=== PATIENT | female | born 1965 | race Caucasian/White ===

== ENCOUNTER 2017-01-01 15:46 | Emergency (ER) | payer BC ==
[~2017-01-01] VITALS: Ht 162.6 cm; Wt 122.9 kg
[2017-01-01] MEDS ORDERED: PREV30CA11 PO (16:03)
[2017-01-01] MEDS ORDERED: NAPR500T PO (17:50)
[2017-01-01 17:58] VITALS: BP 136/75
--- NOTE | 2017-01-01 18:02 | REP ---
RIGHT LOWER EXTREMITY ULTRASOUND: HISTORY: Pain and swelling. COMPARISON: None. TECHNIQUE: Multiple ultrasonographic images of the deep venous structures of the right thigh were obtained from the common femoral vein to the popliteal vein along with Doppler interrogation and color flow Doppler images. FINDINGS: There is no abnormal echogenic material seen within any of the visualized deep venous structures that would suggest acute thrombosis. Coaptation is unremarkable throughout. Doppler interrogation shows an expected response to respiratory variability and augmentation. The color flow images show what appears to be a normal vascular pattern throughout. IMPRESSION: There is no ultrasonographic evidence of deep venous thrombosis involving any of the visualized deep venous structures of the right thigh, as described above. Signed by Gee Redd DO 01/03/2017 03:43 P
== END 2017-01-01 18:02 | disposition home or self-care (01) ==
LOC: M ED 17:19
DX: M25.561 Pain in right knee (principal); E11.9 Type 2 diabetes mellitus without complications; I51.7 Cardiomegaly; E66.01 Morbid (severe) obesity due to excess calories; Z88.5 Allergy status to narcotic agent; Z87.891 Personal history of nicotine dependence; Z79.899 Other long term (current) drug therapy

== ENCOUNTER → 2017-01-16 | Outpatient (CLI) | payer BC ==
[~2017-01-16] MED LIST: NAPR500T PO; PREV30CA11 PO
[2017-01-16 10:59] LABS: ALBUMIN 3.4 GM/DL (3.2-5.2); ALKALINE PHOSPHATASE 88 U/L (45-117); ALT/SGPT 30 U/L (12-78); ANION GAP 10 MEQ/L (8-16); AST/SGOT 8 U/L (15-37); BILIRUBIN,TOTAL 0.5 MG/DL (0.2-1.0); BLOOD UREA NITROGEN 13 MG/DL (7-18); CALCIUM LEVEL 8.3 MG/DL (8.5-10.1); CARBON DIOXIDE LEVEL 27 MEQ/L (21-32); CHLORIDE LEVEL 101 MEQ/L (98-107); CHOLESTEROL LEVEL 187 MG/DL (<200); CREATININE FOR GFR 0.58 MG/DL (0.55-1.02); FERRITIN 13 NG/ML (8-252); GLOMERULAR FILTRATION RATE > 60.0 (>51); GLUCOSE, FASTING 95 MG/DL (70-105); MEAN CORPUSCULAR HGB CONC 32.5 g/dl (32.0-36.5); PERCENT SATURATION 13.9 % (13.2-37.4); POTASSIUM SERUM 4.2 MEQ/L (3.5-5.1); RED CELL DISTRIBUTION WIDTH 14.4 % (11.5-14.5); SODIUM LEVEL 138 MEQ/L (136-145); TOTAL IRON BINDING CAPACITY 380 UG/DL (250-450); TOTAL PROTEIN 6.8 GM/DL (6.4-8.2); TRIGLYCERIDES LEVEL 71 MG/DL (<150); WHITE BLOOD COUNT 8.8 K/mm3 (4.0-10.0)
[2017-01-16 11:05] LABS: VITAMIN B12 LEVEL 207 PG/ML (247-911)
== END ==
LOC: M LAB 09:35
PROVIDERS: ATTEND Physician Assistant
DX: D64.9 Anemia, unspecified (principal); E78.2 Mixed hyperlipidemia; E11.9 Type 2 diabetes mellitus without complications; K21.9 Gastro-esophageal reflux disease without esophagitis; E55.9 Vitamin D deficiency, unspecified; E53.8 Deficiency of other specified B group vitamins

== ENCOUNTER → 2017-02-11 | Outpatient (CLI) | payer BC ==
[~2017-02-11] MED LIST changes: +B-121KIT IJ; +IBUP-1114 PO; +LIPI10TA PO; +METF1000 PO
[2017-02-11 17:32] LABS: VITAMIN B12 LEVEL 289 PG/ML (247-911)
--- NOTE | 2017-02-11 22:51 | REP ---
Clinical: Pain. Technique: AP, lateral, bilateral oblique and sunrise views of the right knee. Impression: Medial tibiofemoral and lateral patellofemoral joint space narrowing is appreciated with associated areas of subchondral sclerosis. Very subtle early spurring along the lateral femoral condyle and lateral tibial margin is also suggested. No acute fracture dislocation. No effusion. Impression: Mild/early moderate tricompartmental degenerative changes. Signed by Nii Garrido MD 02/11/2017 10:43 P
== END ==
LOC: M LAB 15:40
PROVIDERS: ATTEND Physician Assistant
DX: E55.9 Vitamin D deficiency, unspecified (principal); E53.8 Deficiency of other specified B group vitamins; M25.561 Pain in right knee; M17.11 Unilateral primary osteoarthritis, right knee

== ENCOUNTER 2017-02-16 11:33 | Emergency (ER) | payer BC ==
[~2017-02-16] VITALS: Ht 165.1 cm; Wt 129.3 kg
[~2017-02-16 11:33] MED LIST changes: -B-121KIT IJ; -IBUP-1114 PO; -LIPI10TA PO; -METF1000 PO
[2017-02-16 11:34] VITALS: BP 131/70
[2017-02-16] MEDS ORDERED: B-121KIT IJ (11:48)
[2017-02-16] MEDS ORDERED: METF1000 PO (11:48)
[2017-02-16] MEDS ORDERED: LIPI10TA PO (11:48)
[2017-02-16] MEDS ORDERED: IBUP-1114 PO (11:48)
== END 2017-02-16 12:43 | disposition home or self-care (01) ==
LOC: M ED 12:19
DX: M25.561 Pain in right knee (principal); M25.461 Effusion, right knee; M17.11 Unilateral primary osteoarthritis, right knee; I51.7 Cardiomegaly; E11.9 Type 2 diabetes mellitus without complications; Z79.899 Other long term (current) drug therapy; Z79.84 Long term (current) use of oral hypoglycemic drugs; Z79.1 Long term (current) use of non-steroidal anti-inflammatories (NSAID); Z88.5 Allergy status to narcotic agent

== ENCOUNTER 2017-03-20 12:06 | Outpatient (RCR) | payer BC ==
[~2017-03-20 12:06] MED LIST changes: +B-121KIT IJ; +IBUP-1114 PO; +LIPI10TA PO; +METF10004 PO; +PREV1CAP PO; -PREV30CA11 PO
[2017-05-30] MEDS ORDERED: OXYC1TAB23 PO (08:30)
[2017-05-30] MEDS ORDERED: DRIS50002 PO (08:30)
[2017-05-30] MEDS ORDERED: ASPI325T PO (08:30)
== END 2017-04-14 | disposition home or self-care (01) ==
LOC: M PT 12:06
PROVIDERS: ATTEND Orthopaedic Surgery
DX: Z51.89 Encounter for other specified aftercare (principal); S83.281D Other tear of lateral meniscus, current injury, right knee, subsequent encounter; X58.XXXD Exposure to other specified factors, subsequent encounter; Y92.9 Unspecified place or not applicable; Y93.9 Activity, unspecified; Y99.9 Unspecified external cause status

== ENCOUNTER → 2017-04-18 | Outpatient (CLI) | payer BC ==
[~2017-04-18] MED LIST changes: +ASPI325T PO; +DRIS50002 PO; +OXYC1TAB23 PO
[2017-04-18 09:53] LABS: BASO % 0.1 % (0.0-1.0); EOS # 0.1 K/mm3 (0.0-0.50); EOS % 1.4 % (0.0-3.0); LARGE UNSTAINED CELL # 0.1 K/mm3 (0.0-0.4); LARGE UNSTAINED CELL % 1.1 % (0.0-4.0); LYMPH # 2.2 K/mm3 (1.5-4.5); LYMPH % 21.6 % (24.0-44.0); MEAN CORPUSCULAR HEMOGLOBIN 27.6 pg (27.0-33.0); MEAN CORPUSCULAR HGB CONC 33.5 g/dl (32.0-36.5); MEAN CORPUSCULAR VOLUME 82.5 fl (80.0-96.0); MONO # 0.6 K/mm3 (0.0-0.8); MONO % 6.5 % (0.0-5.0); NEUTROPHILS # 6.7 K/mm3 (1.8-7.7); NEUTROPHILS % 69.3 % (36.0-66.0); PLATELET COUNT, AUTOMATED 342 k/mm3 (150-450); RED CELL DISTRIBUTION WIDTH 15.1 % (11.5-14.5); WHITE BLOOD COUNT 9.7 K/mm3 (4.0-10.0)
[2017-04-18 10:05] LABS: ALBUMIN 3.5 GM/DL (3.2-5.2); ALBUMIN/GLOBULIN RATIO 0.97 (1.00-1.93); ALKALINE PHOSPHATASE 97 U/L (45-117); ALT/SGPT 33 U/L (12-78); ANION GAP 7 MEQ/L (8-16); AST/SGOT 8 U/L (15-37); BILIRUBIN,TOTAL 0.4 MG/DL (0.2-1.0); BLOOD UREA NITROGEN 10 MG/DL (7-18); CALCIUM LEVEL 8.7 MG/DL (8.5-10.1); CARBON DIOXIDE LEVEL 30 MEQ/L (21-32); CHLORIDE LEVEL 102 MEQ/L (98-107); CHOLESTEROL LEVEL 144 MG/DL (<200); CREATININE FOR GFR 0.65 MG/DL (0.55-1.02); GLOMERULAR FILTRATION RATE > 60.0 (>51); GLUCOSE, FASTING 107 MG/DL (70-105); POTASSIUM SERUM 4.3 MEQ/L (3.5-5.1); SODIUM LEVEL 139 MEQ/L (136-145); TOTAL PROTEIN 7.1 GM/DL (6.4-8.2); TRIGLYCERIDES LEVEL 109 MG/DL (<150)
== END ==
LOC: M LAB 08:37
PROVIDERS: ATTEND Physician Assistant
DX: E13.65 Other specified diabetes mellitus with hyperglycemia (principal)

== ENCOUNTER → 2017-06-10 | Outpatient (CLI) | payer BC ==
--- NOTE | 2017-06-10 21:18 | ECGEPIP ---
Stationary ECG Study [facility] Test Date: 2017-06-10 Pat Name: HENRRY ALARCON Department: Room: - Gender: F Padder Cushion: GINNY : 1965 Requested By: Jose Eduardo Rene Order Number: [id number] Reading MD: Tony Duckworth Measurements Intervals J[place]re Rate: 82 P: 65 AR: 174 QRS: 44 QRSD: 100 T: 21 QT: 370 QTc: 432 Interpretive Statements SINUS RHYTHM POSSIBLE INFERIOR MYOCARDIAL INFARCTION, PROBABLY OLD MODERATE T-WAVE ABNORMALITY, CONSIDER ISCHEMIA NO PRIOR TRACING IN THE SYSTEM Electronically Signed On 06-10-2017 21:18:07 EDT by Tony Duckworth
== END ==
LOC: M EKG 16:15
PROVIDERS: ATTEND Anesthesiology
DX: Z01.810 Encounter for preprocedural cardiovascular examination (principal); E11.9 Type 2 diabetes mellitus without complications; R94.31 Abnormal electrocardiogram [ECG] [EKG]

== ENCOUNTER 2017-06-13 10:40 | Day surgery (SDC) | payer BC ==
[~2017-06-13] VITALS: Ht 165.1 cm; Wt 131.5 kg
[2017-06-13] MEDS ORDERED: LR 1,000 ML IV ONE (10:45)
[2017-06-13] MEDS ORDERED: EPINEPHrine INJ 1 MG/ML 1ML AMP As Ordered ONE (12:24)
[2017-06-13] MEDS ORDERED: ROPIvacaine 0.5% 30 ML INJECTION (J2795) As Ordered ONE (12:24)
[2017-06-13] MEDS ORDERED: ONDANSETRON 4MG/2ML VIAL (J2405) As Ordered ONE (13:49)
[2017-06-13] MEDS ORDERED: MIDAZOLAM INJ 5 MG/ML VIAL (J2250) As Ordered ONE (13:49)
[2017-06-13] MEDS ORDERED: fentaNYL 100 MCG/2 ML INJECTION (J3010) As Ordered ONE (13:49)
[2017-06-13] MEDS ORDERED: TRIAMCINOLONE ACETONIDE SUSP 40 MG/ML VIAL (J3301) As Ordered ONE (13:54)
[2017-06-13] MEDS ORDERED: ONDANSETRON 4MG/2ML VIAL (J2405) IV PRN (14:30)
[2017-06-13] MEDS ORDERED: METOCLOPRAMIDE INJ 10MG/2ML VIAL (J2765) IV PRN (14:30)
[2017-06-13] MEDS ORDERED: fentaNYL 100 MCG/2 ML INJECTION (J3010) IV PRN (14:30)
[2017-06-13] MEDS ORDERED: LR 1,000 ML IV SCH (14:30)
[2017-06-13] MEDS ORDERED: NORCO, ANEXSIA 5/325MG TABLET (HYDROcodone/ACETAMINOPHEN) PO PRN ×2 (14:45)
[2017-06-13] MEDS ORDERED: MORPHINE 4 MG/ML 1ML SYRINGE IV PRN (14:45)
[2017-06-13 20:00] VITALS: BP 143/87
--- NOTE | 2017-06-14 07:35 | RO ---
DATE OF PROCEDURE: 06/13/2017 PREPROCEDURE DIAGNOSIS: Right knee medial meniscus tear with degenerative arthritis. POSTPROCEDURE DIAGNOSIS: Right knee medial meniscus tear with degenerative arthritis. PROCEDURE: 1. Right knee partial medial meniscectomy. 2. Right knee chondroplasty of the medial femoral condyle and the trochlea. SURGEON: Dr. Dana Short. SHANK BURNISHER: ANESTHESIA: Spinal. COMPLICATIONS: None. SPECIMENS: The medial meniscus. ESTIMATED BLOOD LOSS: None. PROCEDURE: Antibiotics were given intravenously preoperatively, then a successful spinal anesthetic was established and a tourniquet was placed on the right upper thigh and not inflated and then right lower extremity was carefully prepped and then draped in the usual sterile fashion. Then after appropriate time out, the leg was elevated and the tourniquet was inflated. Insufflation portal was established superiorly and medially. Scope was introduced anterolaterally, working portal anteromedially and introduced the arthroscope and supported the joint. She had some grade 3 chondromalacia of the trochlea and a little bit on the patella as well. The ACL was intact. The lateral meniscus was intact. Lateral compartment had some grade 2 chondromalacia of the lateral tibial condyle. In the medial compartment, there was quite a bit of extensive grade 3 chondromalacia of the medial femoral condyle. In addition to this, there was an underlying posterior horn medial meniscus degenerative type tear. This was all photographed. I first addressed the plica in front of the ACL with the shaver from the anterior medial working portal. Insufflation portal was established superiorly and medially. Scope was introduced anterolaterally. I then inspected the medial femoral condyle and lightly debrided the loose fragments of articular cartilage surface and then explored the underlying degenerative medial meniscus tear. There was a combination of a horizontal cleavage and some parrot beak type tears. This was debrided back with a #4-0 shaver as well as the basket punches and I actually at one point established the visualization portal through the anterior medial portal and worked through the anterior lateral portal to get more of the mid portion of the medial meniscus from a better angle. Photographs were taken before and after the debridement. I felt that the debridement balanced the meniscus and took care of most of the tears nicely. I then also addressed the trochlear chondromalacia with a shaver and smoothed that off as best as possible and documented photographs along the way. Finally no other pathology was arthroscopically treatable at this point. We concluded the procedure then by copiously irrigating out the knee joint and instilling ropivacaine and I did add some Kenalog 40 as well to help with postoperative analgesia. Dry sterile bulky dressing was then applied. Tourniquet was released and then she was transferred to the recovery room in stable condition. There were no intraoperative complications.
== END 2017-06-13 20:15 | disposition home or self-care (01) ==
LOC: M SDC 10:40
PROVIDERS: ATTEND Orthopaedic Surgery
DX: S83.231D Complex tear of medial meniscus, current injury, right knee, subsequent encounter (principal); M94.261 Chondromalacia, right knee; M17.11 Unilateral primary osteoarthritis, right knee; X50.0XXA Overexertion from strenuous movement or load, initial encounter; Y92.512 Supermarket, store or market as the place of occurrence of the external cause; Y93.89 Activity, other specified; Y99.0 Civilian activity done for income or pay; K58.9 Irritable bowel syndrome, unspecified; D64.9 Anemia, unspecified; G43.909 Migraine, unspecified, not intractable, without status migrainosus; K21.9 Gastro-esophageal reflux disease without esophagitis; E11.9 Type 2 diabetes mellitus without complications; E78.00 Pure hypercholesterolemia, unspecified; Z88.5 Allergy status to narcotic agent; Z79.899 Other long term (current) drug therapy; Z79.84 Long term (current) use of oral hypoglycemic drugs; Z79.82 Long term (current) use of aspirin; Z98.51 Tubal ligation status
CPT/HCPCS: 29881; J0690; J2250; J2405; J2795; J3010; J3301

== ENCOUNTER 2017-07-10 14:04 | Outpatient (RCR) | payer BC | END 2017-07-15 | LOC: M PT 14:04 | PROVIDERS: ATTEND Orthopaedic Surgery | DX: Z51.89 Encounter for other specified aftercare (principal); M25.561 Pain in right knee ==

== ENCOUNTER 2017-07-29 14:05 | Outpatient (RCR) | payer BC | END 2017-08-14 | LOC: M PT 14:05 | PROVIDERS: ATTEND Orthopaedic Surgery | DX: Z47.89 Encounter for other orthopedic aftercare (principal) ==

== ENCOUNTER 2017-08-27 14:46 | Outpatient (RCR) | payer BC | END 2017-09-14 | LOC: M PT 14:46 | DX: Z51.89 Encounter for other specified aftercare (principal); M25.561 Pain in right knee | CPT/HCPCS: G0283 ==

== ENCOUNTER → 2017-08-28 | Outpatient (CLI) | payer BC ==
[2017-08-28 10:07] LABS: BASO # 0.1 10^3/uL (0.0-0.2); BASO % 0.8 % (0.0-1.0); EOS % 0.2 % (0.0-3.0); IMMATURE GRANULOCYTE % 0.2 % (0-0); LYMPH # 2.9 10^3/uL (1.5-4.5); MEAN CORPUSCULAR HEMOGLOBIN 27.6 pg (27.0-33.0); MEAN CORPUSCULAR HGB CONC 32.7 g/dl (32.0-36.5); MEAN CORPUSCULAR VOLUME 84.5 fl (80.0-96.0); MONO # 0.6 10^3/uL (0.0-0.8); MONO % 7.2 % (0.0-5.0); NEUTROPHILS # 5.2 10^3/uL (1.8-7.7); NEUTROPHILS % 58.6 % (36.0-66.0); PLATELET COUNT, AUTOMATED 422 10^3/uL (150-450); RED CELL DISTRIBUTION WIDTH 14.3 % (11.5-14.5); WHITE BLOOD COUNT 8.9 10^3/uL (4.0-10.0)
[2017-08-28 10:40] LABS: ALBUMIN/GLOBULIN RATIO 1.14 (1.00-1.93); ALKALINE PHOSPHATASE 108 U/L (45-117); ALT/SGPT 46 U/L (12-78); ANION GAP 8 MEQ/L (8-16); AST/SGOT 14 U/L (7-37); BILIRUBIN,TOTAL 0.5 MG/DL (0.2-1.0); BLOOD UREA NITROGEN 12 MG/DL (7-18); CALCIUM LEVEL 8.9 MG/DL (8.5-10.1); CARBON DIOXIDE LEVEL 27 MEQ/L (21-32); CHLORIDE LEVEL 104 MEQ/L (98-107); CREATININE FOR GFR 0.73 MG/DL (0.55-1.02); FERRITIN 20 NG/ML (8-252); FREE T4 1.02 NG/DL (0.76-1.46); GLOMERULAR FILTRATION RATE > 60.0 (>51); GLUCOSE, FASTING 93 MG/DL (70-105); PERCENT SATURATION 13.5 % (13.2-45.0); POTASSIUM SERUM 4.6 MEQ/L (3.5-5.1); SODIUM LEVEL 139 MEQ/L (136-145); TOTAL IRON BINDING CAPACITY 392 UG/DL (250-450); TOTAL PROTEIN 7.5 GM/DL (6.4-8.2)
== END ==
LOC: M LAB 09:02
PROVIDERS: ATTEND Physician Assistant
DX: E11.9 Type 2 diabetes mellitus without complications (principal)

== ENCOUNTER 2017-09-16 15:31 | Outpatient (RCR) | payer BC | END 2017-10-15 | LOC: M PT 15:31 | DX: Z51.89 Encounter for other specified aftercare (principal); M25.569 Pain in unspecified knee ==

== ENCOUNTER 2017-10-16 14:41 | Outpatient (RCR) | payer BC | END 2017-11-12 | LOC: M PT 14:41 | DX: Z51.89 Encounter for other specified aftercare (principal); M23.91 Unspecified internal derangement of right knee ==

== ENCOUNTER → 2018-06-10 | Outpatient (CLI) | payer BC ==
[2018-06-10 10:30] LABS: BASO % 0.5 % (0.0-1.0); HEMATOCRIT 42.7 % (36.0-47.0); HEMOGLOBIN 13.8 g/dl (12.0-15.5); IMMATURE GRANULOCYTE % 0.2 % (0-3.0); LYMPH # 2.7 10^3/uL (1.5-4.5); LYMPH % 30.5 % (24.0-44.0); MEAN CORPUSCULAR HEMOGLOBIN 26.8 pg (27.0-33.0); MEAN CORPUSCULAR HGB CONC 32.3 g/dl (32.0-36.5); MEAN CORPUSCULAR VOLUME 83.1 fl (80.0-96.0); MONO # 0.6 10^3/uL (0.0-0.8); MONO % 6.7 % (0.0-5.0); NEUTROPHILS # 5.4 10^3/uL (1.8-7.7); NEUTROPHILS % 62.1 % (36.0-66.0); PLATELET COUNT, AUTOMATED 435 10^3/uL (150-450); RED BLOOD COUNT 5.14 10^6/uL (4.00-5.40); RED CELL DISTRIBUTION WIDTH 14.2 % (11.5-14.5); WHITE BLOOD COUNT 8.7 10^3/uL (4.0-10.0)
[2018-06-10 10:54] LABS: ESTIMATED AVERAGE GLUCOSE 143 MG/DL (60-110); HEMOGLOBIN A1c 6.6 %
[2018-06-10 11:10] LABS: ALBUMIN 4.1 GM/DL (3.2-5.2); ALBUMIN/GLOBULIN RATIO 1.03 (1.00-1.93); ALKALINE PHOSPHATASE 120 U/L (45-117); ALT/SGPT 36 U/L (12-78); ANION GAP 9 MEQ/L (8-16); AST/SGOT 7 U/L (7-37); BILIRUBIN,TOTAL 0.5 MG/DL (0.2-1.0); BLOOD UREA NITROGEN 15 MG/DL (7-18); CALCIUM LEVEL 9.4 MG/DL (8.5-10.1); CARBON DIOXIDE LEVEL 28 MEQ/L (21-32); CHLORIDE LEVEL 103 MEQ/L (98-107); CHOLESTEROL LEVEL 208 MG/DL (<200); CHOLESTEROL RISK RATIO 3.586 (<5); GLOMERULAR FILTRATION RATE > 60.0 (>51); GLUCOSE, FASTING 93 MG/DL (70-100); HDL CHOLESTEROL 58 MG/DL (>40); LDL CHOLESTEROL 128 MG/DL (<100); MALB URINE SIEMENS 15.4 MG/L; NON-HDL-C 150 MG/DL; POTASSIUM SERUM 4.4 MEQ/L (3.5-5.1); SODIUM LEVEL 140 MEQ/L (136-145); TOTAL PROTEIN 8.1 GM/DL (6.4-8.2); TRIGLYCERIDES LEVEL 111 MG/DL (<150)
[2018-06-10 11:14] LABS: TOTAL 25(OH) VITAMIN D 16.7 NG/ML (30.0-100.0)
[2018-06-10 11:15] LABS: MAU/CREAT RATIO 12.3 MCG/MG (0.0-30.0)
== END ==
LOC: M LAB 09:36
DX: D64.9 Anemia, unspecified (principal); E78.2 Mixed hyperlipidemia; E11.9 Type 2 diabetes mellitus without complications; R80.9 Proteinuria, unspecified; E55.9 Vitamin D deficiency, unspecified; E53.8 Deficiency of other specified B group vitamins
CPT/HCPCS: 82607

== ENCOUNTER → 2018-10-06 | Outpatient (CLI) | payer BC ==
[~2018-10-06] MED LIST changes: -DRIS50002 PO; +DRIS50003 PO; +NAPR-50 PO; -NAPR500T PO
[2018-10-06 14:17] LABS: BASO % 0.3 % (0.0-1.0); HEMATOCRIT 37.5 % (36.0-47.0); HEMOGLOBIN 12.4 g/dl (12.0-15.5); LYMPH # 3.1 10^3/uL (1.5-4.5); LYMPH % 25.9 % (24.0-44.0); MEAN CORPUSCULAR HEMOGLOBIN 27.2 pg (27.0-33.0); MEAN CORPUSCULAR HGB CONC 33.1 g/dl (32.0-36.5); MEAN CORPUSCULAR VOLUME 82.2 fl (80.0-96.0); MONO # 0.8 10^3/uL (0.0-0.8); NEUTROPHILS # 7.9 10^3/uL (1.8-7.7); NEUTROPHILS % 66.5 % (36.0-66.0); PLATELET COUNT, AUTOMATED 377 10^3/uL (150-450); RED BLOOD COUNT 4.56 10^6/uL (4.00-5.40); WHITE BLOOD COUNT 11.9 10^3/uL (4.0-10.0)
[2018-10-06 14:45] LABS: ALBUMIN 3.3 GM/DL (3.2-5.2); ALT/SGPT 26 U/L (12-78); BILIRUBIN,TOTAL 0.3 MG/DL (0.2-1.0); BLOOD UREA NITROGEN 13 MG/DL (7-18); CALCIUM LEVEL 8.3 MG/DL (8.5-10.1); CARBON DIOXIDE LEVEL 25 MEQ/L (21-32); CHLORIDE LEVEL 105 MEQ/L (98-107); CHOLESTEROL LEVEL 171 MG/DL (<200); CHOLESTEROL RISK RATIO 2.803 (<5); CREATININE FOR GFR 0.72 MG/DL (0.55-1.30); FREE T4 0.84 NG/DL (0.76-1.46); GLOMERULAR FILTRATION RATE > 60.0 (>51); GLUCOSE, FASTING 99 MG/DL (70-100); HDL CHOLESTEROL 61 MG/DL (>40); LDL CHOLESTEROL 90 MG/DL (<100); NON-HDL-C 110 MG/DL; POTASSIUM SERUM 3.9 MEQ/L (3.5-5.1); SODIUM LEVEL 139 MEQ/L (136-145); TOTAL PROTEIN 6.9 GM/DL (6.4-8.2); TRIGLYCERIDES LEVEL 100 MG/DL (<150)
[2018-10-06 14:57] LABS: TOTAL 25(OH) VITAMIN D 17.5 NG/ML (30.0-100.0)
[2018-10-07 09:53] LABS: VITAMIN B12 LEVEL 261 PG/ML (232-1245)
== END ==
LOC: M LAB 13:47
PROVIDERS: ATTEND Physician Assistant
DX: D64.9 Anemia, unspecified (principal); E78.2 Mixed hyperlipidemia; E55.9 Vitamin D deficiency, unspecified; E53.8 Deficiency of other specified B group vitamins; Z13.29 Encounter for screening for other suspected endocrine disorder

== ENCOUNTER → 2018-10-24 | Outpatient (CLI) | payer BC ==
[2018-10-24 14:54] LABS: C REACTIVE PROTEIN QUANTITATIV 1.69 MG/DL (0.00-0.30); RHEUMATOID FACTOR QUANT < 10.0 IU/ML (<15.0); URIC ACID 3.9 MG/DL (2.6-6.0)
--- NOTE | 2018-10-25 09:57 | REP ---
BILATERAL HAND SERIES: Four views of bilateral hands performed. There is no fracture or dislocation. There is minimal diffuse narrowing of the distal interphalangeal joints bilaterally. Tiny calcific density is seen at the medial margin of the left second distal interphalangeal joint possibly from prior trauma. There is a tiny spur at the medial base of the second middle phalanx. There is a tiny nonspecific soft tissue calcification in the lateral base of the left second digit. No other significant findings are seen. IMPRESSION: Minor diffuse joint space narrowing of the distal interphalangeal joints bilaterally. Electronically Signed by Douglas Rodriguez MD 10/25/2018 06:58 P
--- NOTE | 2018-10-25 09:59 | REP ---
LEFT SHOULDER, THREE VIEWS: Three views of the left shoulder are performed. There is no fracture, dislocation, or intrinsic bone disease. Joint spaces are unremarkable. IMPRESSION: Negative left shoulder. Electronically Signed by Douglas Rodriguez MD 10/25/2018 06:58 P
--- NOTE | 2018-10-25 09:59 | REP ---
STANDING AP BILATERAL KNEES: Standing AP view of bilateral knees performed. There is no fracture or dislocation. There is moderate medial joint space narrowing bilaterally in a fairly symmetrical fashion with subchondral sclerosis on both sides of the medial joint space bilaterally. There is mild spurring of the femoral condyles. IMPRESSION: Moderate medial degenerative joint disease bilaterally symmetrically. Electronically Signed by Douglas Rodriguez MD 10/25/2018 06:58 P
--- NOTE | 2018-10-25 10:02 | REP ---
LEFT FOOT SERIES: Four views of the left foot performed. There is no acute fracture or dislocation. Moderate posterior calcaneal spurring is present and there is mild inferior calcaneal spurring as well. There is mild joint space narrowing and subchondral sclerosis at the first metatarsal phalangeal joint. There is mild diffuse narrowing of the interphalangeal joints. IMPRESSION: Degenerative changes as above. Electronically Signed by Douglas Rodriguez MD 10/25/2018 06:58 P
== END ==
LOC: M LAB 13:38
PROVIDERS: ATTEND Internal Medicine Rheumatology
DX: M79.643 Pain in unspecified hand (principal); M79.672 Pain in left foot; M17.0 Bilateral primary osteoarthritis of knee; M25.512 Pain in left shoulder

== ENCOUNTER → 2018-12-04 | Outpatient (REF) | payer BC ==
[2018-12-04 17:38] LABS: INFLUENZA A AMPLIFICATION POSITIVE (NEGATIVE); INFLUENZA B AMPLIFICATION NEGATIVE (NEGATIVE)
== END ==
LOC: M LAB REF 16:54
PROVIDERS: ATTEND Physician Assistant
DX: J11.1 Influenza due to unidentified influenza virus with other respiratory manifestations (principal)

== ENCOUNTER → 2018-12-25 | Outpatient (REF) | payer BC ==
[~2018-12-25] MED LIST changes: +ASPI-1 PO; -ASPI325T PO; -NAPR-50 PO; +NAPR-837 PO
== END ==
LOC: M SFHCSACK 16:57
PROVIDERS: ATTEND Physician Assistant
DX: R30.0 Dysuria (principal)

== ENCOUNTER → 2019-02-26 | Outpatient (CLI) | payer BC ==
[2019-02-26 15:22] LABS: BASO % 0.2 % (0.0-1.0); EOS % 0.2 % (0.0-3.0); HEMATOCRIT 39.4 % (36.0-47.0); HEMOGLOBIN 12.8 g/dl (12.0-15.5); LYMPH % 32.6 % (24.0-44.0); MEAN CORPUSCULAR HGB CONC 32.5 g/dl (32.0-36.5); MEAN CORPUSCULAR VOLUME 83.1 fl (80.0-96.0); MONO # 0.7 10^3/uL (0.0-0.8); MONO % 7.1 % (0.0-5.0); NEUTROPHILS # 5.5 10^3/uL (1.8-7.7); NEUTROPHILS % 59.6 % (36.0-66.0); PLATELET COUNT, AUTOMATED 358 10^3/uL (150-450); RED BLOOD COUNT 4.74 10^6/uL (4.00-5.40); WHITE BLOOD COUNT 9.2 10^3/uL (4.0-10.0)
[2019-02-26 15:58] LABS: CREATININE, URINE 82.2 MG/DL; MAU/CREAT RATIO 12.1 MCG/MG (0.0-30.0)
[2019-02-26 16:00] LABS: ALBUMIN 3.8 GM/DL (3.2-5.2); ALT/SGPT 35 U/L (12-78); BILIRUBIN,TOTAL 0.4 MG/DL (0.2-1.0); BLOOD UREA NITROGEN 14 MG/DL (7-18); CALCIUM LEVEL 9.5 MG/DL (8.5-10.1); CARBON DIOXIDE LEVEL 29 MEQ/L (21-32); CHLORIDE LEVEL 104 MEQ/L (98-107); CHOLESTEROL LEVEL 190 MG/DL (<200); CHOLESTEROL RISK RATIO 3.454 (<5); CREATININE FOR GFR 0.87 MG/DL (0.55-1.30); FERRITIN 24 NG/ML (8-252); FREE T4 1.07 NG/DL (0.76-1.46); GLOMERULAR FILTRATION RATE > 60.0 (>51); GLUCOSE, FASTING 106 MG/DL (70-100); HDL CHOLESTEROL 55 MG/DL (>40); IRON (FE) 38 UG/DL (50-170); LDL CHOLESTEROL 114 MG/DL (<100); NON-HDL-C 135 MG/DL; PERCENT SATURATION 11.1 % (13.2-45.0); POTASSIUM SERUM 3.9 MEQ/L (3.5-5.1); SODIUM LEVEL 139 MEQ/L (136-145); TOTAL 25(OH) VITAMIN D 25.7 NG/ML (30.0-100.0); TOTAL IRON BINDING CAPACITY 343 UG/DL (250-450); TOTAL PROTEIN 7.7 GM/DL (6.4-8.2); TRIGLYCERIDES LEVEL 106 MG/DL (<150); VITAMIN B12 LEVEL 228 PG/ML (247-911)
[2019-02-26 16:04] LABS: HEMOGLOBIN A1c 6.6 %
== END ==
LOC: M LAB 14:13
PROVIDERS: ATTEND Physician Assistant
DX: D64.9 Anemia, unspecified (principal); E78.2 Mixed hyperlipidemia; Z13.29 Encounter for screening for other suspected endocrine disorder; E55.9 Vitamin D deficiency, unspecified; E53.8 Deficiency of other specified B group vitamins; E11.9 Type 2 diabetes mellitus without complications

== ENCOUNTER → 2019-03-15 | Outpatient (CLI) | payer BC ==
[2019-03-15 14:58] LABS: BLOOD UREA NITROGEN 19 MG/DL (7-18); CALCIUM LEVEL 9.4 MG/DL (8.5-10.1); CARBON DIOXIDE LEVEL 31 MEQ/L (21-32); CHLORIDE LEVEL 102 MEQ/L (98-107); CREATININE FOR GFR 0.85 MG/DL (0.55-1.30); GLOMERULAR FILTRATION RATE > 60.0 (>51); GLUCOSE, FASTING 96 MG/DL (70-100); POTASSIUM SERUM 4.2 MEQ/L (3.5-5.1); SODIUM LEVEL 138 MEQ/L (136-145)
--- NOTE | 2019-03-16 07:51 | ECGEPIP ---
[facility] Test Date: 2019-03-15 Pat Name: HENRRY ALARCON Department: Room: - Gender: Female Flight Mechanic: GINNY : 1965 Requested By: Yaz Padilla PA-C Order Number: [id number] Reading MD: Chayito Steiner Measurements Intervals [place] Rate: 74 P: 66 VA: 178 QRS: 40 QRSD: 99 T: 12 QT: 394 QTc: 438 Interpretive Statements SINUS RHYTHM T WAVE ABNORMALITY V3 NO CHANGE COMPARED TO 06/10/17 Electronically Signed on 03-16-2019 7:51:15 EDT by Chayito Steiner
== END ==
LOC: M LAB 13:47
PROVIDERS: ATTEND Physician Assistant Surgical
DX: Z01.812 Encounter for preprocedural laboratory examination (principal); R22.31 Localized swelling, mass and lump, right upper limb

== ENCOUNTER → 2019-04-08 | Outpatient (REF) | payer BC | LOC: M LAB REF 11:08 | PROVIDERS: ATTEND Orthopaedic Surgery | DX: M71.341 Other bursal cyst, right hand (principal) ==

== ENCOUNTER → 2019-09-03 | Outpatient (CLI) | payer BC ==
[2019-09-03 15:20] LABS: BASO % 0.3 % (0.0-1.0); EOS % 0.2 % (0.0-3.0); HEMATOCRIT 38.8 % (36.0-47.0); HEMOGLOBIN 12.5 g/dl (12.0-15.5); LYMPH # 3.5 10^3/uL (1.5-5.0); LYMPH % 29.8 % (24.0-44.0); MEAN CORPUSCULAR HEMOGLOBIN 27.4 pg (27.0-33.0); MEAN CORPUSCULAR HGB CONC 32.2 g/dl (32.0-36.5); MEAN CORPUSCULAR VOLUME 85.1 fl (80.0-96.0); MONO # 0.8 10^3/uL (0.0-0.8); MONO % 6.7 % (0.0-5.0); NEUTROPHILS # 7.3 10^3/uL (1.5-8.5); NEUTROPHILS % 62.8 % (36.0-66.0); PLATELET COUNT, AUTOMATED 372 10^3/uL (150-450); RED BLOOD COUNT 4.56 10^6/uL (4.00-5.40); WHITE BLOOD COUNT 11.6 10^3/uL (4.0-10.0)
[2019-09-03 15:54] LABS: ALBUMIN 3.7 GM/DL (3.2-5.2); ALT/SGPT 29 U/L (12-78); BILIRUBIN,TOTAL 0.4 MG/DL (0.2-1.0); BLOOD UREA NITROGEN 18 MG/DL (7-18); CALCIUM LEVEL 8.4 MG/DL (8.5-10.1); CARBON DIOXIDE LEVEL 29 MEQ/L (21-32); CHLORIDE LEVEL 105 MEQ/L (98-107); CHOLESTEROL LEVEL 188 MG/DL (<200); CHOLESTEROL RISK RATIO 3.186 (<5); CREATININE FOR GFR 0.81 MG/DL (0.55-1.30); FREE T4 1.07 NG/DL (0.76-1.46); GLOMERULAR FILTRATION RATE > 60.0 (>51); GLUCOSE, FASTING 95 MG/DL (70-100); HDL CHOLESTEROL 59 MG/DL (>40); LDL CHOLESTEROL 105 MG/DL (<100); NON-HDL-C 129 MG/DL; POTASSIUM SERUM 4.2 MEQ/L (3.5-5.1); SODIUM LEVEL 139 MEQ/L (136-145); TOTAL PROTEIN 7.3 GM/DL (6.4-8.2); TRIGLYCERIDES LEVEL 119 MG/DL (<150)
[2019-09-03 15:56] LABS: HEMOGLOBIN A1c 6.4 %
[2019-09-03 15:56] LABS: TOTAL 25(OH) VITAMIN D 23.1 NG/ML (30.0-100.0)
[2019-09-03 15:57] LABS: VITAMIN B12 LEVEL 259 PG/ML (247-911)
== END ==
LOC: M LAB 14:42
PROVIDERS: ATTEND Physician Assistant
DX: E78.2 Mixed hyperlipidemia (principal); D64.9 Anemia, unspecified; E03.9 Hypothyroidism, unspecified; E11.9 Type 2 diabetes mellitus without complications; E55.9 Vitamin D deficiency, unspecified

== ENCOUNTER → 2020-05-29 | Outpatient (CLI) | payer BC, OTHER ==
[2020-05-29 18:05] LABS: C REACTIVE PROTEIN QUANTITATIV 1.75 MG/DL (0.00-0.30); FREE T4 1.24 NG/DL (0.76-1.46); THYROID STIMULATING HORMONE 2.65 uIU/ML (0.358-3.740)
== END ==
LOC: M PLALAB 15:13
PROVIDERS: ATTEND Physician Assistant
DX: E03.9 Hypothyroidism, unspecified (principal); R51 Headache; H57.12 Ocular pain, left eye

== ENCOUNTER → 2020-08-21 | Outpatient (REF) | payer OTHER ==
[2020-08-21 18:44] LABS: CALCIUM LEVEL 8.5 MG/DL (8.5-10.1); CREATININE FOR GFR 1.04 MG/DL (0.55-1.30); GLOMERULAR FILTRATION RATE 58.8 (>51); POTASSIUM SERUM 4.8 MEQ/L (3.5-5.1)
== END ==
LOC: M SFHCPLAZ 15:13
PROVIDERS: ATTEND Physician Assistant
DX: R00.2 Palpitations (principal); E11.9 Type 2 diabetes mellitus without complications

== ENCOUNTER → 2020-09-04 | Outpatient (CLI) | payer OTHER ==
--- NOTE | 2020-09-04 10:20 | REPPI ---
INDICATION: J34.56 SINUS PAIN. COMPARISON: None. TECHNIQUE: Water's, PA, and lateral views FINDINGS: The sinuses are well aerated and essentially clear. No mucosal thickening, fluid level, or foreign body is appreciated. The osseous structures are intact and normal. The nasopharyngeal, or pharyngeal and upper tracheal airway appear patent. IMPRESSION: Normal examination. <Electronically signed by Nii Garrido > 09/04/20 1016
[2020-09-04 14:04] LABS: BASO # 0.1 10^3/uL (0.0-0.2); BASO % 0.4 % (0.0-1.0); HEMATOCRIT 48.5 % (36.0-47.0); HEMOGLOBIN 14.9 g/dl (12.0-15.5); LYMPH # 3.9 10^3/uL (1.5-5.0); LYMPH % 28.4 % (24.0-44.0); MEAN CORPUSCULAR HEMOGLOBIN 26.6 pg (27.0-33.0); MEAN CORPUSCULAR HGB CONC 30.7 g/dl (32.0-36.5); MEAN CORPUSCULAR VOLUME 86.5 fl (80.0-96.0); MONO % 7.3 % (0.0-5.0); NEUTROPHILS # 8.5 10^3/uL (1.5-8.5); NEUTROPHILS % 62.5 % (36.0-66.0); PLATELET COUNT, AUTOMATED 349 10^3/uL (150-450); RED BLOOD COUNT 5.61 10^6/uL (4.00-5.40); WHITE BLOOD COUNT 13.6 10^3/uL (4.0-10.0)
[2020-09-04 14:29] LABS: ERYTHROCYTE SEDIMENTATION RATE 9 mm/hr (0-30)
== END ==
LOC: M PLAIMG 09:40
PROVIDERS: ATTEND Internal Medicine
DX: R70.0 Elevated erythrocyte sedimentation rate (principal); R79.82 Elevated C-reactive protein (CRP); J34.89 Other specified disorders of nose and nasal sinuses

== ENCOUNTER → 2020-09-18 | Outpatient (CLI) | payer OTHER ==
--- NOTE | 2020-09-18 11:28 | REP ---
INDICATION: SINUS PAIN. COMPARISON: NONE. TECHNIQUE: Helical scanning is acquired and 2 mm axial images re-formatted. Coronal MPR images are generated and reviewed. FINDINGS: Digital preliminary scientific linguist radiographs are unremarkable. There is mucosal thickening and a small quantity of fluid in the right maxillary sinus. The maxillary sinuses are otherwise clear. Ethmoid, frontal, and sphenoid air cells are clear. Mastoid aeration is normal and symmetric. The mid bony nasal septum deviates to the left with a moderate size septal beak. Nasal turbinates soft tissues are symmetric. Ostiomeatal complexes are patent. There is an aerated small oren bullosa on the right. No intraorbital abnormality is seen. The facial soft tissues are unremarkable. There is mild vascular calcification in the distal internal carotid arteries. The visualized intracranial structures are otherwise unremarkable. IMPRESSION: Mucosal thickening right maxillary sinus. Leftward septal deviation. Otherwise negative. <Electronically signed by Tenzin Mckenzie > 09/18/20 1122
== END ==
LOC: M RAD 10:54
PROVIDERS: ATTEND Internal Medicine
DX: J34.89 Other specified disorders of nose and nasal sinuses (principal)

== ENCOUNTER → 2020-09-30 | Outpatient (CLI) | payer OTHER ==
[~2020-09-30] MED LIST changes: +ECOT81TA5 PO; +HYDR-3363; +LEVO50TA5 PO; +METF-838; +PRED5TA
== END ==
LOC: M LABSMTC 09:22
PROVIDERS: ATTEND Anesthesiology
DX: Z01.812 Encounter for preprocedural laboratory examination (principal); Z20.822 Contact with and (suspected) exposure to COVID-19

== ENCOUNTER 2020-10-05 11:10 | Day surgery (SDC) | payer OTHER ==
[~2020-10-05] VITALS: Ht 165.1 cm; Wt 136.5 kg
--- OUTSIDE RECORDS SUMMARY | 2020-10-05 06:13 | CCD ---
Author Author [facility] Organization [facility] Address Unknown Phone Unavailable Care Team Providers Care Air Conditioning Mechanic Industrial Name Role Phone Crystal Singh Unavailable PROBLEMS Type Condition ICD9-CM Code NEP79-VE Code Onset Dates Condition S tatus SNOMED Code Notes Problem Vaginal candidiasis B37.3 Active 37064329 Problem Controlled type 2 diabetes m ellitus without complication, without long- term current use of insulin E11.9 Active 39385257 4 Problem Anemia, unspecified D64.9 Active 761721598 Problem Mixed hyperlipidemia E78.2 Active 754140863 Problem Vitamin D deficiency E55.9 Active 05026561 Problem Vitamin B12 deficiency E53.8 Active 333656810 Problem Primary osteoarthritis, right hand M19.041 Activ e 2901458878050906 Problem Hemorrhoid 455.6 Active 22833527 Problem Body mass index (BMI) 45.0-49.9, adult Z68.42 A ctive 545921784 Problem Obesity, morbid, BMI 40.0-49.9 E66.01 Active 2 04878005 Problem Osteoarthritis of multiple joints, unspecified o steoarthritis type M15.9 Active 344963223 Problem Chronic gout of multiple sites, unspecified cause M1A.09X0 Active 73141903 Problem Primary osteoarthritis of both knees M17.0 Act yair 904936022 Problem Internal derangement of right knee M23.91 Activ e 928517797846829 Problem Gastroesophageal reflux disease without esophagitis K21.9 Active 310326215 Problem Anxiety F41.9 Active 57049740 Problem Primary osteoarthritis of left hand M19.042 Acti ve 94405790 Problem Candidiasis of vulva and vagina 112.1 Active 03032617 Problem Irritable bowel syndrome with constipation K58.1 Active 065865517 Problem Hypothyroidism, unspecified type E03.9 Active 19882681 Problem Pain of hand, unspecified laterality M79.643 Act yair 27271434 Problem Digital mucous cyst of finger of right hand M67.44 1 Active 330479330 Problem Primary osteoarthritis involving multiple joints M 15.0 Active 045764738 ALLERGIES Allergen (clinical drug ingredient) Drug/Non Drug Allergy do cumented on EMR Reaction Allergy Type Onset Date Status codeine Codeine Sulfate([facility] Code:[address]-04) RASH/HIVES Drug Al lergy Active ENCOUNTERS from 1965 to 2020-08-22 Encounter Location Date Provider Diagnosis [facility] [place] [address] 17 Jul, 2020 Crystal Francisco Left eye pain H57.12 IMMUNIZATIONS Vaccine Route Administration Date Status Influenza (18 yrs & older) Flublok IM Intramuscular Sep 17, 2019 Administered Influenza (18 yrs & older) Flublok IM Intramuscular Oct 07, 2018 Administered TDAP 0.5mL (Boostrix) IM Intramuscular February 21, 2017 Administe red Influenza (6mo & up) Fluzone IM Intramuscular Jul 23, 2017 Ad ministered SOCIAL HISTORY Tobacco Use: Social History Observation Description Date Details (start date - stop date) Former Smoker Sex Assigned At : Social History Observation Description Sex Assigned At Unknown Education: Question Answer Notes Level of Education: Finished High School Audit Question Answer Notes Total Score: 0 Interpretation: Alcohol Education Language: Question Answer Notes Languages spoken: Frisian Jainism: Question Answer Notes Jainism 13 Anglican Domestic Violence: Question Answer Notes Status: denies 06/2018 Sexual Hx: Question Answer Notes Had sex in the last 12 months (vaginal, oral, or anal)? No LMP: spots Have you ever had an STD? No Drug and Alcohol Question Answer Notes Total Score: 0 Interpretation: No problems reported Alcohol Screening: Question Answer Notes Did you have a drink containing alcohol in the past year? No Points 0 Interpretation Negative BMI Care Goal Follow-Up Question Answer Notes Above Normal BMI Follow-Up Dietary management educatio n, guidance, and counseling Tobacco Use: Question Answer Notes Are you a: former smoker How long has it been since you last smoked? > 10 years REASON FOR REFERRAL No Information VITAL SIGNS No information MEDICATIONS Medication SIG (Take, Route, Frequency, Duration) Notes Start Da te End Date Status Famotidine 40 MG 1 tablet at bedtime Orally Once a day for 30 da y(s) Aug, Active MetFORMIN HCl ER 500 MG 2 tablets with evening meal Orally Once a day for 30 day(s) Aug, Active Synthroid 50 MCG 1 tablet on an empty stomach in the morning Orally Once a day for 90 day(s) Sep, Active Vitamin B-12 1000 MCG as directed IM as needed monthly for 30 days Active PredniSONE 20 MG 2 tablet Orally Once a day for 30 Days Jun, Active HydrOXYzine HCl Not-Takin g Levothyroxine Sodium Not- Taking Blood Glucose Test - as directed In Vitro twice daily for 30 day (s) Feb, Active Januvia 100 MG 1 tablet Orally Once a day for 90 day(s) Dec, Not-Taking HydrOXYzine HCl 25 MG 1-2 tablets as needed Orally before bed fo r 30 day(s) Jul, Active Aspirin EC 81 MG 1 tablet Orally Once a day Active Drisdol 46159 UNIT 1 capsule Orally Once a week for 90 day(s) Nov, Active ProAir HFA 108 (90 Base) MCG/ACT 2 puffs as needed Inh alation every 6 hrs for 10 day(s) Dec, Active Cyclobenzaprine HCl Not-T aking Lidocaine 5 % 1 application to affected ar ea as needed Externally Three times a day as needed for 30 day(s) Feb, Acti ve Prevacid 30 MG 1 capsule Orally Twice a day for 90 day(s) Active Ibuprofen 800 MG 1 tablet with food or milk a s needed Orally Three times a day for 30 day(s) Jun, Active Blood Glucose System Edis - as directed intradermally twice d aily for 30 day(s) Feb, Active Lansoprazole Not-Taking Flexeril 10 mg 30 10 mg one tablet orally before bedtime for 30 days Dec, Active PROCEDURES No Information RESULTS No Results REASON FOR VISIT No Information MEDICAL (GENERAL) HISTORY Type Description Date Medical History type II diabetes, new 2013. Medical History hyperlipidemia Medical History sciatica/RIGHT LEG Medical History Esophageal reflux Medical History constipation/IBS Medical History abnormal pap smear/2000 Medical History anemia Medical History vitamin B12 deficiency Medical History thyroid issues- hypothyroid Medical History Candidal intertrigo Medical History Vitamin D Deficiency Surgical History carpal tunnel release/KATHY. 2003 Surgical History D&C, X 2 Surgical History laparoscopy 1987 Surgical History tubal ligation 1993 Surgical History COLPOSCOPY 2000 Surgical History Miscal tear repear right knee 2017 Goals Section No Information Health Concerns No Information MEDICAL EQUIPMENT No Information MENTAL STATUS No Information FUNCTIONAL STATUS No Information ASSESSMENTS Encounter Date Diagnosis Assessment Notes Treatment Notes Treatm ent Clinical Notes Jul, Left eye pain (ICD-10 - H57.12) PLAN OF TREATMENT Medication Medication Name Sig Start Date Stop Date Famotidine 40 MG 1 tablet at bedtime Orally Once a day fo r 30 day(s) Aug, MetFORMIN HCl ER 500 MG 2 tablets with evening meal Orally Once a day for 30 day(s) Aug, PredniSONE 20 MG 2 tablet Orally Once a day for 30 Days Jun, Next Appt Details Provider Name:Mona Brooks, 2020-08-31 08:15:00 AM, [address] [place], [address], Provider Name:Bibi Singh, 2020-09-28 10:00:00 AM, [address] [place] [address], [phone], Insurance Providers Payer Name Payer Address Payer Phone Insured Name Patient Relati onship to Insured Coverage Start Date Coverage End Date [facility] COMM[facility] [address] [facility] [phone] HENRRY ALARCON self 2015
--- OUTSIDE RECORDS SUMMARY | 2020-10-05 06:13 | CCD ---
Author Author [facility] Organization [facility] Address Unknown Phone Unavailable Care Team Providers Care Customer Service Agent Name Role Phone Crystal Singh Unavailable PROBLEMS Type Condition ICD9-CM Code [id number] Code Onset Dates Condition S tatus SNOMED Code Notes Problem Vaginal candidiasis B37.3 Active 05746743 Problem Controlled type 2 diabetes m ellitus without complication, without long- term current use of insulin E11.9 Active 27432866 4 Problem Anemia, unspecified D64.9 Active 476135584 Problem Mixed hyperlipidemia E78.2 Active 503996966 Problem Vitamin D deficiency E55.9 Active 66660518 Problem Vitamin B12 deficiency E53.8 Active 590765099 Problem Primary osteoarthritis, right hand M19.041 Activ e 0207142849870913 Problem Hemorrhoid 455.6 Active 60284383 Problem Body mass index (BMI) 45.0-49.9, adult Z68.42 A ctive 893241594 Problem Obesity, morbid, BMI 40.0-49.9 E66.01 Active 2 49292053 Problem Osteoarthritis of multiple joints, unspecified o steoarthritis type M15.9 Active 504762422 Problem Chronic gout of multiple sites, unspecified cause M1A.09X0 Active 62563353 Problem Primary osteoarthritis of both knees M17.0 Act yair 653365247 Problem Internal derangement of right knee M23.91 Activ e 875375172625058 Problem Gastroesophageal reflux disease without esophagitis K21.9 Active 004464386 Problem Anxiety F41.9 Active 30186741 Problem Primary osteoarthritis of left hand M19.042 Acti ve 88650617 Problem Candidiasis of vulva and vagina 112.1 Active 75607815 Problem Irritable bowel syndrome with constipation K58.1 Active 359943205 Problem Hypothyroidism, unspecified type E03.9 Active 77203173 Problem Pain of hand, unspecified laterality M79.643 Act yair 79136872 Problem Digital mucous cyst of finger of right hand M67.44 1 Active 226407760 Problem Primary osteoarthritis involving multiple joints M 15.0 Active 679533265 ALLERGIES Allergen (clinical drug ingredient) Drug/Non Drug Allergy do cumented on EMR Reaction Allergy Type Onset Date Status codeine Codeine Sulfate([facility] Code:[address]-23) RASH/HIVES Drug Al lergy Active ENCOUNTERS from 1965 to 2020-08-24 Encounter Location Date Provider Diagnosis [address] [address] Jul, Crystal Francisco Left eye pain H57.12 and Anxiety F41.9 IMMUNIZATIONS Vaccine Route Administration Date Status Influenza [...] Education Language: Question Answer Notes Languages spoken: Romansh Hindu: Question Answer Notes Hindu 13 [employer] Domestic Violence: Question Answer Notes Status: denies [...] REASON FOR REFERRAL No Information VITAL SIGNS Weight 297 lbs Jul, Height 64 3/4 in Jul, BMI 49.80 kg/m2 Jul, Heart Rate 98 /min Jul, Respiratory Rate 18 /min Jul, Temperature 96.8 degrees Fahrenheit Jul, Oximetry 97 05 Jul, 2020 Blood pressure systolic 138 mm Hg Jul, Blood pressure diastolic 78 mm Hg Jul, MEDICATIONS Medication SIG (Take, Route, Frequency, Duration) [...] tablet Orally Once a day Active Drisdol 25993 UNIT 1 capsule Orally Once a week [...] Information RESULTS No Results REASON FOR VISIT blood work?/follow up MEDICAL (GENERAL) HISTORY Type Description Date Medical [...] Jul, Left eye pain (ICD-10 - H57.12) I discussed the case with Dr. Becerra. We called vascular surgery to see if they could get her in sooner than 08/23. Per [facility] policy they do not do transcranial ultrasound which is what the patient would like to do so will refer her to rheumatology- also at this point she has been on steroids for >1 month so the temporal biopsy will likely be inconclusive, patient is aware of this. She has agreed to go to rheumatology for a follow up. She is going to continue the steroids until she is able to see rheumatology. We discussed the risks of stopping the steroids before seeing rheumatology including vision loss, etc. Jul, Anxiety (ICD-10 - F41.9) PLAN OF TREATMENT Medication Medication Name Sig Start Date Stop Date Famotidine 40 MG 1 tablet at bedtime Orally Once a day fo r 30 day(s) Aug, MetFORMIN HCl ER 500 MG 2 tablets with evening meal Orally Once a day for 30 day(s) Aug, PredniSONE 20 MG 2 tablet Orally Once a day for 30 Days Jun, Treatment Notes Assessment Notes Clinical Notes Left eye pain I discussed the case with Dr. Becerra. We called vascular surgery to see if they could get her in sooner than 08/23. Per [facility] policy they do not do transcranial ultrasound which is what the patient would like to do so will refer her to rheumatology- also at this point she has been on steroids for >1 month so the temporal biopsy will likely be inconclusive, patient is aware of this. She has agreed to go to rheumatology for a follow up. She is going to continue the steroids until she is able to see rheumatology. We discussed the risks of stopping the steroids before seeing rheumatology including vision loss, etc. Next Appt Details 4 Weeks Reason: Provider Name:Monasamantha Brooks, 2020-08-31 08:15:00 AM, [address] [place], [address], Provider Name:Bibi Benavides Francisco, 2020-09-28 10:00:00 AM, [address] [place] [address], [phone], Insurance Providers Payer Name Payer Address Payer Phone Insured Name Patient Relati onship to Insured Coverage Start Date Coverage End Date [facility] COMM[facility] [facility]AN [facility] [address] [facility] [phone] HENRRY ALARCON self 2015
--- OUTSIDE RECORDS SUMMARY | 2020-10-05 06:13 | CCD ---
Author Author [facility] Organization [facility] Address Unknown Phone Unavailable Care Team Providers Care Contract Officer Name Role Phone Crystal Singh Unavailable PROBLEMS Type Condition ICD9-CM Code IYP19-TS Code Onset Dates Condition S tatus SNOMED Code Notes Problem Vaginal candidiasis B37.3 Active 52649500 Problem Controlled type 2 diabetes m ellitus without complication, without long- term current use of insulin E11.9 Active 88255580 4 Problem Anemia, unspecified D64.9 Active 335605010 Problem Mixed hyperlipidemia E78.2 Active 483608042 Problem Vitamin D deficiency E55.9 Active 02802984 Problem Vitamin B12 deficiency E53.8 Active 118410718 Problem Primary osteoarthritis, right hand M19.041 Activ e 3805952234478597 Problem Hemorrhoid 455.6 Active 98431599 Problem Body mass index (BMI) 45.0-49.9, adult Z68.42 A ctive 998438213 Problem Obesity, morbid, BMI 40.0-49.9 E66.01 Active 2 90358998 Problem Osteoarthritis of multiple joints, unspecified o steoarthritis type M15.9 Active 767155750 Problem Chronic gout of multiple sites, unspecified cause M1A.09X0 Active 14449282 Problem Primary osteoarthritis of both knees M17.0 Act yair 227935455 Problem Internal derangement of right knee M23.91 Activ e 963307608128293 Problem Gastroesophageal reflux disease without esophagitis K21.9 Active 744151018 Problem Anxiety F41.9 Active 54819829 Problem Primary osteoarthritis of left hand M19.042 Acti ve 17654344 Problem Candidiasis of vulva and vagina 112.1 Active 61853293 Problem Irritable bowel syndrome with constipation K58.1 Active 959418191 Problem Hypothyroidism, unspecified type E03.9 Active 76294090 Problem Pain of hand, unspecified laterality M79.643 Act yair 84499150 Problem Digital mucous cyst of finger of right hand M67.44 1 Active 520407851 Problem Primary osteoarthritis involving multiple joints M 15.0 Active 370920240 ALLERGIES Allergen (clinical drug ingredient) Drug/Non Drug Allergy do cumented on EMR Reaction Allergy Type Onset Date Status codeine Codeine Sulfate([facility] Code:[address]-70) RASH/HIVES Drug Al lergy Active ENCOUNTERS from 1966 to 2020-08-26 Encounter [facility] Date [facility] [address] [place] [phone] Aug, Crystal Francisco IMMUNIZATIONS Vaccine Route Administration Date Status Influenza [...] Education Language: Question Answer Notes Languages spoken: Bangladeshi Adventist: Question Answer Notes Adventist 13 Sabianist Domestic Violence: Question Answer Notes Status: denies [...] tablet Orally Once a day Active Drisdol 07745 UNIT 1 capsule Orally Once a week [...] Information RESULTS No Results REASON FOR VISIT temporal artery biopsy MEDICAL (GENERAL) HISTORY Type Description Date Medical [...] No Information FUNCTIONAL STATUS No Information ASSESSMENTS No Information PLAN OF TREATMENT Medication Medication Name Sig [...] Provider Name:Mona Brooks, 2020-08-31 08:15:00 AM, [address] [place], [address], Provider Name:Bibi Singh, 2020-09-28 10:00:00 AM, [address] [place] [address], [phone], Insurance Providers Payer Name Payer Address Payer Phone Insured Name Patient Relati onship to Insured Coverage Start Date Coverage End Date [facility] [employer] [address] [facility] [phone] HENRRY ALARCON self 2016
--- OUTSIDE RECORDS SUMMARY | 2020-10-05 06:13 | CCD ---
Author Author [facility] Organization [facility] Address Unknown Phone Unavailable Care Team Providers Care Mouse Breeder Name Role Phone Mona Brooks Unavailable PROBLEMS Type Condition ICD9-CM Code GTW98-FD Code Onset Dates Condition S tatus SNOMED Code Notes Problem Hemorrhoid 455.6 Active 72555943 Problem Irritable bowel syndrome with constipation K58.1 Active 014998496 Problem Candidiasis of vulva and vagina 112.1 Active 82537173 Problem Osteoarthritis of multiple joints, unspecified o steoarthritis type M15.9 Active 688138315 Problem Obesity, morbid, BMI 40.0-49.9 E66.01 Active 2 28509276 Problem Body mass index (BMI) 45.0-49.9, adult Z68.42 A ctive 004928787 Problem Vitamin D deficiency E55.9 Active 23185733 Problem Vaginal candidiasis B37.3 Active 40095350 Problem Vitamin B12 deficiency E53.8 Active 700288153 Problem Primary osteoarthritis of left hand M19.042 Acti ve 53484735 Problem Gastroesophageal reflux disease without esophagitis K21.9 Active 346096997 Problem Internal derangement of right knee M23.91 Activ e 386461778555575 Problem Primary osteoarthritis, right hand M19.041 Activ e 8508194878932144 Problem Chronic gout of multiple sites, unspecified cause M1A.09X0 Active 44448025 Problem Hypothyroidism, unspecified type E03.9 Active 71145334 Problem Pain of hand, unspecified laterality M79.643 Act yair 93341331 Problem Left eye pain H57.12 Active 751681221388102 Problem Mixed hyperlipidemia E78.2 Active 909432054 Problem Elevated C-reactive protein (CRP) R79.82 Active 849127018534738 Problem Controlled type 2 diabetes m ellitus without complication, without long- term current use of insulin E11.9 Active 10587033 4 Problem Anemia, unspecified D64.9 Active 206457308 Problem Digital mucous cyst of finger of right hand M67.44 1 Active 091230884 Problem Primary osteoarthritis involving multiple joints M 15.0 Active 990138647 Problem Primary osteoarthritis of both knees M17.0 Act yair 682578631 Problem Anxiety F41.9 Active 31611337 ALLERGIES Allergen (clinical drug ingredient) Drug/Non Drug Allergy do cumented on EMR Reaction Allergy Type Onset Date Status codeine Codeine Sulfate([facility] Code:[address]-49) RASH/HIVES Drug Al lergy Active ENCOUNTERS from 1966 to 2020-09-11 Encounter Location Date Provider Diagnosis [facility] Rheumatology [address] [place] [address] Aug, [facility] Left eye pain H57.12 ; Sinus pain J34.89 ; Elevated C-reactive protein (CRP) R79.82 and Elevated erythrocyte sedimentation rate R70.0 IMMUNIZATIONS Vaccine Route Administration Date Status Influenza [...] Education Language: Question Answer Notes Languages spoken: Greek Hinduism: Question Answer Notes Hinduism 13 Yazidism Domestic Violence: Question Answer Notes Status: denies [...] FOR REFERRAL No Information VITAL SIGNS Weight 304.6 lbs Aug, Weight-kg 138.1 kg Aug, Height 64 3/4 in Aug, BMI 51.07 kg/m2 Aug, Heart Rate 88 /min Aug, Respiratory Rate 18 /min Aug, Temperature 96.3 degrees Fahrenheit Aug, Oximetry 96 Aug, Blood pressure systolic 130 mm Hg Aug, Blood pressure diastolic 84 mm Hg Aug, MEDICATIONS Medication SIG (Take, Route, Frequency, Duration) Notes Start Da te End Date Status MetFORMIN HCl ER 500 MG 2 tablets with evening meal Orally Once a day for 30 day(s) Aug, Active Blood Glucose System Edis - as directed intradermally twice d aily for 30 day(s) Feb, Active Famotidine 40 MG 1 tablet at bedtime Orally Once a day for 30 da y(s) Aug, Active Cyclobenzaprine HCl Not-T aking Blood Glucose Test - as directed In Vitro twice daily for 30 day (s) Feb, Active Prevacid 30 MG 1 capsule Orally Twice a day for 90 day(s) Active Ibuprofen 800 MG 1 tablet with food or milk a s needed Orally Three times a day for 30 day(s) Jun, Not-Taking Levothyroxine Sodium Not- Taking PredniSONE 5 MG 3 tablet Orally Once a day for 30 day(s) 1 Aug, Active Lidocaine 5 % 1 application to affected ar ea as needed Externally Three times a day as needed for 30 day(s) Feb, Acti ve ProAir HFA 108 (90 Base) MCG/ACT 2 puffs as needed Inh alation every 6 hrs for 10 day(s) Dec, Active Drisdol 87222 UNIT 1 capsule Orally Once a week for 90 day(s) Nov, Active Aspirin EC 81 MG 1 tablet Orally Once a day Active Synthroid 50 MCG 1 tablet on an empty stomach in the morning Orally Once a day for 90 day(s) Sep, Active Vitamin B-12 1000 MCG as directed IM as needed monthly for 30 days Active PredniSONE 20 MG 2 tablet Orally Once a day for 30 Days Jun, Active HydrOXYzine HCl Not-Takin g Lansoprazole Not-Taking HydrOXYzine HCl 25 MG 1-2 tablets as needed Orally before bed fo r 30 day(s) Jul, Active Januvia 100 MG 1 tablet Orally Once a day for 90 day(s) Dec, Not-Taking PROCEDURES No Information RESULTS Component Value Reference Range CBC with Differential Reviewed date:09/06/2020 12:02:10 Interpretation: Performing Lab:[facility] [address] [facility] [address] , ,[place] [address] WHITE BLOOD COUNT 13.6 4.0-10.0 RED BLOOD COUNT 5.61 4.00-5.40 HEMOGLOBIN 14.9 12.0-15.5 HEMATOCRIT 48.5 36.0-47.0 MEAN CORPUSCULAR VOLUME 86.5 80.0-96.0 MEAN CORPUSCULAR HEMOGLOBIN 26.6 27.0-33.0 MEAN CORPUSCULAR HGB CONC 30.7 32.0-36.5 RED CELL DISTRIBUTION WIDTH 14.9 11.5-14.5 PLATELET COUNT, AUTOMATED 349 150-450 NEUTROPHILS % 62.5 36.0-66.0 LYMPH % 28.4 24.0-44.0 MONO % 7.3 0.0-5.0 EOS % 0.0 0.0-3.0 BASO % 0.4 0.0-1.0 NEUTROPHILS # 8.5 1.5-8.5 LYMPH # 3.9 1.5-5.0 MONO # 1.0 0.0-0.8 EOS # 0.0 0.0-0.5 BASO # 0.1 0.0-0.2 C REACTIVE PROTEIN QUANTITATIV (At [facility]) Reviewed date:09/06/2020 12:23:22 Interpretation: Performing Lab:[facility] [address] [facility] [address] , ,[place] [address] C REACTIVE PROTEIN QUANTITATIV 1.57 0.00-0.30 ERYTHROCYTE SEDIMENTATION RATE Reviewed date:09/06/2020 12:00:43 Interpretation: Performing Lab:[facility] [address] [facility] [address] , ,[place] [address] ERYTHROCYTE SEDIMENTATION RATE 9 0-30 PLZ SINUSES COMPLETE Reviewed date:09/06/2020 12:00:43 Interpretation:Normal examination. Performing Lab:[facility],[address]], ,[place] [address] REASON FOR VISIT Patient is present today for a new patient appointment, c/o left side temporal p ain patient states that she has gained weight while on Prednison medication. C/o bilateral knee pain MEDICAL (GENERAL) HISTORY Type Description Date Medical History Diabetes type ll ( Dx 2013) Medical History Hyperlipidemia Medical History Sciatica (Right leg) Medical History Esophageal Reflux Medical History Constipation / IBS Medical History Abnormal pap smear (2000) Medical History Anemia Medical History Vitamin B12 deficiency Medical History Hypothyroidism Medical History Candidal Intertrigo Medical History Vitamin D Deficiency Surgical History Carpal tunnel release (Bilateral) 2003 Surgical History D&C x2 Surgical History Laparoscopy 1987 Surgical History Tubal Ligation 1993 Surgical History Colposcopy 2000 Surgical History Miscal tear repear right knee 2017 Hospitalization History Surgical related Goals Section No Information Health Concerns No Information MEDICAL EQUIPMENT No Information MENTAL STATUS No Information FUNCTIONAL STATUS No Information ASSESSMENTS Encounter Date Diagnosis Assessment Notes Treatment Notes Treatm ent Clinical Notes Aug, Left eye pain (ICD-10 - H57.12) Given the symptomatology, will perform further investigation to verify the underlying etiology of the left eye pain. Based on the clinical presentation, low clinical suspicion for Temporal Arteritis. There are risk factors present including elevated age (> 50 years old), increased CRP (however, history of chronic elevated CRP), and elevated ESR. However, the symptomatology is not consistent with constitutional systems, temporal headaches, visual changes, tongue abnormalities (right side prominently), jaw claudication, or significant improvement in the symptoms on treatment (Prednisone therapy). Agree with the temporal biopsy; though she has been on the prednisone for months, the temporal biopsy will provide additional information. Currently, she's on Prednisone 40 mg daily and experiencing adverse side effects (face changes, weight gain, increased appetite, jitteriness, mood changes). During the investigation, will taper off the Prednisone from 40 mg daily to 35 mg daily. Will monitor the symptomatology closely. Aug, Sinus pain (ICD-10 - J34.89) The clinical presentation is concerning for an underlying sinus disease. The patient has frontal and maxillary sinus tenderness on physical examination, facial pain, ear pressure and fullness. - Will obtain sinus x-rays for underlying structural abnormalities and given the severity of the symptoms and will consider a CT sinus w/out contrast for further investigation, based on the sinus x-rays. Aug, Elevated C-reactive protein (CRP) (ICD-10 - R79. 82) Previous CRP records reveal a chronically elevated CRP; will monitor the CRP level on prednisone therapy. Expect improvement in the CRP with the prednisone therapy. Aug, Elevated erythrocyte sedimentation rate (ICD-10 - R70.0) The ESR is a nonspecific inflammatory marker; it should be noted that ESR can be associated with multiple etiologies including infectious disease, female gender, patients with an older age, patients with anemia, and obesity. Aug, Other - More than 50% of the 66 minute visit was spent in patient education, counseling, and coordination of care. PLAN OF TREATMENT Medication Medication Name Sig Start Date Stop Date PredniSONE 5 MG 3 tablet Orally Once a day for 30 day(s) Aug, Treatment Notes Assessment Notes Clinical Notes Left eye pain Given the symptomato logy, will perform further investigation to verify the underlying etiology of the left eye pain. Based on the clinical presentation, low clinical suspicion for Temporal Arteritis. There are risk factors present including elevated age (> 50 years old), increased CRP (however, history of chronic elevated CRP), and elevated ESR. However, the symptomatology is not consistent with constitutional systems, temporal headaches, visual changes, tongue abnormalities (right side prominently), jaw claudication, or significant improvement in the symptoms on treatment (Prednisone therapy). Agree with the temporal biopsy; though she has been on the prednisone for months, the temporal biopsy will provide additional information. Currently, she's on Prednisone 40 mg daily and experiencing adverse side effects (face changes, weight gain, increased appetite, jitteriness, mood changes). During the investigation, will taper off the Prednisone from 40 mg daily to 35 mg daily. Will monitor the symptomatology closely. Sinus pain The clinical present ation is concerning for an underlying sinus disease. The patient has frontal and maxillary sinus tenderness on physical examination, facial pain, ear pressure and fullness.- Will obtain sinus x-rays for underlying structural abnormalities and given the severity of the symptoms and will consider a CT sinus w/out contrast for further investigation, based on the sinus x-rays. Elevated C-reactive protein (CRP) Previo us CRP records reveal a chronically elevated CRP; will monitor the CRP level on prednisone therapy. Expect improvement in the CRP with the prednisone therapy. Elevated erythrocyte sedimentation rate The ESR is a nonspecific inflammatory marker; it should be noted that ESR can be associated with multiple etiologies including infectious disease, female gender, patients with an older age, patients with anemia, and obesity. Next Appt Details 6 Weeks Reason:Left Eye Pain, Sinus Pain Provider Name:Bibi Singh, 2020-09-28 10:00:00 AM, [address] [place], [address], Provider Name:Mona Brooks, 2020-10-12 12:15:00 AM, [address] [place], [address], Follow Up:6 WeeksLeft Eye Pain, Sinus Pain Insurance Providers Payer Name Payer Address Payer Phone Insured Name Patient Relati onship to Insured Coverage Start Date Coverage End Date [facility] [employer] [facility] [address] [facility] [phone] HENRRY ALARCON self 2016
--- OUTSIDE RECORDS SUMMARY | 2020-10-05 06:13 | CCD ---
Author Author [facility] Organization [facility] Address Unknown Phone Unavailable Care Team Providers Care Steel Rod Buster Name Role Phone Crystal Singh Unavailable PROBLEMS Type Condition ICD9-CM Code MGA03-AL Code Onset Dates Condition S tatus SNOMED Code Notes Problem Vaginal candidiasis B37.3 Active 11776588 Problem Controlled type 2 diabetes m ellitus without complication, without long- term current use of insulin E11.9 Active 96090675 4 Problem Anemia, unspecified D64.9 Active 567438401 Problem Mixed hyperlipidemia E78.2 Active 254101299 Problem Vitamin D deficiency E55.9 Active 75937165 Problem Vitamin B12 deficiency E53.8 Active 217722295 Problem Primary osteoarthritis, right hand M19.041 Activ e 0191372960290209 Problem Hemorrhoid 455.6 Active 66070154 Problem Body mass index (BMI) 45.0-49.9, adult Z68.42 A ctive 977320148 Problem Obesity, morbid, BMI 40.0-49.9 E66.01 Active 2 48296165 Problem Osteoarthritis of multiple joints, unspecified o steoarthritis type M15.9 Active 079377219 Problem Chronic gout of multiple sites, unspecified cause M1A.09X0 Active 82205099 Problem Primary osteoarthritis of both knees M17.0 Act yair 295751977 Problem Internal derangement of right knee M23.91 Activ e 729151526238641 Problem Gastroesophageal reflux disease without esophagitis K21.9 Active 339281191 Problem Anxiety F41.9 Active 02928116 Problem Primary osteoarthritis of left hand M19.042 Acti ve 92848712 Problem Candidiasis of vulva and vagina 112.1 Active 37382725 Problem Irritable bowel syndrome with constipation K58.1 Active 249611773 Problem Hypothyroidism, unspecified type E03.9 Active 13854310 Problem Pain of hand, unspecified laterality M79.643 Act yair 78078439 Problem Digital mucous cyst of finger of right hand M67.44 1 Active 824857625 Problem Primary osteoarthritis involving multiple joints M 15.0 Active 002130559 ALLERGIES Allergen (clinical drug ingredient) Drug/Non Drug Allergy do cumented on EMR Reaction Allergy Type Onset Date Status codeine Codeine Sulfate([facility] Code:[address]-13) RASH/HIVES Drug Al lergy Active ENCOUNTERS from 1966 to 2020-07-31 Encounter Location Date Provider Diagnosis [address] [address] 16 Jul, 2020 Crystal Francisco Left eye pain [...] Education Language: Question Answer Notes Languages spoken: Divehi Baptism: Question Answer Notes Baptism 13 Buddhism Domestic Violence: Question Answer Notes Status: denies [...] Notes Start Da te End Date Status Cyclobenzaprine HCl Not-T aking Synthroid 50 MCG 1 tablet on an empty stomach in the morning Orally Once a day for 90 day(s) Sep, Active Levothyroxine Sodium Not- Taking Drisdol 96776 UNIT 1 capsule Orally Once a week for 90 day(s) Nov, Active ProAir HFA 108 (90 Base) MCG/ACT 2 puffs as needed Inh alation every 6 hrs for 10 day(s) Dec, Active Vitamin B-12 1000 MCG as directed IM as needed monthly for 30 days Active Flexeril 10 mg 30 10 mg one tablet orally before bedtime for 30 days Dec, Active Ibuprofen 800 MG 1 tablet with food or milk a s needed Orally Three times a day for 30 day(s) Jun, Active PredniSONE 20 MG 2 tablet Orally Once a day for 21 day(s) Jun, Active Blood Glucose System Edis - as directed intradermally twice d aily for 30 day(s) Feb, Active Blood Glucose Test - as directed In Vitro twice daily for 30 day (s) Feb, Active Lidocaine 5 % 1 application to affected ar ea as needed Externally Three times a day as needed for 30 day(s) Feb, Acti ve Lansoprazole Not-Taking Prevacid 30 MG 1 capsule Orally Twice a day for 90 day(s) Active Januvia 100 MG 1 tablet Orally Once a day for 90 day(s) Dec, Active HydrOXYzine HCl 25 MG 1-2 tablets as needed Orally before bed fo r 30 day(s) Jul, Active Aspirin EC 81 MG 1 tablet Orally Once a day Active HydrOXYzine HCl Active PROCEDURES No Information RESULTS No Results REASON FOR VISIT prednisone MEDICAL (GENERAL) HISTORY Type Description Date Medical History type II diabetes, new 2013. Medical History hyperlipidemia Medical History sciatica/RIGHT LEG Medical History Esophageal reflux Medical History constipation/IBS Medical History abnormal pap smear/2000 Medical History anemia Medical History vitamin B12 deficiency Medical History thyroid issues- hypothyroid Medical History Candidal intertrigo Medical History Vitamin D Deficiency Surgical History carpal tunnel release/KATHY. 2004 Surgical History D&C, X 2 Surgical History laparoscopy 1987 Surgical History tubal ligation 1993 Surgical History COLPOSCOPY 2000 Surgical History Miscal tear repear right knee 2017 Goals Section No Information Health Concerns No Information MEDICAL EQUIPMENT No Information MENTAL STATUS No Information FUNCTIONAL STATUS No Information ASSESSMENTS Encounter Date Diagnosis Assessment Notes Treatment Notes Treatm ent Clinical Notes 16 Nov, 2020 Left eye pain (ICD-10 - H57.12) PLAN OF TREATMENT Medication Medication Name Sig Start Date Stop Date PredniSONE 20 MG 2 tablet Orally Once a day for 21 day(s) Jun HydrOXYzine HCl 25 MG 1-2 tablets as needed Orally before be d for 30 day(s) Jul, Next Appt Details Provider Name:Crystal Singh 2020-08-21 02 :00:00 PM, [address] [place] [address], [phone], Insurance Providers Payer Name Payer Address Payer Phone Insured Name Patient Relati onship to Insured Coverage Start Date Coverage End Date [facility] [employer]AN [facility] [address] [facility] [phone] HENRRY ALARCON self 2016
--- OUTSIDE RECORDS SUMMARY | 2020-10-05 06:13 | CCD ---
Author Author [facility] Organization [facility] Address Unknown Phone Unavailable Care Team Providers Care Family Services Coordinator Name Role Phone Crystal Singh Unavailable PROBLEMS Type Condition ICD9-CM Code OEW18-OF Code Onset Dates Condition S tatus SNOMED Code Notes Problem Hemorrhoid 455.6 Active 54730766 Problem Irritable bowel syndrome with constipation K58.1 Active 905583130 Problem Candidiasis of vulva and vagina 112.1 Active 78280906 Problem Osteoarthritis of multiple joints, unspecified o steoarthritis type M15.9 Active 856679350 Problem Obesity, morbid, BMI 40.0-49.9 E66.01 Active 2 48947062 Problem Body mass index (BMI) 45.0-49.9, adult Z68.42 A ctive 057314735 Problem Vitamin D deficiency E55.9 Active 22623126 Problem Vaginal candidiasis B37.3 Active 20987717 Problem Vitamin B12 deficiency E53.8 Active 456864377 Problem Primary osteoarthritis of left hand M19.042 Acti ve 15636979 Problem Gastroesophageal reflux disease without esophagitis K21.9 Active 426856024 Problem Internal derangement of right knee M23.91 Activ e 746202136561240 Problem Primary osteoarthritis, right hand M19.041 Activ e 7807700596834539 Problem Chronic gout of multiple sites, unspecified cause M1A.09X0 Active 05250812 Problem Hypothyroidism, unspecified type E03.9 Active 51894864 Problem Pain of hand, unspecified laterality M79.643 Act yair 11749063 Problem Left eye pain H57.12 Active 150417727368256 Problem Mixed hyperlipidemia E78.2 Active 685874711 Problem Elevated C-reactive protein (CRP) R79.82 Active 406325375388905 Problem Controlled type 2 diabetes m ellitus without complication, without long- term current use of insulin E11.9 Active 66378770 4 Problem Anemia, unspecified D64.9 Active 490893608 Problem Digital mucous cyst of finger of right hand M67.44 1 Active 592563354 Problem Primary osteoarthritis involving multiple joints M 15.0 Active 743518224 Problem Primary osteoarthritis of both knees M17.0 Act yair 857583821 Problem Anxiety F41.9 Active 98196257 ALLERGIES Allergen (clinical drug ingredient) Drug/Non Drug Allergy do cumented on EMR Reaction Allergy Type Onset Date Status codeine Codeine Sulfate([facility] Code:[address]-75) RASH/HIVES Drug Al lergy Active ENCOUNTERS from 1966 to 2020-09-23 Encounter Location Date Provider Diagnosis [address] [address] Aug, Crystal Francisco Fluttering sensation of heart R00.2 ; Co ntrolled type 2 diabetes mellitus without complication, without long-term current use of insulin E11.9 ; Left eye pain H57.12 ; Mixed hyperlipidemia E78.2 ; Gastroesophageal reflux disease without esophagitis K21.9 and Hypothyroidism, unspecified type E03.9 IMMUNIZATIONS Vaccine Route Administration Date Status Influenza [...] Education Language: Question Answer Notes Languages spoken: Bulgarian Restorationist: Question Answer Notes Restorationist 13 Christian Domestic Violence: Question Answer Notes Status: denies [...] FOR REFERRAL No Information VITAL SIGNS Weight 303 lbs Aug, Height 64 3/4 in Aug, BMI 50.81 kg/m2 Aug, Heart Rate 103 /min Aug, Respiratory Rate 18 /min Aug, Temperature 96.6 degrees Fahrenheit Aug, Oximetry 97 Aug, Blood pressure systolic 150 mm Hg Aug, Blood pressure diastolic 82 mm Hg Aug, MEDICATIONS Medication SIG (Take, [...] hrs for 10 day(s) Dec, Active Drisdol 09419 UNIT 1 capsule Orally Once a week [...] day for 90 day(s) Dec, Not-Taking PROCEDURES from 1966 to 2020-09-23 Procedure Date Ordered Result Body Site ELECTROCARDIOGRAM, COMPLETE EKG 2020-08-21 N/A RESULTS Component Value Reference Range HEMOGLOBIN A1c Reviewed date:08/31/2020 14:54:58 Interpretation: Performing Lab:[facility] hospital LABORATORY [address] [facility] [address] , [place] [address] HEMOGLOBIN A1c 7.0 ESTIMATED AVERAGE GLUCOSE 154 60-110 Basic Metabolic Profile (BMP) Reviewed date:08/31/2020 14:54:58 Interpretation: Performing Lab:Critical access hospital LABORATORY [address] [facility] [address] , ,[place] [address] GLUCOSE, FASTING 140 70-100 BLOOD UREA NITROGEN 20 7-18 CREATININE FOR GFR 1.04 0.55-1.30 GLOMERULAR FILTRATION RATE 58.8 >51 SODIUM LEVEL 139 136-145 POTASSIUM SERUM 4.8 3.5-5.1 CHLORIDE LEVEL 103 98-107 CARBON DIOXIDE LEVEL 30 21-32 CALCIUM LEVEL 8.5 8.5-10.1 REASON FOR VISIT 6 month follow up MEDICAL (GENERAL) HISTORY Type Description Date [...] Treatment Notes Treatm ent Clinical Notes Aug, Fluttering sensation of heart (ICD-10 - R00.2) some T wave flattening noted in V2-V4, will check BMP today for any electrolyte abnormalities, however when compared with her previous EKG done in 2011 these were minimal changes and are likely nonspecific Aug, Controlled type 2 diabetes tiffany kaur without complication, without long-term current use of insulin (ICD-10 - E11.9) will have patient check her a1c today since she has been on the prednisone for about 3 months and her sugars have been all over the place. will add Metformin ER 500mg BID to help control patients sugars Aug, Left eye pain (ICD-10 - H57.12) will continue prednisone until patient's temporal artery biopsy. patient is also going to see rheumatology for a workup as well, if the temporal artery biopsy is negative she will be ready to see them as we discussed at her previous appointment Aug, Mixed hyperlipidemia (ICD-10 - E78.2) based upon updated AHA/ACC cholesterol guidelines 2013, pt's LDL is reduced by current statin tx by sufficient percentage based on 10 year ASCVD risk stratification; no adjustments in statin tx needed Aug, Gastroesophageal reflux dise ase without esophagitis (ICD-10 - K21.9) patient is having breakthrough reflux will sedn famotidine for her to use as needed at night time Aug, Hypothyroidism, unspecified type (ICD-10 - E03.9 ) controlled PLAN OF TREATMENT Medication Medication Name Sig Start Date Stop Date PredniSONE 5 MG 3 tablet Orally Once a day for 30 day(s) Aug, Treatment Notes Assessment Notes Clinical Notes Fluttering sensation of heart some T wav e flattening noted in V2-V4, will check BMP today for any electrolyte abnormalities, however when compared with her previous EKG done in 2011 these were minimal changes and are likely nonsp ecific Controlled type 2 diabetes mellitus with out complication, without long-term current use of insulin will have patient check her a1c today since she has been on the prednisone for about 3 months and her sugars have been all over the place. will add Metformin ER 500mg BID to help control patients sugars Left eye pain will continue predni sone until patient's temporal artery biopsy. patient is also going to see rheumatology for a workup as well, if the temporal artery biopsy is negative she will be ready to see them as we discussed at her previous appointment Mixed hyperlipidemia based upon updated AHA/ACC cholesterol guidelines 2013, pt's LDL is reduced by current statin tx by sufficient percentage based on 10 year ASCVD risk stratification; no adjustments in statin tx needed Gastroesophageal reflux disease without esophagitis patient is having breakthrough reflux will sedn famotidine for her to use as needed at night time Hypothyroidism, unspecified type control led Next Appt Details 6 Weeks Reason: Provider Name:Bibi Singh, 2020-09-28 10:00:00 AM, [address] [place], [address], Provider Name:Monasamantha Brooks, 2020-10-12 12:15:00 AM, [address] [place], [address], Insurance Providers Payer Name Payer Address Payer Phone Insured Name Patient Relati onship to Insured Coverage Start Date Coverage End Date [facility] PLAN [facility] [address] [facility] [address] HENRRY ALARCON self 2016
--- OUTSIDE RECORDS SUMMARY | 2020-10-05 06:13 | CCD ---
Author Author [facility] Organization [facility] Address Unknown Phone Unavailable Care Team Providers Care Retail Cashier Associate Name Role Phone Mona Brooks Unavailable PROBLEMS Type Condition ICD9-CM Code EDX99-PY Code Onset Dates Condition S tatus SNOMED Code Notes Problem Hemorrhoid 455.6 Active 79314703 Problem Irritable bowel syndrome with constipation K58.1 Active 695577141 Problem Candidiasis of vulva and vagina 112.1 Active 74120662 Problem Osteoarthritis of multiple joints, unspecified o steoarthritis type M15.9 Active 658962651 Problem Obesity, morbid, BMI 40.0-49.9 E66.01 Active 2 74742746 Problem Body mass index (BMI) 45.0-49.9, adult Z68.42 A ctive 990721378 Problem Vitamin D deficiency E55.9 Active 02455065 Problem Vaginal candidiasis B37.3 Active 35916700 Problem Vitamin B12 deficiency E53.8 Active 867338920 Problem Primary osteoarthritis of left hand M19.042 Acti ve 89170683 Problem Gastroesophageal reflux disease without esophagitis K21.9 Active 234268343 Problem Internal derangement of right knee M23.91 Activ e 147133426938149 Problem Primary osteoarthritis, right hand M19.041 Activ e 7682783534173672 Problem Chronic gout of multiple sites, unspecified cause M1A.09X0 Active 35409486 Problem Hypothyroidism, unspecified type E03.9 Active 07459134 Problem Pain of hand, unspecified laterality M79.643 Act yair 72835502 Problem Left eye pain H57.12 Active 889633566074114 Problem Mixed hyperlipidemia E78.2 Active 527946676 Problem Elevated C-reactive protein (CRP) R79.82 Active 937156509085758 Problem Controlled type 2 diabetes m ellitus without complication, without long- term current use of insulin E11.9 Active 68510928 4 Problem Anemia, unspecified D64.9 Active 935941353 Problem Digital mucous cyst of finger of right hand M67.44 1 Active 600875530 Problem Primary osteoarthritis involving multiple joints M 15.0 Active 421546225 Problem Primary osteoarthritis of both knees M17.0 Act yair 550973953 Problem Anxiety F41.9 Active 80786118 ALLERGIES Allergen (clinical drug ingredient) Drug/Non Drug Allergy do cumented on EMR Reaction Allergy Type Onset Date Status codeine Codeine Sulfate([facility] Code:[address]-37) RASH/HIVES Drug Al lergy Active ENCOUNTERS from 1966 to 2020-09-11 Encounter Location Date Provider Diagnosis [facility] Rheumatology [address] [place] [address] Aug, Mona Brooks Sinus pain J34.89 IMMUNIZATIONS Vaccine Route Administration Date Status Influenza [...] Education Language: Question Answer Notes Languages spoken: Turkish Shinto: Question Answer Notes Shinto 13 Roman Catholic Domestic Violence: Question Answer Notes Status: denies [...] hrs for 10 day(s) Dec, Active Drisdol 65258 UNIT 1 capsule Orally Once a week [...] day(s) Dec, Not-Taking PROCEDURES No Information RESULTS No Results REASON FOR VISIT CT Sinus MEDICAL (GENERAL) HISTORY Type Description Date Medical [...] Treatment Notes Treatm ent Clinical Notes Aug, Sinus pain (ICD-10 - J34.89) PLAN OF TREATMENT Medication Medication Name Sig Start Date Stop Date PredniSONE 5 MG 3 tablet Orally Once a day for 30 day(s) Aug, Treatment Notes Test Name Order Date [facility] BRAIN LAB SINUSES 2020-09-11 Next Appt Details Provider Name:Bibi Singh, 2020-09-28 10:00:00 AM, [address] [place], [address], Provider Name:Mona Brooks, 2020-10-12 12:15:00 AM, [address] [place], [address], Insurance Providers Payer Name Payer Address Payer Phone Insured Name Patient Relati onship to Insured Coverage Start Date Coverage End Date [facility] COMMUNITY PLAN [facility] [address] [facility] [address] HENRRY ALARCON 2016
--- OUTSIDE RECORDS SUMMARY | 2020-10-05 06:13 | CCD ---
Author Author [facility] Organization [facility] Address Unknown Phone Unavailable Care Team Providers Care Axminster Rug Setter Name Role Phone Crystal Singh Unavailable PROBLEMS Type Condition ICD9-CM Code SUH32-HT Code Onset Dates Condition S tatus SNOMED Code Notes Problem Vaginal candidiasis B37.3 Active 31141513 Problem Controlled type 2 diabetes m ellitus without complication, without long- term current use of insulin E11.9 Active 64922810 4 Problem Anemia, unspecified D64.9 Active 843844505 Problem Mixed hyperlipidemia E78.2 Active 472139050 Problem Vitamin D deficiency E55.9 Active 73302427 Problem Vitamin B12 deficiency E53.8 Active 061298390 Problem Primary osteoarthritis, right hand M19.041 Activ e 6614588868356627 Problem Hemorrhoid 455.6 Active 75469800 Problem Body mass index (BMI) 45.0-49.9, adult Z68.42 A ctive 761589514 Problem Obesity, morbid, BMI 40.0-49.9 E66.01 Active 2 52499435 Problem Osteoarthritis of multiple joints, unspecified o steoarthritis type M15.9 Active 795766639 Problem Chronic gout of multiple sites, unspecified cause M1A.09X0 Active 41787827 Problem Primary osteoarthritis of both knees M17.0 Act yair 157778707 Problem Internal derangement of right knee M23.91 Activ e 448417780028570 Problem Gastroesophageal reflux disease without esophagitis K21.9 Active 101118941 Problem Anxiety F41.9 Active 34835067 Problem Primary osteoarthritis of left hand M19.042 Acti ve 70812110 Problem Candidiasis of vulva and vagina 112.1 Active 94279765 Problem Irritable bowel syndrome with constipation K58.1 Active 926800218 Problem Hypothyroidism, unspecified type E03.9 Active 94588214 Problem Pain of hand, unspecified laterality M79.643 Act yair 13607126 Problem Digital mucous cyst of finger of right hand M67.44 1 Active 977234737 Problem Primary osteoarthritis involving multiple joints M 15.0 Active 776636651 ALLERGIES Allergen (clinical drug ingredient) Drug/Non Drug Allergy do cumented on EMR Reaction Allergy Type Onset Date Status codeine Codeine Sulfate([facility] Code:[address]-52) RASH/HIVES Drug Al lergy Active ENCOUNTERS from 1966 to 2020-08-01 Encounter Location Date Provider Diagnosis [address] [place] [address] 16 Jul, 2020 Crystal Francisco Left eye [...] Education Language: Question Answer Notes Languages spoken: Mongolian Pentecostal: Question Answer Notes Pentecostal 13 Episcopal Domestic Violence: Question Answer Notes Status: denies [...] Sep, Active Levothyroxine Sodium Not- Taking Drisdol 10869 UNIT 1 capsule Orally Once a week [...] Information RESULTS No Results REASON FOR VISIT refill PredniSONE 20 MG Tablet - out of meds MEDICAL (GENERAL) HISTORY Type Description Date Medical History type II diabetes, new 2013. Medical History hyperlipidemia Medical History sciatica/RIGHT LEG Medical History Esophageal reflux Medical History constipation/IBS Medical History abnormal pap smear/2001 Medical History anemia Medical History vitamin B12 [...] day(s) Jul, Next Appt Details Provider Name:Crystal Singh, 2020-08-21 02 :00:00 PM, [address] [place], [address], Insurance Providers Payer Name Payer Address Payer Phone Insured Name Patient Relati onship to Insured Coverage Start Date Coverage End Date [facility] COMMUN[facility] PLAN [facility] [address] [facility] [phone] HENRRY ALARCON self 2016
--- OUTSIDE RECORDS SUMMARY | 2020-10-05 06:14 | CCD ---
Author Author [facility] Organization [facility] Address Unknown Phone Unavailable Care Team Providers Care Transfer And Line Up Worker Name Role Phone Crystal Singh Unavailable PROBLEMS Type Condition ICD9-CM Code NGC29-EG Code Onset Dates Condition S tatus SNOMED Code Notes Problem Vaginal candidiasis B37.3 Active 94262273 Problem Controlled type 2 diabetes m ellitus without complication, without long- term current use of insulin E11.9 Active 88686930 4 Problem Anemia, unspecified D64.9 Active 981521935 Problem Mixed hyperlipidemia E78.2 Active 439972495 Problem Vitamin D deficiency E55.9 Active 38126705 Problem Vitamin B12 deficiency E53.8 Active 457727692 Problem Primary osteoarthritis, right hand M19.041 Activ e 9138350917663781 Problem Hemorrhoid 455.6 Active 12275576 Problem Body mass index (BMI) 45.0-49.9, adult Z68.42 A ctive 225165431 Problem Obesity, morbid, BMI 40.0-49.9 E66.01 Active 2 52022409 Problem Osteoarthritis of multiple joints, unspecified o steoarthritis type M15.9 Active 692243266 Problem Chronic gout of multiple sites, unspecified cause M1A.09X0 Active 71416761 Problem Primary osteoarthritis of both knees M17.0 Act yair 789686089 Problem Internal derangement of right knee M23.91 Activ e 753809643535533 Problem Gastroesophageal reflux disease without esophagitis K21.9 Active 781741383 Problem Anxiety F41.9 Active 86284476 Problem Primary osteoarthritis of left hand M19.042 Acti ve 43543691 Problem Candidiasis of vulva and vagina 112.1 Active 52547578 Problem Irritable bowel syndrome with constipation K58.1 Active 464840164 Problem Hypothyroidism, unspecified type E03.9 Active 26849218 Problem Pain of hand, unspecified laterality M79.643 Act yair 78305264 Problem Digital mucous cyst of finger of right hand M67.44 1 Active 579616626 Problem Primary osteoarthritis involving multiple joints M 15.0 Active 681262648 ALLERGIES Allergen (clinical drug ingredient) Drug/Non Drug Allergy do cumented on EMR Reaction Allergy Type Onset Date Status codeine Codeine Sulfate([facility] Code:[address]-94) RASH/HIVES Drug Al lergy Active ENCOUNTERS from 1966 to 2020-07-20 Encounter [facility] Date [facility] [address] [place] [id number] 28 Jun, 2020 Crystal Francisco IMMUNIZATIONS Vaccine Route Administration Date [...] Education Language: Question Answer Notes Languages spoken: Marshallese Anabaptist: Question Answer Notes Anabaptist 13 Confucianism Domestic Violence: Question Answer Notes Status: denies [...] MEDICATIONS Medication SIG (Take, Route, Frequency, Duration) Start Date En d Date Status Cyclobenzaprine HCl Not-Taki ng Synthroid 50 MCG 1 tablet on an empty stomach in the morning Orally Once a day for 90 day(s) Sep, Active Levothyroxine Sodium Not-Prem ing Drisdol 67708 UNIT 1 capsule Orally Once a week for 90 day(s) 2016 Active ProAir HFA 108 (90 Base) MCG/ACT [...] a day for 30 day(s) Jun, Active HydrOXYzine HCl 25 MG 1-2 tablets as needed Orally before be d for 30 day(s) Jul, Active Blood Glucose System Edis - as directed intradermally twice d aily for 30 day(s) Feb, Active Blood Glucose Test - as directed In Vitro twice daily for 30 day(s) Feb, Active Lidocaine 5 % 1 application to affected ar ea as needed Externally Three times a day as needed for 30 day(s) Feb, Active Lansoprazole Not-Taking Prevacid 30 MG 1 capsule Orally Twice a day for 90 day(s) Active Januvia 100 MG 1 tablet Orally Once a day for 90 day(s) Dec, 8 Active PredniSONE 20 MG 2 tablet Orally Once a day for 7 day(s) Jun, 20 Active Aspirin EC 81 MG 1 tablet Orally Once a day Active HydrOXYzine HCl Active PROCEDURES No Information RESULTS No Results REASON FOR VISIT Predinsone, jesús MEDICAL (GENERAL) HISTORY Type Description Date Medical [...] Medication Name Sig Start Date Stop Date HydrOXYzine HCl 25 MG 1-2 tablets as needed Orally before be d for 30 day(s) Jul, PredniSONE 20 MG 2 tablet Orally Once a day for 7 day(s) Jun, Next Appt Details Provider Name:Crystal Singh, 2020-08-21 02 :00:00 PM, [address] [place], [address], Insurance Providers Payer Name Payer Address Payer Phone Insured Name Patient Relati onship to Insured Coverage Start Date Coverage End Date [facility] PLAN [facility] [address] [facility] [address] HENRRY ALARCON self 2016
--- OUTSIDE RECORDS SUMMARY | 2020-10-05 06:14 | CCD ---
Author Author [facility] Organization [facility] Address Unknown Phone Unavailable Care Team Providers Care Assessment Nurse Name Role Phone Crystal Singh Unavailable PROBLEMS Type Condition ICD9-CM Code MLL95-XD Code Onset Dates Condition S tatus SNOMED Code Notes Problem Controlled type 2 diabetes m ellitus without complication, without long- term current use of insulin E11.9 Active 61930121 4 Problem Irritable bowel syndrome with constipation K58.1 Active 730760415 Problem Mixed hyperlipidemia E78.2 Active 776859427 Problem Vaginal candidiasis B37.3 Active 00856914 Problem Vitamin B12 deficiency E53.8 Active 804580355 Problem Anemia, unspecified D64.9 Active 232917484 Problem Body mass index (BMI) 45.0-49.9, adult Z68.42 A ctive 614295325 Problem Vitamin D deficiency E55.9 Active 16573071 Problem Internal derangement of right knee M23.91 Activ e 686469084338565 Problem Obesity, morbid, BMI 40.0-49.9 E66.01 Active 2 78914470 Problem Osteoarthritis of multiple joints, unspecified o steoarthritis type M15.9 Active 858621395 Problem Primary osteoarthritis involving multiple joints M 15.0 Active 672494983 Problem Primary osteoarthritis of left hand M19.042 Acti ve 67113176 Problem Candidiasis of vulva and vagina 112.1 Active 31044853 Problem Primary osteoarthritis of both knees M17.0 Act yair 529004380 Problem Primary osteoarthritis, right hand M19.041 Activ e 1376251720162641 Problem Hemorrhoid 455.6 Active 21136806 Problem Gastroesophageal reflux disease without esophagitis K21.9 Active 806508467 Problem Chronic gout of multiple sites, unspecified cause M1A.09X0 Active 10323530 Problem Hypothyroidism, unspecified type E03.9 Active 90356105 Problem Pain of hand, unspecified laterality M79.643 Act yair 73355566 Problem Digital mucous cyst of finger of right hand M67.44 1 Active 548652071 ALLERGIES Allergen (clinical drug ingredient) Drug/Non Drug Allergy do cumented on EMR Reaction Allergy Type Onset Date Status codeine Codeine Sulfate([facility] Code:[address]-28) RASH/HIVES Drug Al lergy Active ENCOUNTERS from 1965 to 2020-07-13 Encounter Location Date [facility] [address] [place] [phone] Jun, Crystal Francisco IMMUNIZATIONS Vaccine Route Administration Date [...] Education Language: Question Answer Notes Languages spoken: Ugandan Quaker: Question Answer Notes Quaker 13 Church Domestic Violence: Question Answer Notes Status: denies [...] Duration) Start Date En d Date Status Flexeril 10 mg 30 10 mg one tablet orally before bedtime for 30 days Dec, Active Ibuprofen 800 MG 1 tablet with food or milk a s needed Orally Three times a day for 30 day(s) Jun, Active Lansoprazole Not-Taking Aspirin EC 81 MG 1 tablet Orally Once a day Active Januvia 100 MG 1 tablet Orally Once a day for 90 day(s) Dec, 8 Active ProAir HFA 108 (90 Base) MCG/ACT 2 puffs as needed Inh alation every 6 hrs for 10 day(s) Dec, Active Blood Glucose Test - as directed In Vitro twice daily for 30 day(s) Feb, Active Levothyroxine Sodium Not-Prem ing Prevacid 30 MG 1 capsule Orally Twice a day for 90 day(s) Active Vitamin B-12 1000 MCG as directed IM as needed monthly for 30 days Active Cyclobenzaprine HCl Not-Taki ng Lidocaine 5 % 1 application to affected ar ea as needed Externally Three times a day as needed for 30 day(s) Feb, Active PredniSONE 20 MG 2 tablet Orally Once a day for 7 day(s) Jun, 20 Active Blood Glucose System Edis - as directed intradermally twice d aily for 30 day(s) Feb, Active Drisdol 48036 UNIT 1 capsule Orally Once a week for 90 day(s) 2016 Active Synthroid 50 MCG 1 tablet on an empty stomach in the morning Orally Once a day for 90 day(s) Sep, Active PROCEDURES No Information RESULTS No Results [...] Once a day for 7 day(s) Jun, Prevacid 30 MG 1 capsule Orally Twice a day for 90 day(s) Next Appt Details Provider Name:Crystal Singh 2020-08-21 02 :00:00 PM, [address] [place], [address], Insurance Providers Payer Name Payer Address Payer Phone Insured Name Patient Relati onship to Insured Coverage Start Date Coverage End Date [facility] [address] [facility] [phone] HENRRY ALARCON self 2016
--- OUTSIDE RECORDS SUMMARY | 2020-10-05 06:14 | CCD ---
Author Author [facility] Organization [facility] Address Unknown Phone Unavailable Care Team Providers Care Neuroscience Director Na Name Role Phone Crystal Singh Unavailable PROBLEMS Type Condition ICD9-CM Code UEG03-KI Code Onset Dates Condition S tatus SNOMED Code Notes Problem Controlled type 2 diabetes m ellitus without complication, without long- term current use of insulin E11.9 Active 15650976 4 Problem Irritable bowel syndrome with constipation K58.1 Active 278789908 Problem Mixed hyperlipidemia E78.2 Active 586295246 Problem Vaginal candidiasis B37.3 Active 98225394 Problem Vitamin B12 deficiency E53.8 Active 783290935 Problem Anemia, unspecified D64.9 Active 048512134 Problem Body mass index (BMI) 45.0-49.9, adult Z68.42 A ctive 938196365 Problem Vitamin D deficiency E55.9 Active 35107657 Problem Internal derangement of right knee M23.91 Activ e 214630193382857 Problem Obesity, morbid, BMI 40.0-49.9 E66.01 Active 2 43495166 Problem Osteoarthritis of multiple joints, unspecified o steoarthritis type M15.9 Active 326688442 Problem Primary osteoarthritis involving multiple joints M 15.0 Active 357873872 Problem Primary osteoarthritis of left hand M19.042 Acti ve 62923439 Problem Candidiasis of vulva and vagina 112.1 Active 05941639 Problem Primary osteoarthritis of both knees M17.0 Act yair 271717327 Problem Primary osteoarthritis, right hand M19.041 Activ e 3253365742666572 Problem Hemorrhoid 455.6 Active 61038996 Problem Gastroesophageal reflux disease without esophagitis K21.9 Active 386954803 Problem Chronic gout of multiple sites, unspecified cause M1A.09X0 Active 03907725 Problem Hypothyroidism, unspecified type E03.9 Active 04242094 Problem Pain of hand, unspecified laterality M79.643 Act yair 05754880 Problem Digital mucous cyst of finger of right hand M67.44 1 Active 090393270 ALLERGIES Allergen (clinical drug ingredient) Drug/Non Drug Allergy do cumented on EMR Reaction Allergy Type Onset Date Status codeine Codeine Sulfate([facility] Code:[address]-87) RASH/HIVES Drug Al lergy Active ENCOUNTERS from 1966 to 2020-07-14 Encounter Location Date Provider Diagnosis [address] [address] Feb, Crystal Francisco Mixed hyperlipidemia E78.2 ; Controlled type 2 diabetes mellitus without complication, without long-term current use of insulin E11.9 ; Anemia, unspecified D64.9 ; Gastroesophageal reflux disease without esophagitis K21.9 ; Vitamin D deficiency E55.9 ; Vitamin B12 deficiency E53.8 ; Hypothyroidism, unspecified type E03.9 and Screening for malignant neoplasm of breast Z12.39 IMMUNIZATIONS Vaccine Route Administration Date Status Influenza [...] Education Language: Question Answer Notes Languages spoken: Croatian Faith: Question Answer Notes Faith 13 Cheondoism Domestic Violence: Question Answer Notes Status: denies [...] FOR REFERRAL No Information VITAL SIGNS Weight 274.2 lbs Feb, Height 64 3/4 in Feb, BMI 45.98 kg/m2 Feb, Heart Rate 86 /min Feb, Respiratory Rate 18 /min Feb, Temperature 97.1 degrees Fahrenheit Feb, Oximetry 97 Feb, Blood pressure systolic 124 mm Hg Feb, Blood pressure diastolic 72 mm Hg Feb, MEDICATIONS Medication SIG (Take, Route, Frequency, Duration) [...] aily for 30 day(s) Feb, Active Drisdol 22803 UNIT 1 capsule Orally Once a week for 90 day(s) 2016 Active Synthroid 50 MCG 1 tablet on an empty stomach in the morning Orally Once a day for 90 day(s) Sep, Active PROCEDURES No Information RESULTS REASON FOR VISIT transfer from formerly [facility] MEDICAL (GENERAL) HISTORY Type Description Date Medical [...] STATUS No Information ASSESSMENTS Encounter Date Diagnosis Notes Feb, Anemia, unspecified (ICD-10 - D64.9) Feb, Controlled type 2 diabetes m ellitus without complication, without long-term current use of insulin (ICD-10 - E11.9) Feb, Vitamin D deficiency (ICD-10 - E55.9) Feb, Gastroesophageal reflux dise ase without esophagitis (ICD-10 - K21.9) Feb, Mixed hyperlipidemia (ICD-10 - E78.2) Feb, Hypothyroidism, unspecified type (ICD-10 - E03.9) Feb, Vitamin B12 deficiency (ICD-10 - E53.8) Feb, Screening for malignant neoplasm of [address] (ICD-10 - Z12.39) PLAN OF TREATMENT Medication Medication Name Sig Start Date Stop Date PredniSONE 20 MG 2 tablet Orally Once a day for 7 day(s) Jun, Prevacid 30 MG 1 capsule Orally Twice a day for 90 day(s) Treatment Notes Assessment Notes Clinical Notes Mixed hyperlipidemia will check lipid le vels today Controlled type 2 diabetes mellitus with out complication, without long-term current use of insulin diabetic control adequate patient-centered goals as discussed with pt. Goal Hg bA1c 7.x is appropriate for this pt. Anemia, unspecified will check CBC today Gastroesophageal reflux disease without esophagitis controlled on current medication regimen Vitamin D deficiency will check vitamin D levels today Vitamin B12 deficiency will check vitami n B12 levels today Hypothyroidism, unspecified type will ch noe thyroid levels today, asymptomatic on current levothyroxine dose Screening for malignant neoplasm of breast Mammogram order given to patient today. She will schedule her own appointment Treatment Notes Test Name Order Date VITAMIN D 25-HYDROXY 2020-07-14 Comprehensive Metabolic Profile (CMP) 2020-07-14 CBC - Complete Blood Count 2020-07-14 VITB12 & FOL 2020-07-14 LIPID PANEL (CARDIAC RISK) 2020-07-14 Future Test Test Name Order Date [facility] Walter Screening Bilateral (Ultrasound if Indicated ) (3D Mammo) 20200314 Next Appt Details 6 Months Reason: Provider Name:Crystal Singh, 2020-08-21 02 :00:00 PM, [facility] [place], [address], Insurance Providers Payer Name Payer Address Payer Phone Insured Name Patient Relati onship to Insured Coverage Start Date Coverage End Date [facility] [employer] [facility] [address] [facility] [id number] [phone] HENRRY ALARCON self 2016
--- OUTSIDE RECORDS SUMMARY | 2020-10-05 06:14 | CCD ---
Author Author [facility] Organization [facility] Address Unknown Phone Unavailable Care Team Providers Care Manager Statistical Name Role Phone Jeff Rene MD Unavailable Unavailable Jeff Rene MD Unavailable Unavailable Jeff Rene MD Unavailable Unavailable Jeff Rene MD Unavailable Unavailable Jeff Rene MD Unavailable Unavailable Jeff Rene MD Unavailable Unavailable Jeff Rene MD Unavailable Unavailable Jeff Rene MD Unavailable Unavailable Jeff Rene MD Unavailable Unavailable Jeff Rene MD Unavailable Unavailable Jeff Rene MD Unavailable Unavailable Jeff Rene MD Unavailable Unavailable Jeff Rene MD Unavailable Unavailable Jeff Rene MD Unavailable Unavailable Jeff Rene MD Unavailable Unavailable Jeff Rene MD Unavailable Unavailable Jeff Rene MD Unavailable Unavailable Jeff Rene MD Unavailable Unavailable Jeff Rene MD Unavailable Unavailable Jeff Rene MD Unavailable Unavailable Jeff Rene MD Unavailable Unavailable Jeff Rene MD Unavailable Unavailable Jeff Rene MD Unavailable Unavailable Jeff Rene MD Unavailable Unavailable Jeff Rene MD Unavailable Unavailable Jeff Rene MD Unavailable Unavailable Jeff Rene MD Unavailable Unavailable Jeff Rene MD Unavailable Unavailable Jeff Rene MD Unavailable Unavailable Jeff Rene MD Unavailable Unavailable Jeff Rene MD Unavailable Unavailable Jeff Rene MD Unavailable Unavailable Jeff Rene MD Unavailable Unavailable Jeff Rene MD Unavailable Unavailable Jeff Rene MD Unavailable Unavailable Jeff Rene MD Unavailable Unavailable Rene, Jeff Cornejo MD Unavailable Unavailable Rene, Jeff Cornejo MD Unavailable Unavailable Rene, Jeff Cornejo MD Unavailable Unavailable Rene, Jeff Cornejo MD Unavailable Unavailable Rene, Jeff Cornejo MD Unavailable Unavailable Rene, Jeff Cornejo MD Unavailable Unavailable Rene, Jeff Cornejo MD Unavailable Unavailable Rene, Jeff Cornejo MD Unavailable Unavailable Rene, Jeff Cornejo MD Unavailable Unavailable Rene, Jeff Cornejo MD Unavailable Unavailable Rene, Jeff Cornejo MD Unavailable Unavailable Fish, [facility], PA-C Unavailable Unavailabl e Fish, [facility], PA-C Unavailable Unavailabl e Fish, [facility], PA-C Unavailable Unavailabl e Fish, [facility], PA-C Unavailable Unavailabl e Fish, [facility], PA-C Unavailable Unavailabl e Fish, [facility], PA-C Unavailable Unavailabl e Fish, [facility], PA-C Unavailable Unavailabl e Fish, [facility], PA-C Unavailable Unavailabl e Fish, [facility], PA-C Unavailable Unavailabl e Fish, [facility], PA-C Unavailable Unavailabl e Fish, [facility], PA-C Unavailable Unavailabl e Fish, [facility], PA-C Unavailable Unavailabl e Fish, [facility], PA-C Unavailable Unavailabl e Fish, [facility], PA-C Unavailable Unavailabl e Fish, [facility], PA-C Unavailable Unavailabl e Fish, [facility], PA-C Unavailable Unavailabl e Fish, [facility], PA-C Unavailable Unavailabl e Fish, [facility], PA-C Unavailable Unavailabl e Fish, [facility], PA-C Unavailable Unavailabl e Fish, [facility], PA-C Unavailable Unavailabl e Fish, [facility], PA-C Unavailable Unavailabl e Fish, [facility], PA-C Unavailable Unavailabl e Fish, [facility], PA-C Unavailable Unavailabl e Fish, [facility], PA-C Unavailable Unavailabl e Fish, [facility], PA-C Unavailable Unavailabl e Fish, [facility], PA-C Unavailable Unavailabl e Fish, [facility], PA-C Unavailable Unavailabl e Fish, [facility], PA-C Unavailable Unavailabl e Fish, [facility], PA-C Unavailable Unavailabl e Fish, [facility], PA-C Unavailable Unavailabl e Fish, [facility], PA-C Unavailable Unavailabl e Fish, [facility], PA-C Unavailable Unavailabl e Fish, [facility], PA-C Unavailable Unavailabl e Fish, [facility], PA-C Unavailable Unavailabl e Fish, [facility], PA-C Unavailable Unavailabl e Fish, [facility], PA-C Unavailable Unavailabl e Fish, [facility], PA-C Unavailable Unavailabl e Fish, [facility], PA-C Unavailable Unavailabl e Fish, [facility], PA-C Unavailable Unavailabl e Fish, [facility], PA-C Unavailable Unavailabl e Fish, [facility], PA-C Unavailable Unavailabl e Fish, [facility], PA-C Unavailable Unavailabl e Fish, [facility], PA-C Unavailable Unavailabl e Fish, [facility], PA-C Unavailable Unavailabl e Fish, [facility], PA-C Unavailable Unavailabl e Fish, [facility], PA-C Unavailable Unavailabl e Fish, [facility], PA-C Unavailable Unavailabl e Fish, [facility], PA-C Unavailable Unavailabl e Fish, [facility], PA-C Unavailable Unavailabl e Fish, [facility], PA-C Unavailable Unavailabl e Fish, [facility], PA-C Unavailable Unavailabl e Fish, [facility], PA-C Unavailable Unavailabl e Fish, [facility], PA-C Unavailable Unavailabl e Fish, [facility], PA-C Unavailable Unavailabl e Fish, [facility], PA-C Unavailable Unavailabl e Fish, [facility], PA-C Unavailable Unavailabl e Fish, [facility], PA-C Unavailable Unavailabl e Fish, Maureen Mukherjee MPAS, PA-C Unavailable Unavailabl e Fish, Maureen Mukherjee [facility], PA-C Unavailable Unavailabl e Fish, Maureen Mukherjee [facility], PA-C Unavailable Unavailabl e Fish, Maureen Mukherjee MPAS, PA-C Unavailable Unavailabl e Fish, Maureen Mukherjee MPAS, PA-C Unavailable Unavailabl e Fish, Maureen Mukherjee [facility], PA-C Unavailable Unavailabl e Fish, Maureen Mukherjee MPAS, PA-C Unavailable Unavailabl e Fish, Maureen Mukherjee MPAS, PA-C Unavailable Unavailabl e Fish, Maureen Mukherjee MPAS, PA-C Unavailable Unavailabl e ROMERO, GARRY MD Unavailable Unavailable ROMERO, GARRY MD Unavailable Unavailable ROMERO, GARRY MD Unavailable Unavailable ROMERO, GARRY MD Unavailable Unavailable ROMERO, GARRY MD Unavailable Unavailable ROMERO, GARRY MD Unavailable Unavailable ROMERO, GARRY MD Unavailable Unavailable ROMERO, GARRY MD Unavailable Unavailable ROMERO, GARRY MD Unavailable Unavailable ROMERO, GARRY MD Unavailable Unavailable ROMERO, GARRY MD Unavailable Unavailable ROMERO, GARRY MD Unavailable Unavailable ROMERO, GARRY MD Unavailable Unavailable ROMERO, GARRY MD Unavailable Unavailable ROMERO, GARRY MD Unavailable Unavailable ROMERO, GARRY MD Unavailable Unavailable ROMERO, GARRY MD Unavailable Unavailable ROMERO, GARRY MD Unavailable Unavailable ROMERO, GARRY MD Unavailable Unavailable ROMERO, GARRY MD Unavailable Unavailable ROMERO, GARRY MD Unavailable Unavailable ROMERO, GARRY MD Unavailable Unavailable ROMERO, GARRY MD Unavailable Unavailable ROMERO, GARRY MD Unavailable Unavailable ROMERO, GARRY MD Unavailable Unavailable ROMERO, GARRY MD Unavailable Unavailable ROMERO, GARRY MD Unavailable Unavailable ROMERO, GARRY MD Unavailable Unavailable ROMERO, GARRY MD Unavailable Unavailable ROMERO, GARRY MD Unavailable Unavailable Re-disclosure Warning The records that you are about to access may contain information from federally-assisted alcohol or drug abuse programs. If such information is present, then the following federally mandated warning applies: This information has been disclosed to you from records protected by federal confidentiality rules (42 CFR part 2). The federal rules prohibit you from making any further disclosure of this information unless further disclosure is expressly permitted by the written consent of the person to whom it pertains or as otherwise permitted by 42 CFR part 2. A general authorization for the release of medical or other information is NOT sufficient for this purpose. The Federal rules restrict any use of the information to criminally investigate or prosecute any alcohol or drug abuse patient.The records that you are about to access may contain highly sensitive health information, the redisclosure of which is protected by Article 27-F of the [facility] Public Health law. If you continue you may have access to information: Regarding HIV / AIDS; Provided by facilities licensed or operated by the [facility] Office of Mental Health; or Provided by the [facility] Office for People With Developmental Disabilities. If such information is present, then the following [facility] mandated warning applies: This information has been disclosed to you from confidential records which are protected by state law. State law prohibits you from making any further disclosure of this information without the specific written consent of the person to whom it pertains, or as otherwise permitted by law. Any unauthorized further disclosure in violation of state law may result in a fine or senior living sentence or both. A general authorization for the release of medical or other information is NOT sufficient authorization for further disc losure. Allergies and Adverse Reactions Type Description Substance Reaction Status Data Source(s ) codeine Codeine Sulfate Codeine RASH/HIVES Active eCW1 ([facility]) Codeine Sulfate Codeine Sulfate Codeine Sulfate RASH/HIVES Active eCW1 ([facility]) Family History Family Member Name Family Member Gender Family Member Status Date o f Status Description Data Source(s) Unknown Male Problem MEDENT ([facility]) Encounters Encounter Providers Location Date Indications Data Source(s ) [place] [address] [facility] [place] [address] 10/03/2020 12:00:00 AM EST eCW1 ([facility]) [place] [address] [facility] [place] [address] 09/06/2020 12:00:00 AM EST eCW1 ([facility]) [place] [address] [facility] [place] [address] 08/31/2020 12:00:00 AM EST eCW1 ([facility]) [place] [address] [facility] [place] [address] 08/21/2020 12:00:00 AM EST eCW1 ([facility]) Unknown [address] [facility] [address] 08/21/2020 12:00:00 AM EST eCW1 ([facility]) Unknown [address] [facility] [address] 08/01/2020 12:00:00 AM EST eCW1 ([facility]) Unknown [address] [facility] [address] 07/31/2020 12:00:00 AM EST eCW1 ([facility]) Unknown [address] [facility] [address] 07/31/2020 12:00:00 AM EST eCW1 ([facility]) Outpatient [address] [facility] [address] 07/20/2020 12:00:00 AM EST eCW1 ([facility]) Unknown [address] [facility] [address] 07/12/2020 12:00:00 AM EDT eCW1 ([facility]) Unknown [address] [facility] [address] 06/27/2020 12:00:00 AM EDT eCW1 ([facility]) Unknown [address] [facility] [address] 06/23/2020 12:00:00 AM EDT eCW1 ([facility]) Outpatient Attender: Yaz ZAMORA PA-C Physical Therapy 06/09/2020 10:30:00 AM EDT MEDENT ([facility]) Outpatient Attender: Yaz ZAMORA PA-C Physical Therapy 03/31/2020 02:30:00 PM EDT MEDENT ([facility]) Outpatient Attender: GARRY ROMERO MD Physical Therapy 09:15:00 AM EDT MED[facility] ([facility]) [place]patient [address] [facility] [address] 03/14/2020 12:00:00 AM EDT eCW1 ([facility]) Outpatient Attender: GARRY ROMERO MD Physical Therapy 01:00:00 PM EDT MEDENT ([facility]) Outpatient Attender: Yaz ZAMORA PA-C Physical Therapy 03/01/2020 11:00:00 AM EDT MEDENT ([facility]) Outpatient Referrer: Yaz ZAMORA PA-C 02/17/2020 01:4 2:00 PM EDT [facility] Outpatient Referrer: Yaz ZAMORA PA-C 02/16/2020 09:0 6:00 AM EDT [facility] Outpatient Referrer: Yaz ZAMORA PA-C 02/09/2020 11:2 1:00 AM EDT [facility] Outpatient Referrer: Clemente Rene MD 02/09/2020 11:17:00 AM EDT [facility] Outpatient Referrer: Clemente Rene MD 02/09/2020 11:02:00 AM EDT [facility] Outpatient Referrer: Clemente Rene MD 02/09/2020 10:56:00 AM EDT [facility] Outpatient Attender: Yaz ZAMORA PA-C Physical Therapy 02/01/2020 03:00:00 PM EDT MEDENT ([facility]) [facility] [address] [place] [address] 01/19/2020 12:00:00 AM EDT eCW1 ([facility]) [facility] [address] [place] [address], [place] [address] 01/19/2020 12:00:00 AM EDT eCW1 ([facility] [address] [facility] [address] 01/07/2020 12:00:00 AM EDT eCW1 ([facility] [address] [facility] [address] 12/29/2019 12:00:00 AM EDT [facility]CW1 [facility] [place] [id number] [facility] [address] 11/03/2019 12:00:00 AM EST eCW1 ([facility]) [address] [address] 09/17/2019 12:00:00 AM EST eCW1 ([facility]) [address] [address] 09/17/2019 12:00:00 AM EST eCW1 ([facility]) [address] [address] 09/01/2019 12:00:00 AM EST eCW1 ([facility]) Immunizations Vaccine Date Status Description Data Source(s) influenza, recombinant, quadrIvalent,injectable, prese rvative free 09/17/2019 04:08:00 PM EST completed eCW1 ([facility]) influenza, recombinant, quadrIvalent,injectable, prese rvative free 09/17/2019 04:08:00 PM EST completed eCW1 ([facility]) influenza, recombinant, quadrIvalent,injectable, prese rvative free 09/17/2019 04:08:00 PM EST completed eCW1 ([facility]) influenza, recombinant, quadrIvalent,injectable, prese rvative free 09/17/2019 04:08:00 PM EST completed eCW1 ([facility]) influenza, recombinant, quadrIvalent,injectable, prese rvative free 09/17/2019 04:08:00 PM EST completed eCW1 ([facility]) influenza, recombinant, quadrIvalent,injectable, prese rvative free 09/17/2019 04:08:00 PM EST completed eCW1 ([facility]) influenza, recombinant, quadrIvalent,injectable, prese rvative free 09/17/2019 04:08:00 PM EST completed eCW1 ([facility]) influenza, recombinant, quadrIvalent,injectable, prese rvative free 09/17/2019 04:08:00 PM EST completed eCW1 ([facility]) influenza, recombinant, quadrIvalent,injectable, prese rvative free 09/17/2019 04:08:00 PM EST completed eCW1 ([facility]) influenza, recombinant, quadrIvalent,injectable, prese rvative free 09/17/2019 04:08:00 PM EST completed eCW1 ([facility]) influenza, recombinant, quadrIvalent,injectable, prese rvative free 09/17/2019 04:08:00 PM EST completed eCW1 ([facility]) influenza, recombinant, quadrIvalent,injectable, prese rvative free 09/17/2019 04:08:00 PM EST completed eCW1 ([facility]) influenza, recombinant, quadrIvalent,injectable, prese rvative free 09/17/2019 04:08:00 PM EST completed eCW1 ([facility]) influenza, recombinant, quadrIvalent,injectable, prese rvative free 09/17/2019 04:08:00 PM EST completed eCW1 ([facility]) Medications Medication Brand Name Start Date Product Form Dose Route Admi nistrative Instructions Pharmacy Instructions Status Indications Reaction Description Data Source(s) Vitamin B12 1000 MCG Vitamin B12 1000 MCG 10/03/2020 12:00:00 AM ES T 1.0 {tablet} active Vitamin B12 1000 MCG eC W1 ([facility]) Prednisone 5 MG Oral Tablet PredniSONE 5 MG PredniSONE 5 MG 08/31/2020 12:00:00 AM EST 3.0 {tablet} active PredniSONE 5 MG eCW1 ([facility]) 5 mg 08/31/2020 12:00:00 AM EST tablet 90 TAKE THREE TABLETS BY MOUTH EVERY DAY WITH FOOD TAKE THREE TABLETS BY MOUTH EVERY DAY WITH FOOD SOLD: 2019 [facility] Prednisone 5 MG Oral Tablet PredniSONE 5 MG PredniSONE 5 MG 08/31/2020 12:00:00 AM EST 3.0 {tablet} active PredniSONE 5 MG eCW1 ([facility]) Prednisone 5 MG Oral Tablet PredniSONE 5 MG PredniSONE 5 MG 08/31/2020 12:00:00 AM EST 3.0 {tablet} active PredniSONE 5 MG eCW1 ([facility]) Famotidine 40 MG Oral Tablet FAMOTIDINE 08/22/2020 12:00:00 AM EST tab let 30 TAKE ONE TABLET BY MOUTH AT BEDTIME TAKE ONE TABLET BY MOUTH AT BEDTIME SOLD: 08/24/2020 [facility] 500 mg 08/22/2020 12:00:00 AM EST tablet extended release 24 hr 60 TAKE TWO TABLETS BY MOUTH EVERY EVENING TAKE TWO TABLETS BY MOUTH EVERY EVENING SOLD: 08/24/2020 [facility] 24 HR Metformin hydrochloride 500 MG Ext ended Release Oral Tablet MetFORMIN HCl ER 500 MG MetFORMIN HCl ER 500 MG 08/21/2020 12:00:00 AM EST 2.0 {tablets_with_evening_meal} active MetF ORMIN HCl ER 500 MG eCW1 ([facility]) 24 HR Metformin hydrochloride 500 MG Ext ended Release Oral Tablet MetFORMIN HCl ER 500 MG MetFORMIN HCl ER 500 MG 08/21/2020 12:00:00 AM EST 2.0 {tablets_with_evening_meal} active MetF ORMIN HCl ER 500 MG eCW1 ([facility]) Famotidine 40 MG Oral Tablet Famotidine 40 MG 08/21/2020 12:00:00 A M EST 1.0 {tablet_at_bedtime} active Famotidine 4 0 MG eCW1 ([facility]) Famotidine 40 MG Oral Tablet Famotidine 40 MG 08/21/2020 12:00:00 A M EST 1.0 {tablet_at_bedtime} active Famotidine 4 0 MG eCW1 ([facility]) Famotidine 40 MG Oral Tablet Famotidine 40 MG 08/21/2020 12:00:00 A M EST 1.0 {tablet_at_bedtime} active Famotidine 4 0 MG eCW1 ([facility]) Famotidine 40 MG Oral Tablet Famotidine 40 MG 08/21/2020 12:00:00 A M EST 1.0 {tablet_at_bedtime} active Famotidine 4 0 MG eCW1 ([facility]) 24 HR Metformin hydrochloride 500 MG Ext ended Release Oral Tablet MetFORMIN HCl ER 500 MG MetFORMIN HCl ER 500 MG 08/21/2020 12:00:00 AM EST 2.0 {tablets_with_evening_meal} active MetF ORMIN HCl ER 500 MG eCW1 ([facility]) Famotidine 40 MG Oral Tablet Famotidine 40 MG 08/21/2020 12:00:00 A M EST 1.0 {tablet_at_bedtime} active Famotidine 4 0 MG eCW1 ([facility]) Famotidine 40 MG Oral Tablet Famotidine 40 MG 08/21/2020 12:00:00 A M EST 1.0 {tablet_at_bedtime} active Famotidine 4 0 MG eCW1 ([facility]) 24 HR Metformin hydrochloride 500 MG Ext ended Release Oral Tablet MetFORMIN HCl ER 500 MG MetFORMIN HCl ER 500 MG 08/21/2020 12:00:00 AM EST 2.0 {tablets_with_evening_meal} active MetF ORMIN HCl ER 500 MG eCW1 ([facility]) 24 HR Metformin hydrochloride 500 MG Ext ended Release Oral Tablet MetFORMIN HCl ER 500 MG MetFORMIN HCl ER 500 MG 08/21/2020 12:00:00 AM EST 2.0 {tablets_with_evening_meal} active MetF ORMIN HCl ER 500 MG eCW1 ([facility]) 24 HR Metformin hydrochloride 500 MG Ext ended Release Oral Tablet MetFORMIN HCl ER 500 MG MetFORMIN HCl ER 500 MG 08/21/2020 12:00:00 AM EST 2.0 {tablets_with_evening_meal} active MetF ORMIN HCl ER 500 MG eCW1 ([facility]) Famotidine 40 MG Oral Tablet Famotidine 40 MG 08/21/2020 12:00:00 A M EST 1.0 {tablet_at_bedtime} active Famotidine 4 0 MG eCW1 ([facility]) 24 HR Metformin hydrochloride 500 MG Ext ended Release Oral Tablet MetFORMIN HCl ER 500 MG MetFORMIN HCl ER 500 MG 08/21/2020 12:00:00 AM EST 2.0 {tablets_with_evening_meal} active MetF ORMIN HCl ER 500 MG eCW1 ([facility]) 20 mg 07/31/2020 12:00:00 AM EST tablet 42 TAKE TWO TABLETS BY MOUTH EVERY DAY TAKE TWO TABLETS BY MOUTH EVERY DAY SOLD: 07/31/2020 [facility] 25 mg 07/21/2020 12:00:00 AM EST tablet 60 TAKE ONE TO TWO TABLETS BY MOUTH EVERY DAY NEEDED BEFORE BED TAKE ONE TO TWO TABLETS BY MOUTH EVERY D AY NEEDED BEFORE BED SOLD: 09/20/2020 [facility] 20 mg 07/21/2020 12:00:00 AM EST tablet 14 TAKE TWO TABLETS BY MOUTH EVERY DAY TAKE TWO TABLETS BY MOUTH EVERY DAY SOLD: 07/21/2020 [facility] 25 mg 07/21/2020 12:00:00 AM EST tablet 60 TAKE ONE TO TWO TABLETS BY MOUTH EVERY DAY NEEDED BEFORE BED TAKE ONE TO TWO TABLETS BY MOUTH EVERY D AY NEEDED BEFORE BED SOLD: 07/21/2020 [facility] Hydroxyzine Hydrochloride 25 MG Oral Tablet HydrOXYzin e HCl 25 MG HydrOXYzine HCl 25 MG 07/20/2020 12:00:00 AM EST active HydrOXYzine HCl 25 MG eCW1 ([facility]) Hydroxyzine Hydrochloride 25 MG Oral Tablet HydrOXYzin e HCl 25 MG HydrOXYzine HCl 25 MG 07/20/2020 12:00:00 AM EST active HydrOXYzine HCl 25 MG eCW1 ([facility]) Hydroxyzine Hydrochloride 25 MG Oral Tablet HydrOXYzin e HCl 25 MG HydrOXYzine HCl 25 MG 07/20/2020 12:00:00 AM EST active HydrOXYzine HCl 25 MG eCW1 ([facility]) Hydroxyzine Hydrochloride 25 MG Oral Tablet HydrOXYzin e HCl 25 MG HydrOXYzine HCl 25 MG 07/20/2020 12:00:00 AM EST active HydrOXYzine HCl 25 MG eCW1 ([facility]) Hydroxyzine Hydrochloride 25 MG Oral Tablet HydrOXYzin e HCl 25 MG HydrOXYzine HCl 25 MG 07/20/2020 12:00:00 AM EST active HydrOXYzine HCl 25 MG eCW1 ([facility]) Hydroxyzine Hydrochloride 25 MG Oral Tablet HydrOXYzin e HCl 25 MG HydrOXYzine HCl 25 MG 07/20/2020 12:00:00 AM EST active HydrOXYzine HCl 25 MG eCW1 ([facility]) Hydroxyzine Hydrochloride 25 MG Oral Tablet HydrOXYzin e HCl 25 MG HydrOXYzine HCl 25 MG 07/20/2020 12:00:00 AM EST active HydrOXYzine HCl 25 MG eCW1 ([facility]) Hydroxyzine Hydrochloride 25 MG Oral Tablet HydrOXYzin e HCl 25 MG HydrOXYzine HCl 25 MG 07/20/2020 12:00:00 AM EST active HydrOXYzine HCl 25 MG eCW1 ([facility]) Hydroxyzine Hydrochloride 25 MG Oral Tablet HydrOXYzin e HCl 25 MG HydrOXYzine HCl 25 MG 07/20/2020 12:00:00 AM EST active HydrOXYzine HCl 25 MG eCW1 ([facility]) Hydroxyzine Hydrochloride 25 MG Oral Tablet HydrOXYzin e HCl 25 MG HydrOXYzine HCl 25 MG 07/20/2020 12:00:00 AM EST active HydrOXYzine HCl 25 MG eCW1 ([facility]) 20 mg 07/13/2020 12:00:00 AM EDT tablet 14 TAKE TWO TABLETS BY MOUTH EVERY DAY TAKE TWO TABLETS BY MOUTH EVERY DAY SOLD: 07/14/2020 [facility] 20 mg 07/05/2020 12:00:00 AM EDT tablet 14 TAKE TWO TABLETS BY MOUTH EVERY DAY FOR 7 DAYS TAKE TWO TABLETS BY MOUTH EVERY DAY FOR 7 DAYS SOLD: 020 [facility] Prednisone 20 MG Oral Tablet PredniSONE 20 MG PredniSONE 20 MG 06/23/2020 12:00:00 AM EDT 2.0 {tablet} active Pr edniSONE 20 MG eCW1 ([facility]) Prednisone 20 MG Oral Tablet PredniSONE 20 MG PredniSONE 20 MG 06/23/2020 12:00:00 AM EDT 2.0 {tablet} active Pr edniSONE 20 MG eCW1 ([facility]) Prednisone 20 MG Oral Tablet PredniSONE 20 MG PredniSONE 20 MG 06/23/2020 12:00:00 AM EDT 2.0 {tablet} active Pr edniSONE 20 MG eCW1 ([facility]) Prednisone 5 MG Oral Tablet PredniSONE 5 MG PredniSONE 5 MG 06/23/2020 12:00:00 AM EDT active PredniSONE 5 MG e CW1 ([facility]) Prednisone 20 MG Oral Tablet PredniSONE 20 MG PredniSONE 20 MG 06/23/2020 12:00:00 AM EDT 2.0 {tablet} active Pr edniSONE 20 MG eCW1 ([facility]) Prednisone 20 MG Oral Tablet PredniSONE 20 MG PredniSONE 20 MG 06/23/2020 12:00:00 AM EDT 2.0 {tablet} active Pr edniSONE 20 MG eCW1 ([facility]) Prednisone 20 MG Oral Tablet PredniSONE 20 MG PredniSONE 20 MG 06/23/2020 12:00:00 AM EDT 2.0 {tablet} active Pr edniSONE 20 MG eCW1 ([facility]) Prednisone 20 MG Oral Tablet PredniSONE 20 MG PredniSONE 20 MG 06/23/2020 12:00:00 AM EDT 2.0 {tablet} active Pr edniSONE 20 MG eCW1 ([facility] [facility]) 20 mg 06/23/2020 12:00:00 AM EDT tablet 28 TAKE TWO TABLETS BY MOUTH EVERY DAY TAKE TWO TABLETS BY MOUTH EVERY DAY SOLD: 06/23/2020 [facility] Prednisone 20 MG Oral Tablet PredniSONE 20 MG PredniSONE 20 MG 06/23/2020 12:00:00 AM EDT 2.0 {tablet} active Pr edniSONE 20 MG eCW1 ([facility]) Prednisone 20 MG Oral Tablet PredniSONE 20 MG PredniSONE 20 MG 06/23/2020 12:00:00 AM EDT 2.0 {tablet} active Pr edniSONE 20 MG eCW1 ([facility]) Prednisone 20 MG Oral Tablet PredniSONE 20 MG PredniSONE 20 MG 06/23/2020 12:00:00 AM EDT 2.0 {tablet} active Pr edniSONE 20 MG eCW1 ([facility]) Prednisone 20 MG Oral Tablet PredniSONE 20 MG PredniSONE 20 MG 06/23/2020 12:00:00 AM EDT 2.0 {tablet} active Pr edniSONE 20 MG eCW1 ([facility]) Prednisone 20 MG Oral Tablet PredniSONE 20 MG PredniSONE 20 MG 06/23/2020 12:00:00 AM EDT 2.0 {tablet} active Pr edniSONE 20 MG eCW1 ([facility]) 25 mg 05/30/2020 12:00:00 AM EDT tablet 28 TAKE 1-2 TABLETS BY MOUTH BEFORE BED TAKE 1-2 TABLETS BY MOUTH BEFORE BED SOLD: 06/23/2020 [facility] 25 mg 05/30/2020 12:00:00 AM EDT tablet 28 TAKE 1-2 TABLETS BY MOUTH BEFORE BED TAKE 1-2 TABLETS BY MOUTH BEFORE BED SOLD: 05/30/2020 [facility] 50 mcg 05/19/2020 12:00:00 AM EDT tablet 30 TAKE ONE TABLET BY MOUTH EVERY DAY TAKE ONE TABLET BY MOUTH EVERY DAY SOLD: 08/02/2020 [facility] 50 mcg 05/19/2020 12:00:00 AM EDT tablet 30 TAKE ONE TABLET BY MOUTH EVERY DAY TAKE ONE TABLET BY MOUTH EVERY DAY SOLD: 05/19/2020 [facility] 50 mcg 05/19/2020 12:00:00 AM EDT tablet 30 TAKE ONE TABLET BY MOUTH EVERY DAY TAKE ONE TABLET BY MOUTH EVERY DAY SOLD: 09/04/2020 [facility] 50 mcg 05/19/2020 12:00:00 AM EDT tablet 30 TAKE ONE TABLET BY MOUTH EVERY DAY TAKE ONE TABLET BY MOUTH EVERY DAY SOLD: 06/22/2020 [facility] 30 mg 03/23/2020 12:00:00 AM EDT capsule,delayed release (DR/EC) 180 TAKE ONE CAPSULE BY MOUTH TWICE A DAY TAKE ONE CAPSULE BY MOUTH TWICE A DAY SOLD: 03/25/2020 [facility] 30 mg 03/23/2020 12:00:00 AM EDT capsule,delayed release (DR/EC) 180 TAKE ONE CAPSULE BY MOUTH TWICE A DAY TAKE ONE CAPSULE BY MOUTH TWICE A DAY SOLD: 06/22/2020 [facility] Methylprednisolone 4 MG Oral Tablet [Medrol] Medrol 12:00:00 AM EDT completed MEDENT ([facility]) 4 mg 02/01/2020 12:00:00 AM EDT tablet 21 DI RECTED DIRECTED SOLD: 02/03/2020 [facility] 1,000 mcg/mL 01/20/2020 12:00:00 AM EDT solution 1 USE DIRECTED NEEDED MONTHLY INTRAMUSCULARLY USE DIRECTED NEEDED MONTHLY INTRAMUSCULARLY SOLD : 01/21/2020 [facility] 5 % 01/15/2020 12:00:00 AM EDT ointment 35 APPLY TO AFFECTED AREA(S) THREE TIMES A DAY NEEDED APPLY TO AFFECTED AREA(S) THREE TIMES A DAY NEEDED SOLD: 01/18/2020 [facility] Flexeril 10 mg 30 10 mg UNK 12/29/2019 12:00:00 AM EDT active Flexeril 10 mg 30 10 mg eCW1 ([facility]) Flexeril 10 mg 30 10 mg UNK 12/29/2019 12:00:00 AM EDT active Flexeril 10 mg 30 10 mg eCW1 ([facility]) Flexeril 10 mg 30 10 mg UNK 12/29/2019 12:00:00 AM EDT active Flexeril 10 mg 30 10 mg eCW1 ([facility]) Flexeril 10 mg 30 10 mg UNK 12/29/2019 12:00:00 AM EDT active one tablet eCW1 ([facility]) Flexeril 10 mg 30 10 mg UNK 12/29/2019 12:00:00 AM EDT active Flexeril 10 mg 30 10 mg eCW1 ([facility]) Flexeril 10 mg 30 10 mg UNK 12/29/2019 12:00:00 AM EDT active Flexeril 10 mg 30 10 mg eCW1 ([facility]) Flexeril 10 mg 30 10 mg UNK 12/29/2019 12:00:00 AM EDT active one tablet eCW1 ([facility]) Flexeril 10 mg 30 10 mg UNK 12/29/2019 12:00:00 AM EDT active Flexeril 10 mg 30 10 mg eCW1 ([facility]) Cyclobenzaprine hydrochloride 10 MG Oral Tablet CYCLOBENZAPR INE HCL 12/29/2019 12:00:00 AM EDT tablet 30 TAKE ONE TABLET BY MOUTH AT BEDTIME TAKE ONE TABLET BY MOUTH AT BEDTIME SOLD: 01/04/2020 [facility] Flexeril 10 mg 30 10 mg UNK 12/29/2019 12:00:00 AM EDT active Flexeril 10 mg 30 10 mg eCW1 ([facility]) Flexeril 10 mg 30 10 mg UNK 12/29/2019 12:00:00 AM EDT active Flexeril 10 mg 30 10 mg eCW1 ([facility]) Flexeril 10 mg 30 10 mg UNK 12/29/2019 12:00:00 AM EDT active Flexeril 10 mg 30 10 mg eCW1 ([facility]) 875-125 mg 11/18/2019 12:00:00 AM EST tablet 20 TAKE ONE TABLET BY MOUTH TWICE A DAY FOR 10 DAYS TAKE ONE TABLET BY MOUTH TWICE A DAY FOR 10 DAYS SOLD: 11/18/2019 [facility] 150 mg 11/18/2019 12:00:00 AM EST tablet 1 TAKE 1 TABLET BY MOUTH ONCE TAKE 1 TABLET BY MOUTH ONCE SOLD: 11/18/2019 [facility] 800 mg 09/18/2019 12:00:00 AM EST tablet 90 TAKE ONE TABLET BY MOUTH THREE TIMES A DAY WITH FOOD OR MILK NEEDED TAKE ONE TABLET BY MOUTH THREE TIMES A DAY WITH FOOD OR MILK NEEDED SOLD: 01/28/2020 [facility] 800 mg 09/18/2019 12:00:00 AM EST tablet 90 TAKE ONE TABLET BY MOUTH THREE TIMES A DAY WITH FOOD OR MILK NEEDED TAKE ONE TABLET BY MOUTH THREE TIMES A DAY WITH FOOD OR MILK NEEDED SOLD: 09/20/2019 [facility] 800 mg 09/18/2019 12:00:00 AM EST tablet 90 TAKE ONE TABLET BY MOUTH THREE TIMES A DAY WITH FOOD OR MILK NEEDED TAKE ONE TABLET BY MOUTH THREE TIMES A DAY WITH FOOD OR MILK NEEDED SOLD: 07/18/2020 [facility] 50 mcg 05/06/2019 12:00:00 AM EDT tablet 30 TAKE ONE TABLET BY MOUTH EVERY MORNING ON EMPTY STOMACH TAKE ONE TABLET BY MOUTH EVERY MORNING O N EMPTY STOMACH SOLD: 02/24/2020 [facility] 50 mcg 05/06/2019 12:00:00 AM EDT tablet 30 TAKE ONE TABLET BY MOUTH EVERY MORNING ON EMPTY STOMACH TAKE ONE TABLET BY MOUTH EVERY MORNING O N EMPTY STOMACH SOLD: 09/20/2019 [facility] 50 mcg 05/06/2019 12:00:00 AM EDT tablet 30 TAKE ONE TABLET BY MOUTH EVERY MORNING ON EMPTY STOMACH TAKE ONE TABLET BY MOUTH EVERY MORNING O N EMPTY STOMACH SOLD: 12/03/2019 [facility] 50 mcg 05/06/2019 12:00:00 AM EDT tablet 30 TAKE ONE TABLET BY MOUTH EVERY MORNING ON EMPTY STOMACH TAKE ONE TABLET BY MOUTH EVERY MORNING O N EMPTY STOMACH SOLD: 08/17/2019 [facility] 50 mcg 05/06/2019 12:00:00 AM EDT tablet 30 TAKE ONE TABLET BY MOUTH EVERY MORNING ON EMPTY STOMACH TAKE ONE TABLET BY MOUTH EVERY MORNING O N EMPTY STOMACH SOLD: 04/04/2020 [facility] 50 mcg 05/06/2019 12:00:00 AM EDT tablet 30 TAKE ONE TABLET BY MOUTH EVERY MORNING ON EMPTY STOMACH TAKE ONE TABLET BY MOUTH EVERY MORNING O N EMPTY STOMACH SOLD: 10/28/2019 [facility] 50 mcg 05/06/2019 12:00:00 AM EDT tablet 30 TAKE ONE TABLET BY MOUTH EVERY MORNING ON EMPTY STOMACH TAKE ONE TABLET BY MOUTH EVERY MORNING O N EMPTY STOMACH SOLD: 01/13/2020 [facility] 5 % 02/18/2019 12:00:00 AM EDT ointment 35 APPLY ONE TOPICALLY THREE TIMES A DAY NEEDED APPLY ONE TOPICALLY THREE TIMES A DAY NEEDED SOLD: 2019 [facility] 5 % 02/18/2019 12:00:00 AM EDT ointment 35 APPLY ONE TOPICALLY THREE TIMES A DAY NEEDED APPLY ONE TOPICALLY THREE TIMES A DAY NEEDED SOLD: 2018 [facility] 30 mg 01/27/2019 12:00:00 AM EDT capsule,delayed release (DR/EC) 60 TAKE ONE CAPSULE BY MOUTH TWICE A DAY TAKE ONE CAPSULE BY MOUTH TWICE A DAY SOLD: 01/18/2020 [facility] 30 mg 01/27/2019 12:00:00 AM EDT capsule,delayed release (DR/EC) 60 TAKE ONE CAPSULE BY MOUTH TWICE A DAY TAKE ONE CAPSULE BY MOUTH TWICE A DAY SOLD: 11/23/2019 [facility] 30 mg 01/27/2019 12:00:00 AM EDT capsule,delayed release (DR/EC) 60 TAKE ONE CAPSULE BY MOUTH TWICE A DAY TAKE ONE CAPSULE BY MOUTH TWICE A DAY SOLD: 09/28/2019 [facility] Insurance Providers Payer name Policy type / Coverage type Policy ID Covered alliance party ID Covered alliance party's relationship to anderson Policy Anderson Plan Information [facility] COMMUN[facility] [id number] SP [id number] [facility] [employer] PLUS [id number] SP [id number] [facility] COMMUNITY [facility] [id number] SP [id number] [facility] O [id number] S [id number] BCBS [facility] [id number] SP [id number] BCBS OF [place] 306/806 [id number] SP [id number] BCBS [facility] [id number] SP [id number] BCBS [facility] [id number] SP [id number] ANSI-Commercial [id number] ANSI-Commercial [id number] ANSI-Commercial [id number] [place] [place] 306/806 [id number] SP [id number] ANSI-Commercial [id number] [facility] [employer] [facility] [employer] Medigap Part B [id number] Self [id number] BS [employer] Commercial [id number] Self [id number] BS Family Health Plus Medigap Part B [id number] Self [id number] [facility] Medigap Part B [id number] Self [id number] BS [employer] Commercial [id number] Self [id number] ANSI-Commercial [id number] ANSI-Commercial [id number] ANSI-Commercial [id number] ANSI-Commercial [id number] ANSI-Commercial [id number] ANSI-Commercial [id number] ANSI-Commercial [id number] ANSI-Commercial [id number] ANSI-Commercial [id number] O BLUE [id number] SP [id number] ANSI-Commercial [id number] ANSI-Commercial [id number] ANSI-Commercial [id number] ANSI-Commercial [id number] ANSI-Commercial [id number] Blue [employer] Blue Shield P [id number] SELF [id number] Blue [employer] Blue Shield P [id number] SELF [id number] [employer] Medigap Part B [id number] Self [id number] BS [employer] Commercial [id number] Self [id number] [facility] Community Plan Medigap Part B [id number] Self [id number] BS [employer] Commercial [id number] Self [id number] [facility] Community Plan Medigap Part B [id number] Self [id number] BS [employer] Commercial [id number] Self [id number] [facility] [employer] [facility] [employer] Medigap Part B [id number] Self [id number] BS [employer] Commercial [id number] Self [id number] BCBS [place] PPO 302/307 [id number] SP [id number] [facility] Community Plan Medigap Part B [id number] Self [id number] BS [employer] Commercial [id number] Self [id number] [facility] Medigap Part B [id number] Self [id number] BS [employer] Commercial [id number] Self [id number] [employer] [employer] Medigap Part B [id number] Self [id number] BS [employer] Commercial [id number] Self [id number] EXCELLUS BCBS B [id number] S [id number] SELF PAY ONLY UNAVAILABLE UNAV AILABLE EXCELLUS BCBS B [id number] S YNC [id number] BCBS [place] PPO 302/307 [id number] SP [id number] [employer]LL[employer] BCBS B [id number] S W [id number] BCBS [place] PPO 302/307 [id number] SP [id number] HMO BLUE [id number] SP [id number] EXCELLUS BCBS P [id number] S [id number] Problems, Conditions, and Diagnoses Code Display Name Description Problem Type Effective Dates Data Source(s) R79.82 [id number] Elevated C-reactive protein (CRP) Prob chris 08/31/2020 12:00:00 AM EST eCW1 ([facility]) H57.12 [id number] Left eye pain Problem 08/31/2020 12:00: 00 AM EST eCW1 ([facility]) F41.9 [id number] Anxiety Problem 07/20/2020 12:00:00 AM ES T eCW1 ([facility]) M17.0 [id number] Primary osteoarthritis of both knees Prob chris 01/19/2020 12:00:00 AM EDT eCW1 ([facility]) M17.0 [id number] Primary osteoarthritis of both knees Prob chris 01/19/2020 12:00:00 AM EDT eCW1 ([facility]) Surgeries/Procedures Procedure Description Date Indications Data Source(s) ECG ROUTINE ECG W/LEAST 12 LDS W/I&R 08/21/2020 12:00: 00 AM EST eCW1 ([facility]) ARTHROCENTESIS ASPIR&/INJECTION MAJOR JT/BURSA 020 12:00:00 AM EDT MEDENT ([facility] ) MRI Lower Extremity Other Than Joint 03/15/2020 12:00: 00 AM EDT MEDENT ([facility] ) RADEX FOOT COMPLETE MINIMUM 3 VIEWS 03/08/2020 12:00:0 0 AM EDT MEDENT ([facility] ) ARTHROCENTESIS ASPIR&/INJECTION MAJOR JT/BURSA 020 12:00:00 AM EDT MEDENT ([facility] ) MRI Lower Extremity Any Joint 02/15/2020 12:00:00 AM E DT MEDENT ([facility] ) RADIOLOGIC EXAM KNEE COMPLETE 4/MORE VIEWS 02/01/2020 12:00:00 AM EDT MEDENT ([facility] ) RIV4 VACC RECOMBINANT DNA IM 09/17/2019 12:00:00 AM ES T eCW1 ([facility]) IMMUNIZATION ADMIN 09/17/2019 12:00:00 AM EST eCW1 ([facility]) Results ID Date Data Source [id number] 09/30/2020 10:00:00 AM EST [facility] Name Value Range Interpretation Code Description Data [facility](s) Supporting Document(s) SARS coronavirus 2 RNA Not Detected [facility] This lab was ordered by [facility] and reported by [facility]. ID Date Data Source PLZ SINUSES COMPLETE 09/04/2020 12:00:00 AM EST eCW1 ([facility]) Name Value Range Interpretation Code Description Data [facility] r[facility]) Supporting Document(s) PLZ SINUSES COMPLETE eCW1 ([facility]) ID Date Data Source ERYTHROCYTE SEDIMENTATION RATE 09/04/2020 12:00:00 AM EST eC W1 ([facility]) Name Value Range Interpretation Code Description Data [facility]) Supporting Document(s) 9 0-30 ERYTHROCYTE SEDIMENTATION RATE eCW1 ([facility]) ID Date Data Source C REACTIVE PROTEIN QUANTITATIV (At [facility]) 09/04/2020 12:00 :00 AM EST eCW1 ([facility]) Name Value Range Interpretation Code Description Data [facility]) Supporting Document(s) 1.57 0.00-0.30 C REACTIVE PROTEIN QUANTI TATIV eCW1 ([facility]) ID Date Data Source CBC with Differential 09/04/2020 12:00:00 AM EST eCW1 ([facility]) Name Value Range Interpretation Code Description Data [facility]) Supporting Document(s) 13.6 4.0-10.0 WHITE BLOOD COUNT eCW1 ([facility]) 86.5 80.0-96.0 MEAN CORPUSCULAR VOLUME e CW1 ([facility]) 48.5 36.0-47.0 HEMATOCRIT eCW1 ([facility]) 14.9 12.0-15.5 HEMOGLOBIN eCW1 ([facility]) 5.61 4.00-5.40 RED BLOOD COUNT eCW1 ([facility]) 30.7 32.0-36.5 MEAN CORPUSCULAR HGB CONC eCW1 ([facility]) 14.9 11.5-14.5 RED CELL DISTRIBUTION WID TH eCW1 ([facility]) 26.6 27.0-33.0 MEAN CORPUSCULAR HEMOGLOB IN eCW1 ([facility]) 349 150-450 PLATELET COUNT, AUTOMATED eCW1 ([facility]) 7.3 0.0-5.0 MONO % eCW1 ([facility]) 62.5 36.0-66.0 NEUTROPHILS % eCW1 ([facility]) 0.4 0.0-1.0 BASO % eCW1 ([facility]) 28.4 24.0-44.0 LYMPH % eCW1 ([facility]) 0.0 0.0-3.0 EOS % eCW1 ([facility]) 1.0 0.0-0.8 MONO # eCW1 ([facility]) 8.5 1.5-8.5 NEUTROPHILS # eCW1 ([facility]) 3.9 1.5-5.0 LYMPH # eCW1 ([facility]) 0.0 0.0-0.5 EOS # eCW1 ([facility]) 0.1 0.0-0.2 BASO # eCW1 ([facility]) ID Date Data Source Basic Metabolic Profile (BMP) 08/21/2020 12:00:00 AM EST eCW 1 ([facility]) Name Value Range Interpretation Code Description Data [facility]) Supporting Document(s) 140 70-100 GLUCOSE, FASTING eCW1 ([facility]) 1.04 0.55-1.30 CREATININE FOR GFR eCW1 ([facility]) 20 7-18 BLOOD UREA NITROGEN eCW1 ([facility]) 58.8 >51 GLOMERULAR FILTRATION RATE eCW 1 ([facility]) 139 136-145 SODIUM LEVEL eCW1 ([facility]) 4.8 3.5-5.1 POTASSIUM SERUM eCW1 ([facility]) 103 98-107 CHLORIDE LEVEL eCW1 ([facility]) 30 21-32 CARBON DIOXIDE LEVEL eCW1 ([facility]) 8.5 8.5-10.1 CALCIUM LEVEL eCW1 ([facility]) ID Date Data Source [id number] 08/21/2020 12:00:00 AM EST eCW1 ([facility]) Name Value Range Interpretation Code Description Data [facility]) Supporting Document(s) Hemoglobin A1c/Hemoglobin.total in Blood 7.0 HEMOGLOBIN A1c eCW1 ([facility]) ID Date Data Source FREE T4 & TSH PANEL 06/30/2020 04:54:25 AM EDT eCW1 ([facility]) Name Value Range Interpretation Code Description Data [facility]) Supporting Document(s) 2.650 eCW1 ([facility]) 1.24 eCW1 ([facility]) Procedure Social History Code Duration Value Status Description Data Source(s ) Smoking 10/03/2020 12:00:00 AM EST Former Smoker completed Former Smoker eCW1 ([facility]) Smoking 08/31/2020 12:00:00 AM EST Former Smoker completed Former Smoker eCW1 ([facility]) Smoking 08/31/2020 12:00:00 AM EST Former Smoker completed Former Smoker eCW1 ([facility]) Smoking 08/31/2020 12:00:00 AM EST Former Smoker completed Former Smoker eCW1 ([facility]) Smoking 08/21/2020 12:00:00 AM EST Former Smoker completed Former Smoker eCW1 ([facility]) Smoking 08/21/2020 12:00:00 AM EST Former Smoker completed Former Smoker eCW1 ([facility]) Smoking 08/21/2020 12:00:00 AM EST Former Smoker completed Former Smoker eCW1 ([facility]) Smoking 07/20/2020 12:00:00 AM EST Former Smoker completed Former Smoker eCW1 ([facility]) Smoking 07/20/2020 12:00:00 AM EST Former Smoker completed Former Smoker eCW1 ([facility]) Smoking 07/20/2020 12:00:00 AM EST Former Smoker completed Former Smoker eCW1 ([facility]) Smoking 03/14/2020 12:00:00 AM EDT Former Smoker completed Former Smoker eCW1 ([facility]) Smoking 03/14/2020 12:00:00 AM EDT Former Smoker completed Former Smoker eCW1 ([facility]) Smoking 03/14/2020 12:00:00 AM EDT Former Smoker completed Former Smoker eCW1 ([facility]) Vital Signs ID Date Data Source UNK Name Value Range Interpretation Code Description Data Source(s) Diastolic blood pressure 80 mm[Hg] 80 mm[Hg] eCW1 ([facility]) Systolic blood pressure 132 mm[Hg] 132 mm[Hg] e CW1 ([facility]) Body temperature 97.5 [degF] 97.5 [degF] eCW1 ( [facility]) Respiratory rate 18 /min 18 /min eCW1 ([facility]) Heart rate 109 /min 109 /min eCW1 ([facility]) Body mass index (BMI) [Ratio] 52.58 kg/m2 52.58 kg/m2 eCW1 ([facility]) Body height [in_i] eCW1 ([facility]) Body weight 313.6 [lb_av] 313.6 [lb_av] eCW1 ([facility]) Diastolic blood pressure 84 mm[Hg] 84 mm[Hg] eCW1 ([facility]) Systolic blood pressure 130 mm[Hg] 130 mm[Hg] e CW1 ([facility]) Body temperature 96.3 [degF] 96.3 [degF] eCW1 ( [facility]) Respiratory rate 18 /min 18 /min eCW1 ([facility]) Heart rate 88 /min 88 /min eCW1 ([facility]) Body mass index (BMI) [Ratio] 51.07 kg/m2 51.07 kg/m2 W1 ([facility]) Body height [in_i] eCW1 ([facility]) Body weight 138.1 kg 138.1 kg eCW1 ([facility]) Body weight 304.6 [lb_av] 304.6 [lb_av] eCW1 ([facility]) Diastolic blood pressure 82 mm[Hg] 82 mm[Hg] eCW1 ([facility]) Systolic blood pressure 150 mm[Hg] 150 mm[Hg] e CW1 ([facility]) Body temperature 96.6 [degF] 96.6 [degF] eCW1 ( [facility]) Respiratory rate 18 /min 18 /min eCW1 ([facility]) Heart rate 103 /min 103 /min eCW1 ([facility]) Body mass index (BMI) [Ratio] 50.81 kg/m2 50.81 kg/m2 eCW1 ([facility]) Body height [in_i] eCW1 ([facility]) Body weight 303 [lb_av] 303 [lb_av] eCW1 ([facility]) Diastolic blood pressure 78 mm[Hg] 78 mm[Hg] eCW1 ([facility]) Systolic blood pressure 138 mm[Hg] 138 mm[Hg] e CW1 ([facility]) Body temperature 96.8 [degF] 96.8 [degF] eCW1 ( [facility]) Respiratory rate 18 /min 18 /min eCW1 ([facility]) Heart rate 98 /min 98 /min eCW1 ([facility]) Body mass index (BMI) [Ratio] 49.80 kg/m2 49.80 kg/m2 eCW1 ([facility]) Body height [in_i] eCW1 ([facility]) Body weight 297 [lb_av] 297 [lb_av] eCW1 ([facility]) Diastolic blood pressure 72 mm[Hg] 72 mm[Hg] eCW1 ([facility]) Systolic blood pressure 124 mm[Hg] 124 mm[Hg] e CW1 ([facility]) Body temperature 97.1 [degF] 97.1 [degF] eCW1 ( [facility]) Respiratory rate 18 /min 18 /min eCW1 ([facility]) Heart rate 86 /min 86 /min eCW1 ([facility]) Body mass index (BMI) [Ratio] 45.98 kg/m2 45.98 kg/m2 eCW1 ([facility]) Body height [in_i] eCW1 ([facility]) Body weight 274.2 [lb_av] 274.2 [lb_av] eCW1 ([facility]) Body mass index (BMI) [Ratio] 45.0 kg/m2 45.0 k g/m2 MEDENT ([facility]) Body weight 262.00 [lb_av] 262.00 [lb_av] MEDEN T ([facility]) Body height 64 [in_i] 64 [in_i] MEDENT ([facility]) 5'4" Body temperature 97.2 [degF] 97.2 [degF] MEDENT ([facility]) Diastolic blood pressure 86 mm[Hg] 86 mm[Hg] eCW1 ([facility]) Systolic blood pressure 128 mm[Hg] 128 mm[Hg] e CW1 ([facility]) Body temperature 97.7 [degF] 97.7 [degF] eCW1 ( [facility]) Respiratory rate 16 /min 16 /min eCW1 ([facility]) Heart rate 81 /min 81 /min eCW1 ([facility]) Body mass index (BMI) [Ratio] 45.54 kg/m2 45.54 kg/m2 eCW1 ([facility]) Body height [in_us] eCW1 ([facility]) Body weight Measured 271.6 [lb_av] 271.6 [lb_av ] eCW1 ([facility]) Diastolic blood pressure 80 mm[Hg] 80 mm[Hg] eCW1 ([facility]) Systolic blood pressure 128 mm[Hg] 128 mm[Hg] e CW1 ([facility]) Body temperature 98.0 [degF] 98.0 [degF] eCW1 ( [facility]) Respiratory rate 18 /min 18 /min eCW1 ([facility]) Heart rate 83 /min 83 /min eCW1 ([facility]) Body mass index (BMI) [Ratio] 43.60 kg/m2 43.60 kg/m2 eCW1 ([facility]) Body height [in_us] eCW1 ([facility]) Body weight Measured 260 [lb_av] 260 [lb_av] eC W1 ([facility]) Diastolic blood pressure 60 mm[Hg] 60 mm[Hg] eCW1 ([facility]) Systolic blood pressure 120 mm[Hg] 120 mm[Hg] e CW1 ([facility]) Body temperature 97.7 [degF] 97.7 [degF] eCW1 ( [facility]) Respiratory rate 18 /min 18 /min eCW1 ([facility]) Heart rate 80 /min 80 /min eCW1 ([facility]) Body mass index (BMI) [Ratio] 44.23 kg/m2 44.23 kg/m2 eCW1 ([facility]) Body height [in_us] eCW1 ([facility]) Body weight Measured 263.8 [lb_av] 263.8 [lb_av ] eCW1 ([facility]) Patient Treatment Plan of Care Planned Activity Planned Date Details Description Data Source (s) Vitamin B12 1000 MCG 10/03/2020 12:00:00 AM EST eCW1 ([facility]) Prednisone 5 MG Oral Tablet 08/31/2020 12:00:00 AM EST eCW1 ([facility]) Prednisone 5 MG Oral Tablet 08/31/2020 12:00:00 AM EST eCW1 ([facility]) Prednisone 5 MG Oral Tablet 08/31/2020 12:00:00 AM EST eCW1 ([facility]) 24 HR Metformin hydrochloride 500 MG Extended Release Oral Tablet 08/21/2020 12:00:00 AM EST eCW1 ([facility]) Famotidine 40 MG Oral Tablet 08/21/2020 12:00:00 AM EST eCW1 ([facility]) 24 HR Metformin hydrochloride 500 MG Extended Release Oral Tablet 08/21/2020 12:00:00 AM EST eCW1 ([facility]) Famotidine 40 MG Oral Tablet 08/21/2020 12:00:00 AM EST eCW1 ([facility]) 24 HR Metformin hydrochloride 500 MG Extended Release Oral Tablet 08/21/2020 12:00:00 AM EST eCW1 ([facility]) Famotidine 40 MG Oral Tablet 08/21/2020 12:00:00 AM EST eCW1 ([facility]) Hydroxyzine Hydrochloride 25 MG Oral Tablet 07/20/2020 12:00:00 AM EST eCW1 ([facility]) Hydroxyzine Hydrochloride 25 MG Oral Tablet 07/20/2020 12:00:00 AM EST eCW1 ([facility]) Hydroxyzine Hydrochloride 25 MG Oral Tablet 07/20/2020 12:00:00 AM EST eCW1 ([facility]) Prednisone 20 MG Oral Tablet 06/23/2020 12:00:00 AM EDT eCW1 ([facility]) Prednisone 20 MG Oral Tablet 06/23/2020 12:00:00 AM EDT eCW1 ([facility]) Prednisone 20 MG Oral Tablet 06/23/2020 12:00:00 AM EDT eCW1 ([facility]) Prednisone 20 MG Oral Tablet 06/23/2020 12:00:00 AM EDT eCW1 ([facility]) Prednisone 20 MG Oral Tablet 06/23/2020 12:00:00 AM EDT eCW1 ([facility]) Prednisone 20 MG Oral Tablet 06/23/2020 12:00:00 AM EDT eCW1 ([facility]) Prednisone 20 MG Oral Tablet 06/23/2020 12:00:00 AM EDT eCW1 ([facility]) Prednisone 20 MG Oral Tablet 06/23/2020 12:00:00 AM EDT eCW1 ([facility]) Prednisone 20 MG Oral Tablet 06/23/2020 12:00:00 AM EDT eCW1 ([facility]) Flexeril 10 mg 30 10 mg 12/29/2019 12:00:00 AM EDT eCW1 ([facility])
[~2020-10-05 11:10] MED LIST changes: +LR 1,000 ML IV ONE; +SCOPOLAMINE 1MG TRANSDERMAL PATCH TOP ONE; +ceFAZolin SOD 2 GM in IV 1 EA IV ONE
--- OUTSIDE RECORDS SUMMARY | 2020-10-05 11:16 | CCD ---
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 Name Role Phone Jeff Rene MD Unavailable [...] Unavailable Unavailable Jeff Rene MD Unavailable Unavailable Jfef Rene MD Unavailable Unavailable Jeff Rene MD [...] Rene, Jeff Cornejo MD Unavailable Unavailable Fish, [facility], PA-C Unavailable Unavailabl e Fish, [facility], PA-C Unavailable Unavailabl e Fish, [facility], PA-C Unavailable Unavailabl e Fish, [facility], PA-C Unavailable Unavailabl e Fish, [facility], PA-C Unavailable Unavailabl e Fish, [facility], PA-C Unavailable Unavailabl e Fish, [facility], PA-C Unavailable Unavailabl e Fish, [facility], PA-C Unavailable Unavailabl e Fish, [facility], PA-C Unavailable Unavailabl e Fish, [facility], PA-C Unavailable Unavailabl e Fish, [facility], PA-C Unavailable Unavailabl e Fish, [facility], PA-C Unavailable Unavailabl e Fish, [facility], PA-C Unavailable Unavailabl e Fish, [facility], PA-C Unavailable Unavailabl e Fish, [facility], PA-C Unavailable Unavailabl e Fish, [facility], PA-C Unavailable Unavailabl e Fish, [facility], PA-C Unavailable Unavailabl e Fish, [facility], PA-C Unavailable Unavailabl e Fish, [facility], PA-C Unavailable Unavailabl e Fish, [facility], PA-C Unavailable Unavailabl e Fish, [facility], PA-C Unavailable Unavailabl e Fish, [facility], PA-C Unavailable Unavailabl e Fish, [facility], PA-C Unavailable Unavailabl e Fish, [facility], PA-C Unavailable Unavailabl e Fish, [facility], PA-C Unavailable Unavailabl e Fish, [facility], PA-C Unavailable Unavailabl e Fish, [facility], PA-C Unavailable Unavailabl e Fish, [facility], PA-C Unavailable Unavailabl e Fish, [facility], PA-C Unavailable Unavailabl e Fish, [facility], PA-C Unavailable Unavailabl e Fish, [facility], PA-C Unavailable Unavailabl e Fish, [facility], PA-C Unavailable Unavailabl e Fish, [facility], PA-C Unavailable Unavailabl e Fish, [facility], PA-C Unavailable Unavailabl e Fish, [facility], PA-C Unavailable Unavailabl e Fish, [facility], PA-C Unavailable Unavailabl e Fish, [facility], PA-C Unavailable Unavailabl e Fish, [facility], PA-C Unavailable Unavailabl e Fish, [facility], PA-C Unavailable Unavailabl e Fish, [facility], PA-C Unavailable Unavailabl e Fish, [facility], PA-C Unavailable Unavailabl e Fish, [facility], PA-C Unavailable Unavailabl e Fish, [facility], PA-C Unavailable Unavailabl e Fish, [facility], PA-C Unavailable Unavailabl e Fish, [facility], PA-C Unavailable Unavailabl e Fish, [facility], PA-C Unavailable Unavailabl e Fish, [facility], PA-C Unavailable Unavailabl e Fish, [facility], PA-C Unavailable Unavailabl e Fish, [facility], PA-C Unavailable Unavailabl e Fish, [facility], PA-C Unavailable Unavailabl e Fish, [facility], PA-C Unavailable Unavailabl e Fish, [facility], PA-C Unavailable Unavailabl e Fish, [facility], PA-C Unavailable Unavailabl e Fish, [facility], PA-C Unavailable Unavailabl e Fish, [facility], PA-C Unavailable Unavailabl e Fish, [facility], PA-C Unavailable Unavailabl e Fish, [facility], PA-C Unavailable Unavailabl e Fish, Maureen Mukherjee MPAS, PA-C Unavailable Unavailabl e Fish, Maureen Mukherjee MPAS, PA-C Unavailable Unavailabl e Fish, Maureen Mukherjee MPAS, PA-C Unavailable Unavailabl e Fish, Maureen Mukherjee MPAS, PA-C Unavailable Unavailabl e Fish, Maureen Mukherjee MPAS, PA-C Unavailable Unavailabl e Fish, Maureen Mukherjee [facility], PA-C Unavailable Unavailabl e Fish, Maureen Mukherjee [...] is protected by Article 27-F of the [facility] Public Health law. If you continue you may have access to information: Regarding HIV / AIDS; Provided by facilities licensed or operated by the [facility] Office of Mental Health; or Provided by the [facility] Office for People With Developmental Disabilities. If such information is present, then the following [facility] mandated warning applies: This information has been [...] law may result in a fine or chcf sentence or both. A general authorization for the release of medical or other information is NOT sufficient authorization for further disc losure. Allergies and Adverse Reactions Type Description Substance Reaction Status Data Source(s ) codeine Codeine Sulfate Codeine RASH/HIVES Active eCW1 ([facility]) Codeine Sulfate Codeine Sulfate Codeine Sulfate RASH/HIVES Active eCW1 ([facility]) Family History Family Member Name Family Member Gender Family Member Status Date o f Status Description Data Source(s) Unknown Male Problem MEDENT ([facility]) Encounters Encounter Providers Location Date Indications Data Source(s ) Out[place] [address] [facility] [place] [address] 10/03/2020 12:00:00 AM EST eCW1 ([facility]) Unknown [address] [facility] [place] [address] 09/06/2020 12:00:00 AM EST eCW1 ([facility]) Outpatient [address] [facility] [place] [address] 08/31/2020 12:00:00 AM EST eCW1 ([facility]) [place]patient [address] [facility] [place] [address] 08/21/2020 12:00:00 AM EST eCW1 ([facility]) [place] [address] [facility] [place] [address] 08/21/2020 12:00:00 AM EST eCW1 ([facility]) Unknown [address] [facility] [address] 08/01/2020 12:00:00 AM EST eCW1 ([facility]) [place] [address] [facility] [address] 07/31/2020 12:00:00 AM EST eCW1 ([facility]) [place] [address] [facility] [address] 07/31/2020 12:00:00 AM EST eCW1 ([facility]) [place] [address] [facility] [place] [address] 07/20/2020 12:00:00 AM EST eCW1 ([facility]) Unknown [address] [facility] [address] 07/12/2020 12:00:00 AM EDT eCW1 ([facility]) [place] [address] [facility] [address] 06/27/2020 12:00:00 AM EDT eCW1 ([facility]) Unknown [address] [facility] [address] 06/23/2020 12:00:00 AM EDT eCW1 ([facility]) Outpatient Attender: Yaz ZAMORA PA-C Physical Therapy 06/09/2020 10:30:00 AM EDT MEDENT ([facility]) Outpatient Attender: Yaz ZAMORA PA-C Physical Therapy 03/31/2020 02:30:00 PM EDT MEDENT ([facility]) Outpatient Attender: GARRY ROMERO MD Physical Therapy 09:15:00 AM EDT MEDENT ([facility]) [place] [address] [facility] [place] [address] 03/14/2020 12:00:00 AM EDT eCW1 ([facility]) Outpatient Attender: GARRY ROMERO MD Physical Therapy 01:00:00 PM EDT MEDENT ([facility]) Outpatient Attender: Yaz ZAMORA PA-C Physical Therapy 03/01/2020 11:00:00 AM EDT MEDENT ([facility]) Outpatient Referrer: Yaz ZAMORA [...] Physical Therapy 02/01/2020 03:00:00 PM EDT MEDENT ([facility]) [facility] [address] [place] [address] 01/19/2020 12:00:00 AM EDT eCW1 ([facility]) [facility] [address] [place] [address], [place] [address] 01/19/2020 12:00:00 AM EDT eCW1 ([facility]) [facility] [address] [facility] [address] 01/07/2020 12:00:00 AM EDT eCW1 ([facility]) [facility] [address] [facility] [address] 12/29/2019 12:00:00 AM EDT [facility]CW1 ([facility] [place] [address] [facility] [address] 11/03/2019 12:00:00 AM EST eCW1 ([facility]) [address] [address] 09/17/2019 12:00:00 AM EST eCW1 ([facility]) [address] [address] 09/17/2019 12:00:00 AM EST eCW1 ([facility]) [address] [address] 09/01/2019 12:00:00 AM EST eCW1 ([facility]) Immunizations Vaccine Date Status Description Data Source(s) influenza, recombinant, quadrIvalent,injectable, prese rvative free 09/17/2019 04:08:00 PM EST completed eCW1 ([facility]) influenza, recombinant, quadrIvalent,injectable, prese rvative free 09/17/2019 04:08:00 PM EST completed eCW1 ([facility]) influenza, recombinant, quadrIvalent,injectable, prese rvative free 09/17/2019 04:08:00 PM EST completed eCW1 ([facility]) influenza, recombinant, quadrIvalent,injectable, prese rvative free 09/17/2019 04:08:00 PM EST completed eCW1 ([facility]) influenza, recombinant, quadrIvalent,injectable, prese rvative free 09/17/2019 04:08:00 PM EST completed eCW1 ([facility]) influenza, recombinant, quadrIvalent,injectable, prese rvative free 09/17/2019 04:08:00 PM EST completed eCW1 ([facility]) influenza, recombinant, quadrIvalent,injectable, prese rvative free 09/17/2019 04:08:00 PM EST completed eCW1 ([facility]) influenza, recombinant, quadrIvalent,injectable, prese rvative free 09/17/2019 04:08:00 PM EST completed eCW1 ([facility]) influenza, recombinant, quadrIvalent,injectable, prese rvative free 09/17/2019 04:08:00 PM EST completed eCW1 ([facility]) influenza, recombinant, quadrIvalent,injectable, prese rvative free 09/17/2019 04:08:00 PM EST completed eCW1 ([facility]) influenza, recombinant, quadrIvalent,injectable, prese rvative free 09/17/2019 04:08:00 PM EST completed eCW1 ([facility]) influenza, recombinant, quadrIvalent,injectable, prese rvative free 09/17/2019 04:08:00 PM EST completed eCW1 ([facility]) influenza, recombinant, quadrIvalent,injectable, prese rvative free 09/17/2019 04:08:00 PM EST completed eCW1 ([facility]) influenza, recombinant, quadrIvalent,injectable, prese rvative free 09/17/2019 04:08:00 PM EST completed eCW1 ([facility]) Medications Medication Brand Name Start Date Product Form Dose Route Admi nistrative Instructions Pharmacy Instructions Status Indications Reaction Description Data Source(s) Vitamin B12 1000 MCG Vitamin B12 1000 MCG 10/03/2020 12:00:00 AM ES T 1.0 {tablet} active Vitamin B12 1000 MCG eC W1 ([facility]) Prednisone 5 MG Oral Tablet PredniSONE 5 MG PredniSONE 5 MG 08/31/2020 12:00:00 AM EST 3.0 {tablet} active PredniSONE 5 MG eCW1 ([facility]) 5 mg 08/31/2020 12:00:00 AM EST tablet 90 TAKE THREE TABLETS BY MOUTH EVERY DAY WITH FOOD TAKE THREE TABLETS BY MOUTH EVERY DAY WITH FOOD SOLD: 2019 [facility] Prednisone 5 MG Oral Tablet PredniSONE 5 MG PredniSONE 5 MG 08/31/2020 12:00:00 AM EST 3.0 {tablet} active PredniSONE 5 MG eCW1 ([facility]) Prednisone 5 MG Oral Tablet PredniSONE 5 MG PredniSONE 5 MG 08/31/2020 12:00:00 AM EST 3.0 {tablet} active PredniSONE 5 MG eCW1 ([facility]) Famotidine 40 MG Oral Tablet FAMOTIDINE 08/22/2020 [...] MetF ORMIN HCl ER 500 MG eCW1 ([facility]) 24 HR Metformin hydrochloride 500 MG Ext ended Release Oral Tablet MetFORMIN HCl ER 500 MG MetFORMIN HCl ER 500 MG 08/21/2020 12:00:00 AM EST 2.0 {tablets_with_evening_meal} active MetF ORMIN HCl ER 500 MG eCW1 ([facility]) Famotidine 40 MG Oral Tablet Famotidine 40 MG 08/21/2020 12:00:00 A M EST 1.0 {tablet_at_bedtime} active Famotidine 4 0 MG eCW1 ([facility]) Famotidine 40 MG Oral Tablet Famotidine 40 MG 08/21/2020 12:00:00 A M EST 1.0 {tablet_at_bedtime} active Famotidine 4 0 MG eCW1 ([facility]) Famotidine 40 MG Oral Tablet Famotidine 40 MG 08/21/2020 12:00:00 A M EST 1.0 {tablet_at_bedtime} active Famotidine 4 0 MG eCW1 ([facility]) Famotidine 40 MG Oral Tablet Famotidine 40 MG 08/21/2020 12:00:00 A M EST 1.0 {tablet_at_bedtime} active Famotidine 4 0 MG eCW1 ([facility]) 24 HR Metformin hydrochloride 500 MG Ext ended Release Oral Tablet MetFORMIN HCl ER 500 MG MetFORMIN HCl ER 500 MG 08/21/2020 12:00:00 AM EST 2.0 {tablets_with_evening_meal} active MetF ORMIN HCl ER 500 MG eCW1 ([facility]) Famotidine 40 MG Oral Tablet Famotidine 40 MG 08/21/2020 12:00:00 A M EST 1.0 {tablet_at_bedtime} active Famotidine 4 0 MG eCW1 ([facility]) Famotidine 40 MG Oral Tablet Famotidine 40 MG 08/21/2020 12:00:00 A M EST 1.0 {tablet_at_bedtime} active Famotidine 4 0 MG eCW1 ([facility]) 24 HR Metformin hydrochloride 500 MG Ext ended Release Oral Tablet MetFORMIN HCl ER 500 MG MetFORMIN HCl ER 500 MG 08/21/2020 12:00:00 AM EST 2.0 {tablets_with_evening_meal} active MetF ORMIN HCl ER 500 MG eCW1 ([facility]) 24 HR Metformin hydrochloride 500 MG Ext ended Release Oral Tablet MetFORMIN HCl ER 500 MG MetFORMIN HCl ER 500 MG 08/21/2020 12:00:00 AM EST 2.0 {tablets_with_evening_meal} active MetF ORMIN HCl ER 500 MG eCW1 ([facility]) 24 HR Metformin hydrochloride 500 MG Ext ended Release Oral Tablet MetFORMIN HCl ER 500 MG MetFORMIN HCl ER 500 MG 08/21/2020 12:00:00 AM EST 2.0 {tablets_with_evening_meal} active MetF ORMIN HCl ER 500 MG eCW1 ([facility]) Famotidine 40 MG Oral Tablet Famotidine 40 MG 08/21/2020 12:00:00 A M EST 1.0 {tablet_at_bedtime} active Famotidine 4 0 MG eCW1 ([facility]) 24 HR Metformin hydrochloride 500 MG Ext ended Release Oral Tablet MetFORMIN HCl ER 500 MG MetFORMIN HCl ER 500 MG 08/21/2020 12:00:00 AM EST 2.0 {tablets_with_evening_meal} active MetF ORMIN HCl ER 500 MG eCW1 ([facility]) 20 mg 07/31/2020 12:00:00 AM EST tablet [...] EST active HydrOXYzine HCl 25 MG eCW1 ([facility]) Hydroxyzine Hydrochloride 25 MG Oral Tablet HydrOXYzin e HCl 25 MG HydrOXYzine HCl 25 MG 07/20/2020 12:00:00 AM EST active HydrOXYzine HCl 25 MG eCW1 ([facility]) Hydroxyzine Hydrochloride 25 MG Oral Tablet HydrOXYzin e HCl 25 MG HydrOXYzine HCl 25 MG 07/20/2020 12:00:00 AM EST active HydrOXYzine HCl 25 MG eCW1 ([facility]) Hydroxyzine Hydrochloride 25 MG Oral Tablet HydrOXYzin e HCl 25 MG HydrOXYzine HCl 25 MG 07/20/2020 12:00:00 AM EST active HydrOXYzine HCl 25 MG eCW1 ([facility]) Hydroxyzine Hydrochloride 25 MG Oral Tablet HydrOXYzin e HCl 25 MG HydrOXYzine HCl 25 MG 07/20/2020 12:00:00 AM EST active HydrOXYzine HCl 25 MG eCW1 ([facility]) Hydroxyzine Hydrochloride 25 MG Oral Tablet HydrOXYzin e HCl 25 MG HydrOXYzine HCl 25 MG 07/20/2020 12:00:00 AM EST active HydrOXYzine HCl 25 MG eCW1 ([facility]) Hydroxyzine Hydrochloride 25 MG Oral Tablet HydrOXYzin e HCl 25 MG HydrOXYzine HCl 25 MG 07/20/2020 12:00:00 AM EST active HydrOXYzine HCl 25 MG eCW1 ([facility]) Hydroxyzine Hydrochloride 25 MG Oral Tablet HydrOXYzin e HCl 25 MG HydrOXYzine HCl 25 MG 07/20/2020 12:00:00 AM EST active HydrOXYzine HCl 25 MG eCW1 ([facility]) Hydroxyzine Hydrochloride 25 MG Oral Tablet HydrOXYzin e HCl 25 MG HydrOXYzine HCl 25 MG 07/20/2020 12:00:00 AM EST active HydrOXYzine HCl 25 MG eCW1 ([facility]) Hydroxyzine Hydrochloride 25 MG Oral Tablet HydrOXYzin e HCl 25 MG HydrOXYzine HCl 25 MG 07/20/2020 12:00:00 AM EST active HydrOXYzine HCl 25 MG eCW1 ([facility]) 20 mg 07/13/2020 12:00:00 AM EDT tablet [...] {tablet} active Pr edniSONE 20 MG eCW1 ([facility]) Prednisone 20 MG Oral Tablet PredniSONE 20 MG PredniSONE 20 MG 06/23/2020 12:00:00 AM EDT 2.0 {tablet} active Pr edniSONE 20 MG eCW1 ([facility]) Prednisone 20 MG Oral Tablet PredniSONE 20 MG PredniSONE 20 MG 06/23/2020 12:00:00 AM EDT 2.0 {tablet} active Pr edniSONE 20 MG eCW1 ([facility]) Prednisone 5 MG Oral Tablet PredniSONE 5 MG PredniSONE 5 MG 06/23/2020 12:00:00 AM EDT active PredniSONE 5 MG e CW1 ([facility]) Prednisone 20 MG Oral Tablet PredniSONE 20 MG PredniSONE 20 MG 06/23/2020 12:00:00 AM EDT 2.0 {tablet} active Pr edniSONE 20 MG eCW1 ([facility]) Prednisone 20 MG Oral Tablet PredniSONE 20 MG PredniSONE 20 MG 06/23/2020 12:00:00 AM EDT 2.0 {tablet} active Pr edniSONE 20 MG eCW1 ([facility]) Prednisone 20 MG Oral Tablet PredniSONE 20 MG PredniSONE 20 MG 06/23/2020 12:00:00 AM EDT 2.0 {tablet} active Pr edniSONE 20 MG eCW1 ([facility]) Prednisone 20 MG Oral Tablet PredniSONE 20 MG PredniSONE 20 MG 06/23/2020 12:00:00 AM EDT 2.0 {tablet} active Pr edniSONE 20 MG eCW1 ([facility]) 20 mg 06/23/2020 12:00:00 AM EDT tablet 28 TAKE TWO TABLETS BY MOUTH EVERY DAY TAKE TWO TABLETS BY MOUTH EVERY DAY SOLD: 06/23/2020 [facility] Prednisone 20 MG Oral Tablet PredniSONE 20 MG PredniSONE 20 MG 06/23/2020 12:00:00 AM EDT 2.0 {tablet} active Pr edniSONE 20 MG eCW1 ([facility]) Prednisone 20 MG Oral Tablet PredniSONE 20 MG PredniSONE 20 MG 06/23/2020 12:00:00 AM EDT 2.0 {tablet} active Pr edniSONE 20 MG eCW1 ([facility]) Prednisone 20 MG Oral Tablet PredniSONE 20 MG PredniSONE 20 MG 06/23/2020 12:00:00 AM EDT 2.0 {tablet} active Pr edniSONE 20 MG eCW1 ([facility]) Prednisone 20 MG Oral Tablet PredniSONE 20 MG PredniSONE 20 MG 06/23/2020 12:00:00 AM EDT 2.0 {tablet} active Pr edniSONE 20 MG eCW1 ([facility]) Prednisone 20 MG Oral Tablet PredniSONE 20 MG PredniSONE 20 MG 06/23/2020 12:00:00 AM EDT 2.0 {tablet} active Pr edniSONE 20 MG eCW1 ([facility]) 25 mg 05/30/2020 12:00:00 AM EDT tablet [...] [Medrol] Medrol 12:00:00 AM EDT completed MEDENT ([facility]) 4 mg 02/01/2020 12:00:00 AM [...] Flexeril 10 mg 30 10 mg eCW1 ([facility]) Flexeril 10 mg 30 10 mg UNK 12/29/2019 12:00:00 AM EDT active Flexeril 10 mg 30 10 mg eCW1 ([facility]) Flexeril 10 mg 30 10 mg UNK 12/29/2019 12:00:00 AM EDT active Flexeril 10 mg 30 10 mg eCW1 ([facility]) Flexeril 10 mg 30 10 mg UNK 12/29/2019 12:00:00 AM EDT active one tablet eCW1 ([facility]) Flexeril 10 mg 30 10 mg UNK 12/29/2019 12:00:00 AM EDT active Flexeril 10 mg 30 10 mg eCW1 ([facility]) Flexeril 10 mg 30 10 mg UNK 12/29/2019 12:00:00 AM EDT active Flexeril 10 mg 30 10 mg eCW1 ([facility]) Flexeril 10 mg 30 10 mg UNK 12/29/2019 12:00:00 AM EDT active one tablet eCW1 ([facility]) Flexeril 10 mg 30 10 mg UNK 12/29/2019 12:00:00 AM EDT active Flexeril 10 mg 30 10 mg eCW1 ([facility]) Cyclobenzaprine hydrochloride 10 MG Oral Tablet CYCLOBENZAPR INE HCL 12/29/2019 12:00:00 AM EDT tablet 30 TAKE ONE TABLET BY MOUTH AT BEDTIME TAKE ONE TABLET BY MOUTH AT BEDTIME SOLD: 01/04/2020 [facility] Flexeril 10 mg 30 10 mg UNK 12/29/2019 12:00:00 AM EDT active Flexeril 10 mg 30 10 mg eCW1 ([facility]) Flexeril 10 mg 30 10 mg UNK 12/29/2019 12:00:00 AM EDT active Flexeril 10 mg 30 10 mg eCW1 ([facility]) Flexeril 10 mg 30 10 mg UNK 12/29/2019 12:00:00 AM EDT active Flexeril 10 mg 30 10 mg eCW1 ([facility]) 875-125 mg 11/18/2019 12:00:00 AM EST tablet [...] MORNING O N EMPTY STOMACH SOLD: 12/03/2019 [facility] 50 mcg 05/06/2019 12:00:00 [...] relationship to anderson Policy [place] Plan Information [facility] COMMUNITY PLAN [facility] [id number] SP [id number] [facility]US [id number] SP [id number] [facility] COMMUNITY PLAN [facility] [id number] SP [id number] [facility] O [id number] S [id number] BCBS [facility] [id number] SP [id number] BCBS OF [place] 306/806 [id number] SP [id number] [facility] [id number] SP [id number] BCBS [facility] [id number] SP [id number] ANSI-Commercial [id number] ANSI-Commercial [id number] ANSI-Commercial [id number] [place] 306/[id number] SP [id number] ANSI-Commercial [id number] [facility] Plan Medigap Part B [id number] Self [id number] [facility] [place] Commercial [id number] Self [id number] [facility] Medigap Part B [id number] Self [id number] [facility] Medigap Part B [id number] Self [id number] [employer] [place] Commercial [id number] Self [id number] ANSI-Commercial [id number] ANSI-Commercial [id number] ANSI-Commercial [id number] ANSI-Commercial [id number] ANSI-Commercial [id number] ANSI-Commercial [id number] ANSI-Commercial [id number] ANSI-Commercial [id number] ANSI-Commercial [id number] O BLUE [id number] SP [id number] ANSI-Commercial [id number] ANSI-Commercial [id number] ANSI-Commercial [id number] ANSI-Commercial [id number] ANSI-Commercial [id number] [employer] P [id number] SELF [id number] [employer] Blue [employer] P [id number] SELF [id number] [facility] Plan Medigap Part B [id number] Self [id number] [employer] [place] Commercial [id number] Self [id number] [facility] Community Plan Medigap Part B [id number] Self [id number] [facility] [place] Commercial [id number] Self [id number] [facility] Community Plan Medigap Part B [id number] Self [id number] [place] [employer] [id number] Self [id number] [facility] Plan Medigap Part B [id number] Self [id number] [employer] [place] [employer] [id number] Self [id number] [place]/307 [id number] SP [id number] [facility] Community Plan Medigap Part B [id number] Self [id number] [employer] [place] [employer] [id number] Self [id number] [facility] Plan Medigap Part B [id number] Self [id number] [employer] [place] [employer] [id number] Self [id number] [facility] Plan Medigap Part B [id number] Self [id number] [employer] [place] [employer] [id number] Self [id number] EXCE[employer]US BCBS B [id number] S YNC [id number] SELF PAY ONLY UNAVAILABLE UNAV AILABLE [employer] BCBS B [id number] S YNC [id number] [place]/307 [id number] SP [id number] [employer] BCBS B [id number] S W [id number] [place]/307 [id number] SP [id number] HMO BLUE [id number] SP [id number] [employer]BS P [id number] S [id number] Problems, Conditions, and Diagnoses Code Display Name Description Problem Type Effective Dates Data Source(s) R79.82 [id number] Elevated C-reactive protein (CRP) Prob chris 08/31/2020 12:00:00 AM EST eCW1 ([facility]) H57.12 [id number] Left eye pain Problem 08/31/2020 12:00: 00 AM EST eCW1 ([facility]) F41.9 [id number] Anxiety Problem 07/20/2020 12:00:00 AM ES T eCW1 ([facility]) M17.0 [id number] Primary osteoarthritis of both knees Prob chris 01/19/2020 12:00:00 AM EDT eCW1 ([facility]) M17.0 [id number] Primary osteoarthritis of both knees Prob chris 01/19/2020 12:00:00 AM EDT eCW1 ([facility]) Surgeries/Procedures Procedure Description Date Indications Data Source(s) ECG ROUTINE ECG W/LEAST 12 LDS W/I&R 08/21/2020 12:00: 00 AM EST eCW1 ([facility]) ARTHROCENTESIS ASPIR&/INJECTION MAJOR JT/BURSA 020 12:00:00 AM EDT MEDENT ([facility] ) MRI Lower Extremity Other Than Joint 03/15/2020 12:00: 00 AM EDT MEDENT ([facility] ) RADEX FOOT COMPLETE MINIMUM 3 VIEWS 03/08/2020 12:00:0 0 AM EDT MEDENT ([facility] ) ARTHROCENTESIS ASPIR&/INJECTION MAJOR JT/BURSA 020 12:00:00 AM EDT MEDENT ([facility] ) MRI Lower Extremity Any Joint 02/15/2020 12:00:00 AM E DT MEDENT ([facility] ) RADIOLOGIC EXAM KNEE COMPLETE 4/MORE VIEWS 02/01/2020 12:00:00 AM EDT MEDENT ([facility] ) RIV4 VACC RECOMBINANT DNA IM 09/17/2019 12:00:00 AM ES T eCW1 ([facility]) IMMUNIZATION ADMIN 09/17/2019 12:00:00 AM EST eCW1 ([facility]) Results ID Date Data Source [id number] 09/30/2020 10:00:00 AM EST [facility] Name Value Range Interpretation Code Description Data [facility] rce(s) Supporting Document(s) SARS coronavirus 2 RNA Not Detected [facility] [place] This lab was ordered by [facility] and reported by [facility]. ID Date Data Source PLZ SINUSES COMPLETE 09/04/2020 12:00:00 AM EST eCW1 ([facility]) Name Value Range Interpretation Code Description Data [facility] rce(s) Supporting Document(s) PLZ SINUSES COMPLETE eCW1 ([facility]) ID Date Data Source ERYTHROCYTE SEDIMENTATION RATE 09/04/2020 12:00:00 AM EST eC W1 ([facility]) Name Value Range Interpretation Code Description Data [facility] r[facility](s) Supporting Document(s) 9 0-30 ERYTHROCYTE SEDIMENTATION RATE eCW1 ([facility]) ID Date Data Source C REACTIVE PROTEIN QUANTITATIV (At [facility]) 09/04/2020 12:00 :00 AM EST eCW1 ([facility]) Name Value Range Interpretation Code Description Data [facility] r[facility](s) Supporting Document(s) 1.57 0.00-0.30 C REACTIVE PROTEIN QUANTI TATIV eCW1 ([facility]) ID Date Data Source CBC with Differential 09/04/2020 12:00:00 AM EST eCW1 ([facility]) Name Value Range Interpretation Code Description Data [facility] r[facility](s) Supporting Document(s) 13.6 4.0-10.0 WHITE BLOOD COUNT eCW1 ([facility]) 86.5 80.0-96.0 MEAN CORPUSCULAR VOLUME e CW1 ([facility]) 48.5 36.0-47.0 HEMATOCRIT eCW1 ([facility]) 14.9 12.0-15.5 HEMOGLOBIN eCW1 ([facility]) 5.61 4.00-5.40 RED BLOOD COUNT eCW1 ([facility]) 30.7 32.0-36.5 MEAN CORPUSCULAR HGB CONC eCW1 ([facility]) 14.9 11.5-14.5 RED CELL DISTRIBUTION WID TH eCW1 ([facility]) 26.6 27.0-33.0 MEAN CORPUSCULAR HEMOGLOB IN eCW1 ([facility]) 349 150-450 PLATELET COUNT, AUTOMATED eCW1 ([facility]) 7.3 0.0-5.0 MONO % eCW1 ([facility]) 62.5 36.0-66.0 NEUTROPHILS % eCW1 ([facility]) 0.4 0.0-1.0 BASO % eCW1 ([facility]) 28.4 24.0-44.0 LYMPH % eCW1 ([facility]) 0.0 0.0-3.0 EOS % eCW1 ([facility]) 1.0 0.0-0.8 MONO # eCW1 ([facility]) 8.5 1.5-8.5 NEUTROPHILS # eCW1 ([facility]) 3.9 1.5-5.0 LYMPH # eCW1 ([facility]) 0.0 0.0-0.5 EOS # eCW1 ([facility]) 0.1 0.0-0.2 BASO # eCW1 ([facility]) ID Date Data Source Basic Metabolic Profile (BMP) 08/21/2020 12:00:00 AM EST eCW 1 ([facility]) Name Value Range Interpretation Code Description Data [facility] r[facility](s) Supporting Document(s) 140 70-100 GLUCOSE, FASTING eCW1 (Pending sale to [facility]) 1.04 0.55-1.30 CREATININE FOR GFR eCW1 ([facility]) 20 7-18 BLOOD UREA NITROGEN eCW1 (On license of [facility]) 58.8 >51 GLOMERULAR FILTRATION RATE eCW 1 ([facility]) 139 136-145 SODIUM LEVEL eCW1 ([facility]) 4.8 3.5-5.1 POTASSIUM SERUM eCW1 ([facility]) 103 98-107 CHLORIDE LEVEL eCW1 ([facility]) 30 21-32 CARBON DIOXIDE LEVEL eCW1 ([facility]) 8.5 8.5-10.1 CALCIUM LEVEL eCW1 ([facility]) ID Date Data Source [id number] 08/21/2020 12:00:00 AM EST eCW1 ([facility]) Name Value Range Interpretation Code Description Data [facility] r[facility]) Supporting Document(s) Hemoglobin A1c/Hemoglobin.total in Blood 7.0 HEMOGLOBIN A1c eCW1 ([facility]) ID Date Data Source FREE T4 & TSH PANEL 06/30/2020 04:54:25 AM EDT eCW1 ([facility] to [facility]) Name Value Range Interpretation Code Description Data [facility] r[facility](s) Supporting Document(s) 2.650 eCW1 ([facility]) 1.24 eCW1 ([facility]) Procedure Social History Code Duration Value Status Description Data Source(s ) Smoking 10/03/2020 12:00:00 AM EST Former Smoker completed Former Smoker eCW1 ([facility]) Smoking 08/31/2020 12:00:00 AM EST Former Smoker completed Former Smoker eCW1 ([facility]) Smoking 08/31/2020 12:00:00 AM EST Former Smoker completed Former Smoker eCW1 ([facility]) Smoking 08/31/2020 12:00:00 AM EST Former Smoker completed Former Smoker eCW1 ([facility]) Smoking 08/21/2020 12:00:00 AM EST Former Smoker completed Former Smoker eCW1 ([facility]) Smoking 08/21/2020 12:00:00 AM EST Former Smoker completed Former Smoker eCW1 ([facility]) Smoking 08/21/2020 12:00:00 AM EST Former Smoker completed Former Smoker eCW1 ([facility]) Smoking 07/20/2020 12:00:00 AM EST Former Smoker completed Former Smoker eCW1 ([facility]) Smoking 07/20/2020 12:00:00 AM EST Former Smoker completed Former Smoker eCW1 ([facility]) Smoking 07/20/2020 12:00:00 AM EST Former Smoker completed Former Smoker eCW1 ([facility]) Smoking 03/14/2020 12:00:00 AM EDT Former Smoker completed Former Smoker eCW1 ([facility]) Smoking 03/14/2020 12:00:00 AM EDT Former Smoker completed Former Smoker eCW1 ([facility]) Smoking 03/14/2020 12:00:00 AM EDT Former Smoker completed Former Smoker eCW1 ([facility]) Vital Signs ID Date Data Source UNK Name Value Range Interpretation Code Description Data Source(s) Diastolic blood pressure 80 mm[Hg] 80 mm[Hg] eCW1 ([facility]) Systolic blood pressure 132 mm[Hg] 132 mm[Hg] e CW1 ([facility]) Body temperature 97.5 [degF] 97.5 [degF] eCW1 ( [facility]) Respiratory rate 18 /min 18 /min eCW1 ([facility]) Heart rate 109 /min 109 /min eCW1 ([facility]) Body mass index (BMI) [Ratio] 52.58 kg/m2 52.58 kg/m2 eCW1 ([facility]) Body height [in_i] eCW1 ([facility] to [facility]) Body weight 313.6 [lb_av] 313.6 [lb_av] eCW1 ([facility]) Diastolic blood pressure 84 mm[Hg] 84 mm[Hg] eCW1 ([facility]) Systolic blood pressure 130 mm[Hg] 130 mm[Hg] e CW1 ([facility]) Body temperature 96.3 [degF] 96.3 [degF] eCW1 ( [facility]) Respiratory rate 18 /min 18 /min eCW1 ([facility]) Heart rate 88 /min 88 /min eCW1 ([facility]) Body mass index (BMI) [Ratio] 51.07 kg/m2 51.07 kg/m2 W1 ([facility]) Body height [in_i] eCW1 ([facility] to [facility]) Body weight 138.1 kg 138.1 kg eCW1 ([facility] to [facility]) Body weight 304.6 [lb_av] 304.6 [lb_av] eCW1 ([facility]) Diastolic blood pressure 82 mm[Hg] 82 mm[Hg] eCW1 ([facility]) Systolic blood pressure 150 mm[Hg] 150 mm[Hg] e CW1 ([facility]) Body temperature 96.6 [degF] 96.6 [degF] eCW1 ( [facility]) Respiratory rate 18 /min 18 /min eCW1 ([facility]) Heart rate 103 /min 103 /min eCW1 ([facility]) Body mass index (BMI) [Ratio] 50.81 kg/m2 50.81 kg/m2 eCW1 ([facility]) Body height [in_i] eCW1 ([facility] to [facility]) Body weight 303 [lb_av] 303 [lb_av] eCW1 ([facility]) Diastolic blood pressure 78 mm[Hg] 78 mm[Hg] eCW1 ([facility]) Systolic blood pressure 138 mm[Hg] 138 mm[Hg] e CW1 ([facility]) Body temperature 96.8 [degF] 96.8 [degF] eCW1 ( [facility]) Respiratory rate 18 /min 18 /min eCW1 ([facility]) Heart rate 98 /min 98 /min eCW1 ([facility]) Body mass index (BMI) [Ratio] 49.80 kg/m2 49.80 kg/m2 eCW1 ([facility]) Body height [in_i] eCW1 ([facility] to [facility]) Body weight 297 [lb_av] 297 [lb_av] eCW1 ([facility]) Diastolic blood pressure 72 mm[Hg] 72 mm[Hg] eCW1 ([facility]) Systolic blood pressure 124 mm[Hg] 124 mm[Hg] e CW1 ([facility]) Body temperature 97.1 [degF] 97.1 [degF] eCW1 ( [facility]) Respiratory rate 18 /min 18 /min eCW1 ([facility]) Heart rate 86 /min 86 /min eCW1 ([facility]) Body mass index (BMI) [Ratio] 45.98 kg/m2 45.98 kg/m2 eCW1 ([facility]) Body height [in_i] eCW1 ([facility] to [facility]) Body weight 274.2 [lb_av] 274.2 [lb_av] eCW1 ([facility]) Body mass index (BMI) [Ratio] 45.0 kg/m2 45.0 k g/m2 MEDENT ([facility]) Body weight 262.00 [lb_av] 262.00 [lb_av] MEDEN T ([facility]) Body height 64 [in_i] 64 [in_i] MEDENT ([facility]) 5'4" Body temperature 97.2 [degF] 97.2 [degF] MEDENT ([facility]) Diastolic blood pressure 86 mm[Hg] 86 mm[Hg] eCW1 ([facility]) Systolic blood pressure 128 mm[Hg] 128 mm[Hg] e CW1 ([facility]) Body temperature 97.7 [degF] 97.7 [degF] eCW1 ( [facility]) Respiratory rate 16 /min 16 /min eCW1 ([facility]) Heart rate 81 /min 81 /min eCW1 ([facility]) Body mass index (BMI) [Ratio] 45.54 kg/m2 45.54 kg/m2 eCW1 ([facility]) Body height [in_us] eCW1 ([facility] to [facility]) Body weight Measured 271.6 [lb_av] 271.6 [lb_av ] eCW1 ([facility]) Diastolic blood pressure 80 mm[Hg] 80 mm[Hg] eCW1 ([facility]) Systolic blood pressure 128 mm[Hg] 128 mm[Hg] e CW1 ([facility]) Body temperature 98.0 [degF] 98.0 [degF] eCW1 ( [facility]) Respiratory rate 18 /min 18 /min eCW1 ([facility]) Heart rate 83 /min 83 /min eCW1 ([facility]) Body mass index (BMI) [Ratio] 43.60 kg/m2 43.60 kg/m2 eCW1 ([facility]) Body height [in_us] eCW1 ([facility] to [facility]) Body weight Measured 260 [lb_av] 260 [lb_av] eC W1 ([facility]) Diastolic blood pressure 60 mm[Hg] 60 mm[Hg] eCW1 ([facility]) Systolic blood pressure 120 mm[Hg] 120 mm[Hg] e CW1 ([facility]) Body temperature 97.7 [degF] 97.7 [degF] eCW1 ( [facility]) Respiratory rate 18 /min 18 /min eCW1 ([facility]) Heart rate 80 /min 80 /min eCW1 ([facility]) Body mass index (BMI) [Ratio] 44.23 kg/m2 44.23 kg/m2 eCW1 ([facility]) Body height [in_us] eCW1 ([facility] to [facility]) Body weight Measured 263.8 [lb_av] 263.8 [lb_av ] eCW1 ([facility]) Patient Treatment Plan of Care Planned Activity Planned Date Details Description Data Source (s) Vitamin B12 1000 MCG 10/03/2020 12:00:00 AM EST eCW1 ([facility]) Prednisone 5 MG Oral Tablet 08/31/2020 12:00:00 AM EST eCW1 ([facility]) Prednisone 5 MG Oral Tablet 08/31/2020 12:00:00 AM EST eCW1 ([facility]) Prednisone 5 MG Oral Tablet 08/31/2020 12:00:00 AM EST eCW1 ([facility]) 24 HR Metformin hydrochloride 500 MG Extended Release Oral Tablet 08/21/2020 12:00:00 AM EST eCW1 ([facility]) Famotidine 40 MG Oral Tablet 08/21/2020 12:00:00 AM EST eCW1 ([facility]) 24 HR Metformin hydrochloride 500 MG Extended Release Oral Tablet 08/21/2020 12:00:00 AM EST eCW1 ([facility]) Famotidine 40 MG Oral Tablet 08/21/2020 12:00:00 AM EST eCW1 ([facility]) 24 HR Metformin hydrochloride 500 MG Extended Release Oral Tablet 08/21/2020 12:00:00 AM EST eCW1 ([facility]) Famotidine 40 MG Oral Tablet 08/21/2020 12:00:00 AM EST eCW1 ([facility]) Hydroxyzine Hydrochloride 25 MG Oral Tablet 07/20/2020 12:00:00 AM EST eCW1 ([facility]) Hydroxyzine Hydrochloride 25 MG Oral Tablet 07/20/2020 12:00:00 AM EST eCW1 ([facility]) Hydroxyzine Hydrochloride 25 MG Oral Tablet 07/20/2020 12:00:00 AM EST eCW1 ([facility]) Prednisone 20 MG Oral Tablet 06/23/2020 12:00:00 AM EDT eCW1 ([facility]) Prednisone 20 MG Oral Tablet 06/23/2020 12:00:00 AM EDT eCW1 ([facility]) Prednisone 20 MG Oral Tablet 06/23/2020 12:00:00 AM EDT eCW1 ([facility]) Prednisone 20 MG Oral Tablet 06/23/2020 12:00:00 AM EDT eCW1 ([facility]) Prednisone 20 MG Oral Tablet 06/23/2020 12:00:00 AM EDT eCW1 ([facility]) Prednisone 20 MG Oral Tablet 06/23/2020 12:00:00 AM EDT eCW1 ([facility]) Prednisone 20 MG Oral Tablet 06/23/2020 12:00:00 AM EDT eCW1 ([facility]) Prednisone 20 MG Oral Tablet 06/23/2020 12:00:00 AM EDT eCW1 ([facility]) Prednisone 20 MG Oral Tablet 06/23/2020 12:00:00 AM EDT eCW1 ([facility]) Flexeril 10 mg 30 10 mg 12/29/2019 12:00:00 AM EDT eCW1 ([facility])
[2020-10-05] MEDS ORDERED: POLYSPORIN OPHTH OINT 3.5 GM As Ordered ONE (12:01)
[2020-10-05] MEDS ORDERED: BUPIVACAINE/EPIN 0.25% 30 ML VIAL As Ordered ONE (12:01)
[2020-10-05] MEDS ORDERED: LIDOCAINE 1% MDV 20ML VIAL As Ordered ONE (12:01)
[2020-10-05] MEDS ORDERED: MIDAZOLAM INJ 2MG/2ML VIAL (J2250 PER 1MG) As Ordered ONE (12:28)
[2020-10-05] MEDS ORDERED: dexameTHASONE 4 MG/ML 1ML VIAL (J1100 PER 1MG) As Ordered ONE (12:28)
[2020-10-05] MEDS ORDERED: propofoL 200 MG/20 ML VIAL As Ordered ONE (12:28)
[2020-10-05] MEDS ORDERED: METOCLOPRAMIDE INJ 10MG/2ML VIAL (J2765 PER 1) As Ordered ONE (12:28)
[2020-10-05] MEDS ORDERED: fentaNYL 100 MCG/2 ML INJECTION (J3010) As Ordered ONE (12:28)
[2020-10-05] MEDS ORDERED: ONDANSETRON 4MG/2ML VIAL As Ordered ONE (12:28)
--- NOTE | 2020-10-05 14:05 | ROOPDOC ---
[facility] Report Of Operation Report of Operation DATE OF PROCEDURE: 10/05/20 PREPROCEDURE DIAGNOSES: Headaches and left eye pain with increased ESR POSTPROCEDURE DIAGNOSES: Same PROCEDURE: Left temporal artery biopsy SURGEON: Sonam Stern MD ANESTHESIA: Monitored anesthesia care and local anesthesia INDICATION FOR PROCEDURE: This is a very pleasant 55-year-old patient with a history of left-sided headaches and eye pain that improved when she was started on steroids, increased ESR, suspicion for temporal arteritis. Risks benefits and alternatives to a left temporal artery biopsy explained to the patient she is agreeable to proceed. Informed consent was obtained. REPORT OF OPERATION: The patient was brought to the or in stable condition. Monitored anesthesia care and antibiotics were administered without complication. Ultrasound was used to map the temporal artery from just anterior to the ear to the upper baptism. This was difficult because the artery was extremely small and not pulsatile for the most part. Her left baptism was prepped and draped in a sterile fashion. An incision was made after anesthetizing with local anesthesia. This was carried down to the subcutaneous tissues Bovie cautery. Sharp dissection was used to isolate the temporal artery and vein. The artery was skeletonized proximally and distally within the incision. It was tortuous, small, scarred down, and minimally pulsatile. Branches were clipped and ligated. 7 cm of artery was isolated and skeletonized proximally and distally. Clips were placed at the proximal and distal end of the artery. We then ligated and removed the artery and sent this for pathology. We irrigated with saline. Deep tissues were approximated with 3-0 Vicryl suture. The skin was closed with a 3-0 running nylon suture. Bacitracin and Xeroform were placed over the incision. The patient was allowed to awaken from anesthesia and was taken to recovery in stable condition. She tolerated the procedure well. ESTIMATED BLOOD LOSS: Approximately 10 mL. COMPLICATIONS: None. PLAN: We will see the patient back in a week to check her incision and remove her mina. We should have her pathology back by then. The patient is okay to shower, okay to wash her hair with baby shampoo, no styling products or heat products. Care should be taken not to dislodge the sutures. She should keep her head elevated most of the day over the next few days and try to sleep slightly elevated. This will diminish the chance of bleeding. Bacitracin or triple antibiotic ointment should be placed over the sutures daily. We appreciate the opportunity to participate in the care of this patient. SONAM STERN MD Oct 05, 2020 14:05
[2020-10-05] MEDS ORDERED: OXYC1TAB23 PO (14:14)
[2020-10-05 14:45] VITALS: BP 125/67
== END 2020-10-05 14:55 | disposition home or self-care (01) ==
LOC: M SDC 11:10
PROVIDERS: ATTEND Surgery Vascular Surgery
DX: R51.9 Headache, unspecified (principal); H57.12 Ocular pain, left eye; E03.9 Hypothyroidism, unspecified; E11.9 Type 2 diabetes mellitus without complications; E53.8 Deficiency of other specified B group vitamins; E55.9 Vitamin D deficiency, unspecified; E66.9 Obesity, unspecified; E78.2 Mixed hyperlipidemia; K21.9 Gastro-esophageal reflux disease without esophagitis; K58.9 Irritable bowel syndrome, unspecified; M54.41 Lumbago with sciatica, right side; R94.31 Abnormal electrocardiogram [ECG] [EKG]; T88.59XD Other complications of anesthesia, subsequent encounter; Z68.42 Body mass index [BMI] 45.0-49.9, adult; Z79.82 Long term (current) use of aspirin; Z79.899 Other long term (current) drug therapy; Z86.2 Personal history of diseases of the blood and blood-forming organs and certain disorders involving the immune mechanism; Z87.891 Personal history of nicotine dependence; Z88.5 Allergy status to narcotic agent
CPT/HCPCS: 37609; 88305; J0690; J1100; J2250; J2405; J2765; J3010

== ENCOUNTER → 2020-11-24 | Outpatient (REF) | payer OTHER ==
[~2020-11-24] MED LIST changes: -LR 1,000 ML IV ONE; -SCOPOLAMINE 1MG TRANSDERMAL PATCH TOP ONE; -ceFAZolin SOD 2 GM in IV 1 EA IV ONE
[2020-11-24 16:25] LABS: APPEARANCE, URINE CLEAR (CLEAR); BACTERIA, URINE AUTO NEGATIVE (NEGATIVE); BILIRUBIN, URINE AUTO NEGATIVE (NEGATIVE); BLOOD, URINE BLOOD NEGATIVE (NEGATIVE); COLOR, URINE YELLOW (YELLOW); GLUCOSE, URINE (UA) AUTO NEGATIVE (NEGATIVE); KETONE, URINE AUTO NEGATIVE (NEGATIVE); LEUKOCYTE ESTERASE, URINE AUTO NEGATIVE (NEGATIVE); MUCUS, URINE SMALL (NEGATIVE); NITRITE, URINE AUTO NEGATIVE (NEGATIVE); PROTEIN, URINE AUTO NEGATIVE (NEGATIVE); RBC, URINE AUTO 0 /HPF (0-3); SPECIFIC GRAVITY URINE AUTO 1.009 (1.002-1.035); SQUAMOUS EPITHELIAL CELL UR AU 0 /HPF (0-6); UROBILINOGEN, URINE AUTO 0.2 mg/dL (0.0-2.0); WBC, URINE AUTO 1 /HPF (0-3)
[2020-11-24 16:51] LABS: CREATININE,RANDOM URINE 57.7 MG/DL; TOTAL PROTEIN,RANDOM URINE < 5.0 MG/DL (0.0-12.0)
== END ==
LOC: M SFHCRHEU 12:02
PROVIDERS: ATTEND Internal Medicine
DX: M06.4 Inflammatory polyarthropathy (principal)

== ENCOUNTER → 2020-11-27 | Outpatient (CLI) | payer OTHER ==
--- NOTE | 2020-11-27 10:43 | REP ---
INDICATION: UNDIFFERENTIATED INFLAMMATORY ARTHRITIS COMPARISON: None. TECHNIQUE: AP, lateral, bilateral oblique views right and left ankle. FINDINGS: Symmetric generalized age-related changes are appreciated. No overt osteoarthritic findings or inflammatory arthritic findings noted. Bilateral ankle mortise appears symmetric and intact. No acute or healed injuries are identified. Incidental small bilateral calcaneal heel spurs noted. IMPRESSION: Symmetric generalized age-related changes. <Electronically signed by Nii Garrido > 11/27/20 [id number]
--- NOTE | 2020-11-27 10:45 | REP ---
INDICATION: UNDIFFERENTIATED INFLAMMATORY ARTHRITIS COMPARISON: None. TECHNIQUE: AP, lateral, bilateral oblique views right and left foot. FINDINGS: Generalized symmetric age-related degenerative changes are noted. No overt osteoarthritic or inflammatory arthritic findings. Incidental small bilateral calcaneal heel spurs noted. No evidence for acute or healed injury. Surrounding soft tissues are unremarkable. IMPRESSION: Symmetric generalized age-related degenerative changes. <Electronically signed by Nii Garrido > 11/27/20 104
--- NOTE | 2020-11-27 10:53 | REP ---
INDICATION: UNDIFFERENTIATED INFLAMMATORY ARTHRITIS COMPARISON: None. TECHNIQUE: AP, lateral, bilateral oblique views right and left wrist. FINDINGS: Carpal bones, joint spaces, and surrounding soft tissues are essentially symmetric and age-appropriate. No overt osteoarthritic or inflammatory arthritic changes are appreciated. No acute fracture or dislocation. IMPRESSION: Essentially symmetric age-appropriate bilateral wrist radiograph series. <Electronically signed by Nii Garrido > 11/27/20 [id number]
--- NOTE | 2020-11-27 10:53 | REP ---
INDICATION: UNDIFFERENTIATED INFLAMMATORY ARTHRITIS COMPARISON: None TECHNIQUE: AP, lateral, bilateral oblique views right and left hand. FINDINGS: Bilateral osseous structures, joint spaces, and surrounding soft tissues are essentially symmetric and demonstrate generalized age-related changes. Mild arthritic changes at the interphalangeal joints and 1st metacarpophalangeal joints include subchondral sclerosis with minimal joint space narrowing. No further overt osteoarthritic or inflammatory arthritic findings. No evidence for acute fracture or dislocation. IMPRESSION: Relatively symmetric generalized age-related degenerative changes. <Electronically signed by Nii Garrido > 11/27/20 [id number]
--- NOTE | 2020-11-27 11:02 | REP ---
INDICATION: UNDIFFERENTIATED INFLAMMATORY ARTHRITIS COMPARISON: None. TECHNIQUE: AP weightbearing views of the right and left knee FINDINGS: Relatively symmetric moderate osteoarthritic degenerative changes are appreciated. Findings include bilateral medial joint space narrowing along with scattered cortical irregularity and osteophyte formation. IMPRESSION: Relatively symmetric moderate osteoarthritic degenerative changes. <Electronically signed by Nii Garrido > 11/27/20 [id number]
[2020-11-27 11:27] LABS: BASO % 0.5 % (0.0-1.0); EOS % 0.1 % (0.0-3.0); HEMATOCRIT 40.9 % (36.0-47.0); HEMOGLOBIN 13.2 g/dl (12.0-15.5); LYMPH # 2.2 10^3/uL (1.5-5.0); LYMPH % 26.1 % (24.0-44.0); MEAN CORPUSCULAR HGB CONC 32.3 g/dl (32.0-36.5); MEAN CORPUSCULAR VOLUME 86.7 fl (80.0-96.0); MONO # 0.7 10^3/uL (0.0-0.8); MONO % 8.9 % (2.0-8.0); NEUTROPHILS # 5.3 10^3/uL (1.5-8.5); NEUTROPHILS % 64.2 % (36.0-66.0); PLATELET COUNT, AUTOMATED 364 10^3/uL (150-450); RED BLOOD COUNT 4.72 10^6/uL (4.00-5.40); WHITE BLOOD COUNT 8.2 10^3/uL (4.0-10.0)
[2020-11-27 11:57] LABS: ERYTHROCYTE SEDIMENTATION RATE 30 mm/hr (0-30)
[2020-11-27 12:13] LABS: ALBUMIN 3.5 GM/DL (3.2-5.2); ALT/SGPT 41 U/L (12-78); BILIRUBIN,DIRECT 0.1 MG/DL (0.0-0.2); BILIRUBIN,TOTAL 0.3 MG/DL (0.2-1.0); BLOOD UREA NITROGEN 13 MG/DL (7-18); C REACTIVE PROTEIN QUANTITATIV 1.88 MG/DL (0.00-0.30); CALCIUM LEVEL 9.1 MG/DL (8.5-10.1); CARBON DIOXIDE LEVEL 28 MEQ/L (21-32); CHLORIDE LEVEL 104 MEQ/L (98-107); COMPLEMENT C3 146 MG/DL (90-180); COMPLEMENT C4 21 MG/DL (10-40); CPK CREATINE PHOSPHOKINASE 45 U/L (26-192); CREATININE FOR GFR 0.69 MG/DL (0.55-1.30); GLOMERULAR FILTRATION RATE > 60.0 (>51); GLUCOSE, FASTING 181 MG/DL (70-100); IRON (FE) 64 UG/DL (50-170); MAGNESIUM LEVEL 1.9 MG/DL (1.8-2.4); PHOSPHORUS LEVEL 3.5 MG/DL (2.5-4.9); POTASSIUM SERUM 4.3 MEQ/L (3.5-5.1); RHEUMATOID FACTOR QUANT < 10.0 IU/ML (<15.0); SODIUM LEVEL 137 MEQ/L (136-145); TOTAL 25(OH) VITAMIN D 22.7 NG/ML (30.0-100.0); TOTAL PROTEIN 6.8 GM/DL (6.4-8.2); VITAMIN B12 LEVEL 306 PG/ML (247-911)
== END ==
LOC: M WUC 09:40
PROVIDERS: ATTEND Internal Medicine
DX: M06.4 Inflammatory polyarthropathy (principal); M79.10 Myalgia, unspecified site

== ENCOUNTER → 2020-12-18 | Outpatient (REF) | payer OTHER ==
[2020-12-21 15:07] LABS: Lyme Disease IgG Ab 18 kDa Ban Absent (.); Lyme Disease IgG Ab 23 kDa Ban Absent (.); Lyme Disease IgG Ab 28 kDa Ban Absent (.); Lyme Disease IgG Ab 30 kDa Ban Absent (.); Lyme Disease IgG Ab 39 kDa Ban Absent (.); Lyme Disease IgG Ab 41 kDa Ban Present (.); Lyme Disease IgG Ab 45 kDa Ban Absent (.); Lyme Disease IgG Ab 58 kDa Ban Absent (.); Lyme Disease IgG Ab 66 kDa Ban Absent (.); Lyme Disease IgG Ab 93 kDa Ban Absent (.); Lyme Disease IgG West Blot Int Negative (.); Lyme Disease IgG/IgM Antibodie <0.91 ISR (0.00-0.90); Lyme Disease IgM Ab 23 kDa Ban Present (.); Lyme Disease IgM Ab 39 kDa Ban Absent (.); Lyme Disease IgM Ab 41 kDa Ban Absent (.); Lyme Disease IgM Ab Quantitati 0.84 index (0.00-0.79); Lyme Disease IgM West Blot Int Negative (.)
== END ==
LOC: M SFHCRHEU 11:56
PROVIDERS: ATTEND Internal Medicine
DX: M06.4 Inflammatory polyarthropathy (principal)

== ENCOUNTER → 2021-01-16 | Outpatient (CLI) | payer OTHER ==
--- NOTE | 2021-01-16 13:56 | REP ---
INDICATION: COUGH COMPARISON: 05/11/2012 TECHNIQUE: PA and lateral. FINDINGS: The mediastinum and cardiac silhouette are normal. The lung champion are clear and without acute consolidation, effusion, or pneumothorax. The skeletal structures are intact and normal. IMPRESSION: No acute cardiopulmonary process. <Electronically signed by Nii Garrido > 01/16/21 0924
== END ==
LOC: M WUC 09:52
PROVIDERS: ATTEND Physician Assistant
DX: R05 Cough (principal)

== ENCOUNTER → 2021-03-08 | Outpatient (REF) | payer OTHER | LOC: M SFHCWAGY 13:05 | PROVIDERS: ATTEND Nurse Practitioner Women's Health | DX: Z12.4 Encounter for screening for malignant neoplasm of cervix (principal); Z01.419 Encounter for gynecological examination (general) (routine) without abnormal findings ==

== ENCOUNTER → 2021-03-08 | Outpatient (CLI) | payer OTHER ==
--- NOTE | 2021-03-08 11:02 | REPMRS ---
Patient History The patient states she had a clinical breast exam in February 2021. Patient is postmenopausal. Family history of colorectal cancer and ovarian cancer in mother, ovarian cancer in sister, breast cancer in maternal aunt. No breast complaints today Patient signed the MRS sheet No covid vaccine Patient has gained weight due to Medication Priors on PACS Patient Identification Verified Digital Woman Screen Mammo: March 08, 2021 - Exam #: [id number] Bilateral CC and MLO view(s) were taken. Technologist: Ana Delong, Technologist Prior study comparison: February 21, 2014, digital woman screen mammo performed at [facility], [place]. December 10, 2012, digital woman screen mammo performed at [facility] [place]. July 02, 2011, bilateral bilat screen digital mammo performed at [facility] [place]. FINDINGS: There are scattered fibroglandular densities. The Volpara volumetric breast density category is:B. There has been no change in the appearance of the mammogram from the prior studies. There is a mild amount of scattered fibroglandular density which is fairly symmetric. There is no interval development of dominant mass, architectural distortion, or grouped microcalcification suggestive of malignancy. 3-D tomosynthesis shows no additional findings. Assessment: BI-RADS/ACR category 1 mammogram. Negative Mammogram. Recommendation Routine screening mammogram of both breasts in 1 year (for women over age 40). This patient's [facility] Lifetime Breast Cancer Risk is estimated at 17.0 %. This mammogram was interpreted with the aid of an FDA-approved computer-aided dectection system. Electronically Signed By: Tenzin Mckenzie MD 03/08/21 [id number]
== END ==
LOC: M WHC 09:21
PROVIDERS: ATTEND Nurse Practitioner Women's Health
DX: Z12.31 Encounter for screening mammogram for malignant neoplasm of breast (principal)

== ENCOUNTER → 2021-03-27 | Outpatient (CLI) | payer OTHER ==
[2021-03-27 12:22] LABS: BASO % 0.4 % (0.0-1.0); HEMATOCRIT 42.5 % (36.0-47.0); HEMOGLOBIN 13.3 g/dl (12.0-15.5); LYMPH # 2.3 10^3/uL (1.5-5.0); LYMPH % 30.3 % (24.0-44.0); MEAN CORPUSCULAR HEMOGLOBIN 26.1 pg (27.0-33.0); MEAN CORPUSCULAR HGB CONC 31.3 g/dl (32.0-36.5); MEAN CORPUSCULAR VOLUME 83.5 fl (80.0-96.0); MONO # 0.6 10^3/uL (0.0-0.8); MONO % 7.5 % (2.0-8.0); NEUTROPHILS # 4.7 10^3/uL (1.5-8.5); NEUTROPHILS % 61.5 % (36.0-66.0); PLATELET COUNT, AUTOMATED 371 10^3/uL (150-450); RED BLOOD COUNT 5.09 10^6/uL (4.00-5.40); WHITE BLOOD COUNT 7.6 10^3/uL (4.0-10.0)
[2021-03-27 12:50] LABS: ERYTHROCYTE SEDIMENTATION RATE 33 mm/hr (0-30)
[2021-03-27 12:52] LABS: ALBUMIN 3.6 GM/DL (3.2-5.2); ALT/SGPT 41 U/L (12-78); BILIRUBIN,DIRECT 0.2 MG/DL (0.0-0.2); BILIRUBIN,TOTAL 0.6 MG/DL (0.2-1.0); BLOOD UREA NITROGEN 11 MG/DL (7-18); C REACTIVE PROTEIN QUANTITATIV 2.58 MG/DL (0.00-0.30); CALCIUM LEVEL 9.4 MG/DL (8.5-10.1); CARBON DIOXIDE LEVEL 26 MEQ/L (21-32); CHLORIDE LEVEL 105 MEQ/L (98-107); CREATININE FOR GFR 0.71 MG/DL (0.55-1.30); GLOMERULAR FILTRATION RATE > 60.0 (>51); GLUCOSE, FASTING 127 MG/DL (70-100); POTASSIUM SERUM 4.1 MEQ/L (3.5-5.1); SODIUM LEVEL 139 MEQ/L (136-145); TOTAL PROTEIN 7.3 GM/DL (6.4-8.2)
[2021-03-28 16:09] LABS: Lyme Disease IgG/IgM Antibodie <0.91 ISR (0.00-0.90); Lyme Disease IgM Ab Quantitati <0.80 index (0.00-0.79)
== END ==
LOC: M WUC 08:58
PROVIDERS: ATTEND Internal Medicine
DX: M06.4 Inflammatory polyarthropathy (principal)

== ENCOUNTER → 2021-04-27 | Outpatient (CLI) | payer OTHER ==
--- NOTE | 2021-04-27 14:22 | REP ---
INDICATION: HEADACHE. COMPARISON: None. TECHNIQUE: Axial scans were obtained without contrast administration. FINDINGS: There is no displacement of midline structures. The 3rd and lateral ventricles are normal size and configuration. The cerebral hemispheres show normal configuration and attenuation. There is no evidence of hemorrhage, mass effect or edema. The brainstem and posterior fossa are unremarkable. There is no evidence of extra-axial fluid collection. The calvarium is intact. IMPRESSION: Normal brain CT. <Electronically signed by George Khalil > 04/27/21 [id number]
== END ==
LOC: M PLAIMG 13:56
PROVIDERS: ATTEND Psychiatry & Neurology Neurology
DX: R51.9 Headache, unspecified (principal)

== ENCOUNTER → 2021-07-16 | Outpatient (REF) | payer OTHER ==
[2021-07-16 16:54] LABS: BASO % 0.2 % (0.0-1.0); HEMATOCRIT 43.2 % (36.0-47.0); HEMOGLOBIN 13.6 g/dl (12.0-15.5); LYMPH # 3.3 10^3/uL (1.5-5.0); LYMPH % 30.7 % (24.0-44.0); MEAN CORPUSCULAR HEMOGLOBIN 26.7 pg (27.0-33.0); MEAN CORPUSCULAR HGB CONC 31.5 g/dl (32.0-36.5); MEAN CORPUSCULAR VOLUME 84.9 fl (80.0-96.0); MONO # 0.8 10^3/uL (0.0-0.8); MONO % 7.2 % (2.0-8.0); NEUTROPHILS # 6.6 10^3/uL (1.5-8.5); NEUTROPHILS % 61.5 % (36.0-66.0); PLATELET COUNT, AUTOMATED 412 10^3/uL (150-450); RED BLOOD COUNT 5.09 10^6/uL (4.00-5.40); WHITE BLOOD COUNT 10.8 10^3/uL (4.0-10.0)
[2021-07-16 16:57] LABS: APPEARANCE, URINE HAZY (CLEAR); BACTERIA, URINE AUTO NEGATIVE (NEGATIVE); BILIRUBIN, URINE AUTO NEGATIVE (NEGATIVE); BLOOD, URINE BLOOD NEGATIVE (NEGATIVE); COLOR, URINE YELLOW (YELLOW); GLUCOSE, URINE (UA) AUTO NEGATIVE (NEGATIVE); KETONE, URINE AUTO NEGATIVE (NEGATIVE); LEUKOCYTE ESTERASE, URINE AUTO 1+ (NEGATIVE); MUCUS, URINE SMALL (NEGATIVE); NITRITE, URINE AUTO NEGATIVE (NEGATIVE); PROTEIN, URINE AUTO NEGATIVE (NEGATIVE); RBC, URINE AUTO 0 /HPF (0-3); SPECIFIC GRAVITY URINE AUTO 1.018 (1.002-1.035); SQUAMOUS EPITHELIAL CELL UR AU 2 /HPF (0-6); UROBILINOGEN, URINE AUTO 0.2 mg/dL (0.0-2.0); WBC, URINE AUTO 9 /HPF (0-3)
[2021-07-16 17:27] LABS: COMPLEMENT C3 146 MG/DL (90-180); COMPLEMENT C4 22 MG/DL (10-40)
[2021-07-16 17:28] LABS: TOTAL PROTEIN,RANDOM URINE < 5.0 MG/DL (0.0-12.0)
[2021-07-17 10:00] LABS: DRVV SCREEN 36.7 SEC
== END ==
LOC: M SFHCRHEU 14:28
PROVIDERS: ATTEND Internal Medicine
DX: M06.4 Inflammatory polyarthropathy (principal)

== ENCOUNTER → 2021-08-24 | Outpatient (CLI) | payer OTHER ==
[2021-08-24 11:20] LABS: CREATININE, URINE 52.2 MG/DL; MALB URINE SIEMENS 8.8 MG/L; MAU/CREAT RATIO 16.8 MCG/MG (0.0-30.0)
[2021-08-24 11:34] LABS: ALBUMIN 3.7 GM/DL (3.2-5.2); ALT/SGPT 42 U/L (12-78); BILIRUBIN,TOTAL 0.4 MG/DL (0.2-1.0); BLOOD UREA NITROGEN 14 MG/DL (7-18); CALCIUM LEVEL 9.5 MG/DL (8.5-10.1); CARBON DIOXIDE LEVEL 31 MEQ/L (21-32); CHLORIDE LEVEL 102 MEQ/L (98-107); CHOLESTEROL LEVEL 194 MG/DL (<200); CHOLESTEROL RISK RATIO 3.527 (<5); CREATININE FOR GFR 0.79 MG/DL (0.55-1.30); FREE T4 1.02 NG/DL (0.76-1.46); GLOMERULAR FILTRATION RATE > 60.0 (>51); GLUCOSE, FASTING 155 MG/DL (70-100); HDL CHOLESTEROL 55 MG/DL (>40); LDL CHOLESTEROL 115 MG/DL (<100); NON-HDL-C 139 MG/DL; SODIUM LEVEL 137 MEQ/L (136-145); TOTAL PROTEIN 7.5 GM/DL (6.4-8.2); TRIGLYCERIDES LEVEL 119 MG/DL (<150)
[2021-08-24 11:37] LABS: TOTAL 25(OH) VITAMIN D 22.5 NG/ML (30.0-100.0)
== END ==
LOC: M PLALAB 09:02
PROVIDERS: ATTEND Nurse Practitioner Adult Health
DX: E03.9 Hypothyroidism, unspecified (principal); E11.9 Type 2 diabetes mellitus without complications; E78.2 Mixed hyperlipidemia; M79.10 Myalgia, unspecified site

== ENCOUNTER → 2021-10-03 | Outpatient (CLI) | payer OTHER ==
[2021-10-03 16:25] LABS: BASO % 0.4 % (0.0-1.0); EOS # 0.1 10^3/uL (0.0-0.5); EOS % 0.5 % (0.0-3.0); HEMATOCRIT 41.3 % (36.0-47.0); HEMOGLOBIN 13.1 g/dl (12.0-15.5); LYMPH # 3.1 10^3/uL (1.5-5.0); LYMPH % 29.2 % (24.0-44.0); MEAN CORPUSCULAR HEMOGLOBIN 26.7 pg (27.0-33.0); MEAN CORPUSCULAR HGB CONC 31.7 g/dl (32.0-36.5); MEAN CORPUSCULAR VOLUME 84.3 fl (80.0-96.0); MONO # 0.7 10^3/uL (0.0-0.8); NEUTROPHILS # 6.6 10^3/uL (1.5-8.5); NEUTROPHILS % 62.5 % (36.0-66.0); PLATELET COUNT, AUTOMATED 413 10^3/uL (150-450); WHITE BLOOD COUNT 10.5 10^3/uL (4.0-10.0)
[2021-10-03 16:45] LABS: ALBUMIN 3.6 GM/DL (3.2-5.2); ALT/SGPT 42 U/L (12-78); BILIRUBIN,DIRECT < 0.1 MG/DL (0.0-0.2); BILIRUBIN,TOTAL 0.3 MG/DL (0.2-1.0); C REACTIVE PROTEIN QUANTITATIV 1.91 MG/DL (0.00-0.30); TOTAL PROTEIN 7.3 GM/DL (6.4-8.2)
[2021-10-03 19:40] LABS: ERYTHROCYTE SEDIMENTATION RATE 28 mm/hr (0-30)
== END ==
LOC: M WUC 13:27
PROVIDERS: ATTEND Internal Medicine
DX: M06.4 Inflammatory polyarthropathy (principal)

== ENCOUNTER → 2021-10-19 | Outpatient (CLI) | payer OTHER | LOC: M PLAIMG 14:38 | PROVIDERS: ATTEND Physician Assistant | DX: M79.671 Pain in right foot (principal) ==

== ENCOUNTER → 2022-09-27 | Outpatient (CLI) | payer OTHER ==
[2022-09-27 17:02] LABS: THYROID STIMULATING HORMONE 2.355 uIU/ML (0.55-4.78); TOTAL 25(OH) VITAMIN D 24.2 NG/ML (20.0-100.0)
[2022-09-27 17:03] LABS: ALBUMIN 3.9 G/DL (3.2-5.2); ALKALINE PHOSPHATASE 139 U/L (46-116); ALT/SGPT 36 U/L (7.0-40); AST/SGOT 12 U/L (<34); BILIRUBIN,TOTAL 0.4 MG/DL (0.3-1.2); BLOOD UREA NITROGEN 16 MG/DL (9-23); CALCIUM LEVEL 9.6 MG/DL (8.5-10.1); CARBON DIOXIDE LEVEL 29 MMOL/L (20-31); CHLORIDE LEVEL 102 MMOL/L (98-107); CHOLESTEROL LEVEL 217 MG/DL (<200); CHOLESTEROL RISK RATIO 3.23 (<5); CREATININE FOR GFR 0.79 MG/DL (0.55-1.30); CREATININE, URINE 149.9 MG/DL; GLOMERULAR FILTRATION RATE > 60.0 (>51); GLUCOSE, FASTING 96 MG/DL (60-100); LDL CHOLESTEROL 130.6 MG/DL (<100); NON-HDL-C 150 MG/DL; POTASSIUM SERUM 4.7 MMOL/L (3.5-5.1); SODIUM LEVEL 139 MMOL/L (136-145); TOTAL PROTEIN 7.2 G/DL (5.7-8.2); TRIGLYCERIDES LEVEL 97 MG/DL (<150)
[2022-09-27 18:20] LABS: HEMOGLOBIN A1c 6.4 % (4.0-6.0)
== END ==
LOC: M WUC 13:12
PROVIDERS: ATTEND Nurse Practitioner Adult Health
DX: E03.9 Hypothyroidism, unspecified (principal); R07.9 Chest pain, unspecified; E11.9 Type 2 diabetes mellitus without complications; E78.2 Mixed hyperlipidemia

== ENCOUNTER → 2022-10-01 | Outpatient (REF) | LOC: M PLAIMG 11:38 | PROVIDERS: ATTEND Internal Medicine | DX: Z00.00 Encounter for general adult medical examination without abnormal findings (principal) ==

== ENCOUNTER → 2022-10-31 | Outpatient (REF) | payer OTHER ==
[2022-10-31 17:13] LABS: APPEARANCE, URINE HAZY (CLEAR); BILIRUBIN, URINE AUTO NEGATIVE (NEGATIVE); BLOOD, URINE BLOOD NEGATIVE (NEGATIVE); COLOR, URINE YELLOW (YELLOW); GLUCOSE, URINE (UA) AUTO NEGATIVE (NEGATIVE); KETONE, URINE AUTO NEGATIVE (NEGATIVE); LEUKOCYTE ESTERASE, URINE AUTO 2+ (NEGATIVE); NITRITE, URINE AUTO NEGATIVE (NEGATIVE); PROTEIN, URINE AUTO NEGATIVE (NEGATIVE); SPECIFIC GRAVITY URINE AUTO 1.017 (1.002-1.035)
[2022-10-31 17:15] LABS: BACTERIA, URINE AUTO NEGATIVE (NEGATIVE); RBC, URINE AUTO 0 /HPF (0-3); SQUAMOUS EPITHELIAL CELL UR AU 4 /HPF (0-6); WBC, URINE AUTO 24 /HPF (0-3)
[2022-10-31 17:52] LABS: BASO % 0.4 % (0.0-1.0); EOS # 0.3 10^3/uL (0.0-0.5); EOS % 3.2 % (0.0-3.0); HEMATOCRIT 44.4 % (36.0-47.0); LYMPH % 36.8 % (24.0-44.0); MEAN CORPUSCULAR HGB CONC 31.5 g/dl (32.0-36.5); MEAN CORPUSCULAR VOLUME 85.7 fl (80.0-96.0); MONO # 0.5 10^3/uL (0.0-0.8); MONO % 6.5 % (2.0-8.0); NEUTROPHILS # 4.3 10^3/uL (1.5-8.5); NEUTROPHILS % 52.9 % (36.0-66.0); PLATELET COUNT, AUTOMATED 406 10^3/uL (150-450); RED BLOOD COUNT 5.18 10^6/uL (4.00-5.40); WHITE BLOOD COUNT 8.1 10^3/uL (4.0-10.0)
[2022-10-31 17:54] LABS: C REACTIVE PROTEIN QUANTITATIV 1.7 MG/DL (<1.0)
[2022-10-31 17:55] LABS: COMPLEMENT C3 155.3 MG/DL (90.0-170.0); COMPLEMENT C4 29.4 MG/DL (12-36)
[2022-10-31 18:07] LABS: TOTAL PROTEIN,RANDOM URINE 12.4 MG/DL (0.0-14.0)
[2022-10-31 18:11] LABS: CREATININE,RANDOM URINE 101.5 MG/DL
[2022-10-31 19:19] LABS: ERYTHROCYTE SEDIMENTATION RATE 49 mm/hr (0-30)
[2022-11-01 11:44] LABS: PTT LUPUS TYPE ANTICOAG SCREEN 0.9 (0-1.2)
== END ==
LOC: M SFHCRHEU 12:58
PROVIDERS: ATTEND Internal Medicine
DX: M06.4 Inflammatory polyarthropathy (principal); R74.8 Abnormal levels of other serum enzymes

== ENCOUNTER → 2022-11-28 | Outpatient (CLI) | payer OTHER | LOC: M WHC 15:00 | PROVIDERS: ATTEND Nurse Practitioner Adult Health | DX: Z12.31 Encounter for screening mammogram for malignant neoplasm of breast (principal) ==

== ENCOUNTER → 2023-01-27 | Outpatient (CLI) | payer OTHER | LOC: M PLAIMG 15:10 | PROVIDERS: ATTEND Internal Medicine | DX: M06.4 Inflammatory polyarthropathy (principal) ==

== ENCOUNTER → 2023-02-05 | Outpatient (REF) | payer OTHER | LOC: M SFHCPLAZ 18:03 | PROVIDERS: ATTEND Nurse Practitioner Adult Health | DX: R30.0 Dysuria (principal) ==

== ENCOUNTER → 2023-02-06 | Outpatient (CLI) | payer OTHER ==
[2023-02-06 12:12] LABS: HEMOGLOBIN A1c 6.8 % (4.0-6.0)
[2023-02-06 12:33] LABS: THYROID STIMULATING HORMONE 4.193 uIU/ML (0.55-4.78)
[2023-02-06 12:45] LABS: ALBUMIN 3.7 G/DL (3.2-5.2); ALKALINE PHOSPHATASE 134 U/L (46-116); ALT/SGPT 42 U/L (7.0-40); AST/SGOT 27 U/L (<34); BILIRUBIN,TOTAL 0.5 MG/DL (0.3-1.2); BLOOD UREA NITROGEN 11 MG/DL (9-23); CALCIUM LEVEL 9.1 MG/DL (8.5-10.1); CARBON DIOXIDE LEVEL 26 MMOL/L (20-31); CHLORIDE LEVEL 103 MMOL/L (98-107); CHOLESTEROL LEVEL 196 MG/DL (<200); CHOLESTEROL RISK RATIO 3.06 (<5); CREATININE FOR GFR 0.64 MG/DL (0.55-1.30); FOLATE 17.7 NG/ML (>5.4); GLOMERULAR FILTRATION RATE > 60.0 (>51); GLUCOSE, FASTING 113 MG/DL (60-100); HDL CHOLESTEROL 63.9 MG/DL (>40); LDL CHOLESTEROL 112.9 MG/DL (<100); MAGNESIUM LEVEL 1.9 MG/DL (1.8-2.4); NON-HDL-C 132.1 MG/DL; POTASSIUM SERUM 5.9 MMOL/L (3.5-5.1); SODIUM LEVEL 138 MMOL/L (136-145); TOTAL PROTEIN 7.1 G/DL (5.7-8.2); TRIGLYCERIDES LEVEL 96 MG/DL (<150); VITAMIN B12 LEVEL 267 PG/ML (211-911)
== END ==
LOC: M PLALAB 08:45
PROVIDERS: ATTEND Nurse Practitioner Adult Health
DX: E11.9 Type 2 diabetes mellitus without complications (principal)

== ENCOUNTER → 2023-06-26 | Outpatient (CLI) | payer OTHER ==
[2023-06-26 16:11] LABS: HEMOGLOBIN A1c 6.9 % (4.0-6.0)
[2023-06-26 16:20] LABS: ALBUMIN 3.7 G/DL (3.2-5.2); ALKALINE PHOSPHATASE 132 U/L (46-116); ALT/SGPT 35 U/L (7.0-40); AST/SGOT 9 U/L (<34); BILIRUBIN,TOTAL 0.4 MG/DL (0.3-1.2); BLOOD UREA NITROGEN 16 MG/DL (9-23); CALCIUM LEVEL 9.4 MG/DL (8.5-10.1); CARBON DIOXIDE LEVEL 31 MMOL/L (20-31); CHLORIDE LEVEL 103 MMOL/L (98-107); CHOLESTEROL LEVEL 205 MG/DL (<200); CHOLESTEROL RISK RATIO 3.17 (<5); CREATININE FOR GFR 0.68 MG/DL (0.55-1.30); GLOMERULAR FILTRATION RATE > 60.0 (>51); GLUCOSE, FASTING 129 MG/DL (60-100); HDL CHOLESTEROL 64.6 MG/DL (>40); LDL CHOLESTEROL 111.4 MG/DL (<100); NON-HDL-C 140.4 MG/DL; POTASSIUM SERUM 4.3 MMOL/L (3.5-5.1); SODIUM LEVEL 140 MMOL/L (136-145); TOTAL PROTEIN 7.2 G/DL (5.7-8.2); TRIGLYCERIDES LEVEL 145 MG/DL (<150)
== END ==
LOC: M PLALAB 13:45
PROVIDERS: ATTEND Nurse Practitioner Adult Health
DX: E11.9 Type 2 diabetes mellitus without complications (principal); E78.2 Mixed hyperlipidemia

== ENCOUNTER → 2023-09-18 | Outpatient (REF) | payer OTHER ==
[2023-09-18 14:17] LABS: APPEARANCE, URINE HAZY (CLEAR); BACTERIA, URINE AUTO NEGATIVE (NEGATIVE); BILIRUBIN, URINE AUTO NEGATIVE (NEGATIVE); BLOOD, URINE BLOOD NEGATIVE (NEGATIVE); COLOR, URINE YELLOW (YELLOW); GLUCOSE, URINE (UA) AUTO NEGATIVE (NEGATIVE); KETONE, URINE AUTO NEGATIVE (NEGATIVE); LEUKOCYTE ESTERASE, URINE AUTO 2+ (NEGATIVE); MUCUS, URINE SMALL (NEGATIVE); NITRITE, URINE AUTO NEGATIVE (NEGATIVE); PROTEIN, URINE AUTO NEGATIVE (NEGATIVE); RBC, URINE AUTO 1 /HPF (0-3); SPECIFIC GRAVITY URINE AUTO 1.011 (1.002-1.035); SQUAMOUS EPITHELIAL CELL UR AU 1 /HPF (0-6); UROBILINOGEN, URINE AUTO 0.2 mg/dL (0.0-2.0); WBC, URINE AUTO 7 /HPF (0-3)
== END ==
LOC: M SFHCPLAZ 13:19
PROVIDERS: ATTEND Physician Assistant Medical
DX: R30.0 Dysuria (principal)

== ENCOUNTER → 2023-10-16 | Outpatient (CLI) | payer OTHER ==
[2023-10-16 14:11] LABS: ALBUMIN 3.8 G/DL (3.2-5.2); ALKALINE PHOSPHATASE 144 U/L (46-116); ALT/SGPT 36 U/L (7.0-40); AST/SGOT < 8 U/L (<34); BILIRUBIN,TOTAL 0.5 MG/DL (0.3-1.2); BLOOD UREA NITROGEN 13 MG/DL (9-23); CALCIUM LEVEL 9.2 MG/DL (8.5-10.1); CARBON DIOXIDE LEVEL 31 MMOL/L (20-31); CHLORIDE LEVEL 103 MMOL/L (98-107); CHOLESTEROL LEVEL 205 MG/DL (<200); CHOLESTEROL RISK RATIO 3.13 (<5); CREATININE FOR GFR 0.65 MG/DL (0.55-1.30); GLOMERULAR FILTRATION RATE > 60.0 (>51); GLUCOSE, FASTING 113 MG/DL (60-100); HDL CHOLESTEROL 65.4 MG/DL (>40); MAGNESIUM LEVEL 1.9 MG/DL (1.8-2.4); NON-HDL-C 139.6 MG/DL; POTASSIUM SERUM 4.7 MMOL/L (3.5-5.1); SODIUM LEVEL 138 MMOL/L (136-145); TOTAL PROTEIN 7.6 G/DL (5.7-8.2); TRIGLYCERIDES LEVEL 78 MG/DL (<150)
[2023-10-16 14:12] LABS: HEMATOCRIT 44.5 % (36.0-47.0); HEMOGLOBIN 14.5 g/dl (12.0-15.5); MEAN CORPUSCULAR HEMOGLOBIN 27.9 pg (27.0-33.0); MEAN CORPUSCULAR HGB CONC 32.6 g/dl (32.0-36.5); MEAN CORPUSCULAR VOLUME 85.7 fl (80.0-96.0); PLATELET COUNT, AUTOMATED 401 10^3/uL (150-450); RED BLOOD COUNT 5.19 10^6/uL (4.00-5.40); THYROID STIMULATING HORMONE 4.757 uIU/ML (0.55-4.78)
[2023-10-16 14:13] LABS: TOTAL 25(OH) VITAMIN D 23.8 NG/ML (20.0-100.0)
[2023-10-16 14:24] LABS: HEMOGLOBIN A1c 7.2 % (4.0-6.0)
== END ==
LOC: M PLALAB 10:27
PROVIDERS: ATTEND Nurse Practitioner Adult Health
DX: D64.9 Anemia, unspecified (principal); E11.9 Type 2 diabetes mellitus without complications

== ENCOUNTER → 2023-11-27 | Outpatient (CLI) | payer OTHER | LOC: M RAD 08:26 | PROVIDERS: ATTEND Nurse Practitioner Adult Health | DX: R74.01 Elevation of levels of liver transaminase levels (principal) ==

== ENCOUNTER → 2023-11-27 | Outpatient (CLI) | payer OTHER | LOC: M RAD 08:39 | PROVIDERS: ATTEND Podiatrist | DX: I80.222 Phlebitis and thrombophlebitis of left popliteal vein (principal) ==

== ENCOUNTER → 2023-12-30 | Outpatient (CLI) | payer OTHER | LOC: M WHC 08:00 | PROVIDERS: ATTEND Nurse Practitioner Family | DX: Z12.31 Encounter for screening mammogram for malignant neoplasm of breast (principal) ==

== ENCOUNTER → 2023-12-30 | Outpatient (REF) | payer OTHER | LOC: M SFHCWAGY 12:16 | PROVIDERS: ATTEND Nurse Practitioner Family | DX: R30.0 Dysuria (principal) ==

== ENCOUNTER → 2024-01-26 | Outpatient (CLI) | payer OTHER | LOC: M PLAIMG 10:42 | PROVIDERS: ATTEND Podiatrist | DX: S86.312D Strain of muscle(s) and tendon(s) of peroneal muscle group at lower leg level, left leg, subsequent encounter (principal) ==

== ENCOUNTER → 2024-02-03 | Outpatient (CLI) | payer OTHER | LOC: M PLAIMG 12:29 | PROVIDERS: ATTEND Nurse Practitioner Adult Health | DX: R06.02 Shortness of breath (principal) ==

== ENCOUNTER → 2024-02-03 | Outpatient (REF) | LOC: M PLAIMG 12:34 | PROVIDERS: ATTEND Internal Medicine | DX: R52 Pain, unspecified (principal) ==

== ENCOUNTER → 2024-02-19 | Outpatient (CLI) | payer OTHER ==
[2024-02-19 14:17] LABS: HEMATOCRIT 44.3 % (36.0-47.0); HEMOGLOBIN 14.3 g/dl (12.0-15.5); MEAN CORPUSCULAR HEMOGLOBIN 27.4 pg (27.0-33.0); MEAN CORPUSCULAR HGB CONC 32.3 g/dl (32.0-36.5); PLATELET COUNT, AUTOMATED 360 10^3/uL (150-450); RED BLOOD COUNT 5.21 10^6/uL (4.00-5.40); WHITE BLOOD COUNT 8.2 10^3/uL (4.0-10.0)
[2024-02-19 14:39] LABS: HEMOGLOBIN A1c 8.4 % (4.0-6.0)
[2024-02-19 14:50] LABS: CREATININE, URINE 155.4 MG/DL; MAU/CREAT RATIO 4.5 MCG/MG (0.0-30.0)
[2024-02-19 14:53] LABS: ALBUMIN 3.8 G/DL (3.2-5.2); ALKALINE PHOSPHATASE 147 U/L (46-116); ALT/SGPT 50 U/L (7.0-40); AST/SGOT 14 U/L (<34); BILIRUBIN,TOTAL 0.6 MG/DL (0.3-1.2); BLOOD UREA NITROGEN 12 MG/DL (9-23); CALCIUM LEVEL 9.5 MG/DL (8.5-10.1); CARBON DIOXIDE LEVEL 29 MMOL/L (20-31); CHLORIDE LEVEL 102 MMOL/L (98-107); CHOLESTEROL LEVEL 216 MG/DL (<200); CHOLESTEROL RISK RATIO 3.71 (<5); CREATININE FOR GFR 0.69 MG/DL (0.55-1.30); GLOMERULAR FILTRATION RATE > 60.0 (>51); GLUCOSE, FASTING 163 MG/DL (60-100); HDL CHOLESTEROL 58.2 MG/DL (>40); LDL CHOLESTEROL 133.4 MG/DL (<100); MAGNESIUM LEVEL 1.9 MG/DL (1.8-2.4); NON-HDL-C 157.8 MG/DL; POTASSIUM SERUM 4.6 MMOL/L (3.5-5.1); SODIUM LEVEL 136 MMOL/L (136-145); TOTAL PROTEIN 7.3 G/DL (5.7-8.2); TRIGLYCERIDES LEVEL 122 MG/DL (<150)
[2024-02-19 14:54] LABS: FERRITIN 36.1 NG/ML (7.3-270.7); TOTAL 25(OH) VITAMIN D 21.9 NG/ML (20.0-100.0)
[2024-02-19 14:55] LABS: FREE T4 1.09 NG/DL (0.89-1.76); VITAMIN B12 LEVEL 342 PG/ML (211-911)
== END ==
LOC: M PLALAB 10:56
PROVIDERS: ATTEND Nurse Practitioner Adult Health
DX: D64.9 Anemia, unspecified (principal); E11.9 Type 2 diabetes mellitus without complications; E03.9 Hypothyroidism, unspecified

== ENCOUNTER → 2024-02-20 | Outpatient (CLI) | payer OTHER | LOC: M SOG 07:50 | PROVIDERS: ATTEND Physician Assistant | DX: Z53.9 Procedure and treatment not carried out, unspecified reason (principal) ==

== ENCOUNTER → 2024-03-19 | Outpatient (CLI) | payer OTHER | LOC: M PLAIMG 09:50 | PROVIDERS: ATTEND Nurse Practitioner Adult Health | DX: R06.02 Shortness of breath (principal) ==

== ENCOUNTER → 2024-07-30 | Outpatient (CLI) | payer OTHER ==
[2024-07-30 18:01] LABS: LIPASE 27 U/L (12-53)
[2024-07-30 18:02] LABS: AMYLASE 22 U/L (30-118)
[2024-07-30 18:03] LABS: ALBUMIN 3.6 G/DL (3.2-5.2); ALKALINE PHOSPHATASE 123 U/L (35-104); ALT/SGPT 36 U/L (7.0-40); AST/SGOT < 8 U/L (<34); BILIRUBIN,TOTAL 0.4 MG/DL (0.3-1.2); BLOOD UREA NITROGEN 15 MG/DL (9-23); CALCIUM LEVEL 9.7 MG/DL (8.5-10.1); CARBON DIOXIDE LEVEL 31 MMOL/L (20-31); CHLORIDE LEVEL 104 MMOL/L (98-107); GLOMERULAR FILTRATION RATE > 60.0 (>51); GLUCOSE, FASTING 154 MG/DL (60-100); POTASSIUM SERUM 4.5 MMOL/L (3.5-5.1); SODIUM LEVEL 140 MMOL/L (136-145); TOTAL PROTEIN 7.4 G/DL (5.7-8.2)
[2024-07-30 18:20] LABS: HEMOGLOBIN A1c 7.1 % (4.0-6.0)
[2024-07-30 18:26] LABS: THYROID STIMULATING HORMONE 3.584 uIU/ML (0.55-4.78)
== END ==
LOC: M PLALAB 14:01
PROVIDERS: ATTEND Nurse Practitioner Adult Health
DX: E11.9 Type 2 diabetes mellitus without complications (principal)

== ENCOUNTER → 2024-10-26 | Outpatient (REF) | payer OTHER ==
[2024-10-26 18:11] LABS: APPEARANCE, URINE CLEAR (CLEAR); BACTERIA, URINE AUTO 1+ (NEGATIVE); BILIRUBIN, URINE AUTO NEGATIVE (NEGATIVE); BLOOD, URINE BLOOD NEGATIVE (NEGATIVE); COLOR, URINE YELLOW (YELLOW); GLUCOSE, URINE (UA) AUTO NEGATIVE (NEGATIVE); KETONE, URINE AUTO NEGATIVE (NEGATIVE); LEUKOCYTE ESTERASE, URINE AUTO 2+ (NEGATIVE); NITRITE, URINE AUTO NEGATIVE (NEGATIVE); PROTEIN, URINE AUTO NEGATIVE (NEGATIVE); RBC, URINE AUTO 0 /HPF (0-3); SPECIFIC GRAVITY URINE AUTO 1.012 (1.002-1.035); SQUAMOUS EPITHELIAL CELL UR AU 2 /HPF (0-6); UROBILINOGEN, URINE AUTO 0.2 mg/dL (0.0-2.0); WBC, URINE AUTO 3 /HPF (0-3)
[2024-10-26 18:52] LABS: TOTAL PROTEIN,RANDOM URINE < 6.0 MG/DL (0.0-14.0)
== END ==
LOC: M SFHCRHEU 13:01
PROVIDERS: ATTEND Internal Medicine
DX: M06.4 Inflammatory polyarthropathy (principal)

== ENCOUNTER → 2024-11-09 | Outpatient (CLI) | payer OTHER ==
[2024-11-09 13:40] LABS: BASO % 0.4 % (0.0-1.0); EOS % 0.3 % (0.0-3.0); HEMATOCRIT 43.8 % (36.0-47.0); HEMOGLOBIN 14.3 g/dl (12.0-15.5); LYMPH % 30.6 % (24.0-44.0); MEAN CORPUSCULAR HEMOGLOBIN 28.4 pg (27.0-33.0); MEAN CORPUSCULAR HGB CONC 32.6 g/dl (32.0-36.5); MEAN CORPUSCULAR VOLUME 86.9 fl (80.0-96.0); MONO # 0.7 10^3/uL (0.0-0.8); MONO % 6.9 % (2.0-8.0); NEUTROPHILS % 61.6 % (36.0-66.0); PLATELET COUNT, AUTOMATED 424 10^3/uL (150-450); RED BLOOD COUNT 5.04 10^6/uL (4.00-5.40); WHITE BLOOD COUNT 9.7 10^3/uL (4.0-10.0)
[2024-11-09 14:04] LABS: ERYTHROCYTE SEDIMENTATION RATE 58 mm/hr (0-30)
[2024-11-09 14:16] LABS: C REACTIVE PROTEIN QUANTITATIV 2.01 MG/DL (<1.0); COMPLEMENT C3 182.8 MG/DL (90.0-170.0); COMPLEMENT C4 29.1 MG/DL (12-36)
[2024-11-09 14:17] LABS: ALBUMIN 3.8 G/DL (3.2-5.2); ALKALINE PHOSPHATASE 139 U/L (35-104); ALT/SGPT 40 U/L (7.0-40); AST/SGOT 10 U/L (<34); BILIRUBIN,DIRECT 0.2 MG/DL (<0.4); BILIRUBIN,TOTAL 0.6 MG/DL (0.3-1.2); BLOOD UREA NITROGEN 10 MG/DL (9-23); CALCIUM LEVEL 9.5 MG/DL (8.5-10.1); CARBON DIOXIDE LEVEL 29 MMOL/L (20-31); CHLORIDE LEVEL 103 MMOL/L (98-107); CREATININE FOR GFR 0.73 MG/DL (0.55-1.30); GLOMERULAR FILTRATION RATE > 60.0 (>51); GLUCOSE, FASTING 134 MG/DL (60-100); POTASSIUM SERUM 4.4 MMOL/L (3.5-5.1); SODIUM LEVEL 141 MMOL/L (136-145); TOTAL PROTEIN 7.6 G/DL (5.7-8.2)
[2024-11-13 01:47] LABS: COMPLEMENT TOTAL (CH50) > 60 U/mL (31-60)
[2024-11-13 08:28] LABS: Hexagonal Phase Phospholipid Negative (Negative); PTT-LA 41 sec (<=40); dRVVT 34 sec (<=45)
== END ==
LOC: M PLALAB 12:35
PROVIDERS: ATTEND Internal Medicine
DX: M06.4 Inflammatory polyarthropathy (principal)

== ENCOUNTER → 2024-11-22 | Outpatient (REF) | payer OTHER | LOC: M SFHCWAGY 17:15 | PROVIDERS: ATTEND Nurse Practitioner Family | DX: L29.2 Pruritus vulvae (principal) ==

== ENCOUNTER → 2025-03-17 | Outpatient (CLI) | payer OTHER ==
[2025-03-17 16:26] LABS: HEPATITIS B SURFACE ANTIBODY NEGATIVE (POSITIVE)
[2025-03-17 16:59] LABS: HEPATITIS C VIRUS ABY INDEX 0.06 INDEX (<0.8)
== END ==
LOC: M PLALAB 13:09
PROVIDERS: ATTEND Internal Medicine
DX: M32.19 Other organ or system involvement in systemic lupus erythematosus (principal); Z11.59 Encounter for screening for other viral diseases

== ENCOUNTER → 2025-03-17 | Outpatient (CLI) | payer OTHER ==
[2025-03-17 15:52] LABS: PLATELET COUNT, AUTOMATED 383 10^3/uL (150-450)
[2025-03-17 16:08] LABS: ESTIMATED AVERAGE GLUCOSE 137.0 MG/DL (60-110)
[2025-03-17 16:25] LABS: ALT/SGPT 39.0 U/L (7.0-40); AST/SGOT 16.0 U/L (<34); CALCIUM LEVEL 9.2 MG/DL (8.5-10.1); CARBON DIOXIDE LEVEL 29.0 MMOL/L (20-31); CHLORIDE LEVEL 101.0 MMOL/L (98-107); CREATININE FOR GFR 0.77 MG/DL (0.55-1.30); GLOMERULAR FILTRATION RATE 89.4 (>51); POTASSIUM SERUM 4.1 MMOL/L (3.5-5.1); SODIUM LEVEL 141.0 MMOL/L (136-145)
[2025-03-17 16:27] LABS: FREE T4 1.17 NG/DL (0.89-1.76); VITAMIN B12 LEVEL 329.0 PG/ML (211-911)
== END ==
LOC: M PLALAB 13:07
PROVIDERS: ATTEND Nurse Practitioner Adult Health
DX: E11.9 Type 2 diabetes mellitus without complications (principal); E55.9 Vitamin D deficiency, unspecified; E53.8 Deficiency of other specified B group vitamins; D64.9 Anemia, unspecified; M32.9 Systemic lupus erythematosus, unspecified; Z11.59 Encounter for screening for other viral diseases

== ENCOUNTER → 2025-04-05 | Outpatient (CLI) | payer OTHER | LOC: M WUC 15:50 | PROVIDERS: ATTEND Nurse Practitioner Family | DX: M25.571 Pain in right ankle and joints of right foot (principal) ==

== ENCOUNTER → 2025-04-19 | Outpatient (CLI) | payer OTHER | LOC: M LAB 12:12 | PROVIDERS: ATTEND Internal Medicine | DX: M32.19 Other organ or system involvement in systemic lupus erythematosus (principal) ==

== ENCOUNTER → 2025-05-19 | Outpatient (CLI) | payer OTHER | LOC: M WHC 13:56 | PROVIDERS: ATTEND Nurse Practitioner Family | DX: Z12.31 Encounter for screening mammogram for malignant neoplasm of breast (principal); R92.313 Mammographic fatty tissue density, bilateral breasts ==

== ENCOUNTER → 2025-05-19 | Outpatient (REF) | payer OTHER | LOC: M SFHCWAGY 15:10 | PROVIDERS: ATTEND Nurse Practitioner Family | DX: L29.2 Pruritus vulvae (principal) ==

== ENCOUNTER 2025-06-02 10:26 | Outpatient (RCR) | payer OTHER | END 2025-06-14 | LOC: M PT 10:26 | PROVIDERS: ATTEND Nurse Practitioner Family | DX: N39.46 Mixed incontinence (principal) ==